=== PATIENT | male | born 1950 | race Caucasian/White ===

== ENCOUNTER → 2017-12-03 21:59 | Outpatient (CLI) | payer MEDICARE, OTHER, SELFPAY ==
--- NOTE | 2017-12-03 22:05 | RAD_ITS ---
STUDY: X-RAY - RIGHT FOOT CLINICAL: Male, 67 years old. Injury to right foot 3 weeks ago. Continued pain. TECHNIQUE: 2 view(s) of the foot. COMPARISON: None. FINDINGS: There are superior and inferior calcaneal spurs. Normal visualized subtalar, talonavicular, calcaneocuboid, tarsal and tarsometatarsal articulations. Normal metatarsi. Normal metatarsophalangeal joint of the great toe. Normal tibial and fibular sesamoid bones. Normal interphalangeal joint of the great toe. Normal phalanges of the great toe. Normal second through fifth metatarsophalangeal joints. Normal interphalangeal joints and phalanges of the lesser toes. The soft tissue structures are unremarkable. RAD/Foot 2 Views IMPRESSION: Calcaneal spurs. No acute pathology. Electronically Signed: Archie Moreno MD at 16:57 EST , Service support ,
== END ==
PROVIDERS: Family Provider Family Medicine; PCP Family Medicine; Visit Provider Nurse Practitioner
DX: M77.31 Calcaneal spur, right foot (principal)
CPT/HCPCS: 73620

== ENCOUNTER → 2018-01-15 07:51 | Outpatient (CLI) | payer MEDICARE, OTHER, SELFPAY ==
[2018-01-15 09:33] LABS: Hemoglobin A1c 8.7 % (4.2-6.3)
[2018-01-15 09:55] LABS: ALB/GLOB Ratio 0.9 RATIO (0.9-2.4); AST(SGOT) 15 U/L (15-37); Alanine Aminotransfer ALT/SGPT 36 U/L (16-61); Albumin, Serum 3.6 g/dL (3.2-5.0); Alkaline Phosphatase 64 U/L (45-117); Anion Gap 10 (5-15); BUN 30 mg/dL (7-18); BUN/Creat Ratio 20.5 RATIO (10-20); Calcium,Total 8.8 mg/dL (8.5-10.1); Chloride 105 mmol/L (98-107); Cholesterol 184 mg/dL (200); Creatinine, Serum 1.46 mg/dL (0.70-1.30); EST Glomerular Filtration Rate 51 mL/min (>60); Est Glom Filt Rate - Afr Amer 62 mL/min (>60); Globulin 4.2 g/dL (2.2-4.2); Glucose 170 mg/dL (74-106); High Density Lipoprotein 35 mg/dL; Potassium 4.6 mmol/L (3.5-5.1); Protein, Total 7.8 g/dL (6.4-8.2); Sodium Level 142 mmol/L (136-145); Triglycerides 129 mg/dL; Very Low Density Lipoprotein 26 mg/dL (5-40)
[2018-01-15 11:04] LABS: Microalbumin,Random Urine 27.8 mg/L (NO RANGE EST.); Microalbumin:Creatinine Ratio 12.2 mg/g CRE (<30 mg/g CRE)
== END ==
PROVIDERS: Family Provider Family Medicine; PCP Family Medicine; Visit Provider Nurse Practitioner
DX: E11.65 Type 2 diabetes mellitus with hyperglycemia (principal)
CPT/HCPCS: 36415; 80053; 80061; 82043; 82570; 83036

== ENCOUNTER → 2018-08-09 10:26 | Outpatient (CLI) | payer MEDICARE, OTHER, SELFPAY ==
[2018-08-09 12:26] LABS: Absolute Lymphocyte Count 1.47 X10^3/ul (0.83-4.51); Absolute Neutrophil Count 3.7 X10^3/uL (2.0-7.7); Basophil# 0.04 X10^3/uL; Basophil% 0.7 % (0-1); Eosinophil# 0.12 X10^3/uL; Eosinophils% 2.1 % (0-5); Hematocrit 44.4 % (40-54); Hemoglobin 14.8 g/dl (13.0-16.5); Lymphocyte # 1.47 X10^3/ul (4.0); Lymphocyte % 25.5 % (19-41); Mean Corp Hgb Conc 33.3 g/gl (32-36); Mean Corpuscular Hgb 28.8 pg (27.0-32.0); Mean Corpuscular Volume 86.5 fL (80-94); Mean Platelet Vol. 9.8 fl (6.2-12.0); Monocyte# 0.47 X10^3/uL; Monocyte% 8.1 % (0-10); Neutrophil # 3.65 X10^3/uL (2.7-7.7); Neutrophil % 63.3 % (47-70); Platelet Count 296 K/mm3 (150-450); RBC Distribution Width CV 13.2 % (11.6-14.6); RBC Distribution Width SD 40.8 fl (35.1-43.9); Red Blood Count 5.13 M/mm3 (4.6-6.2); White Blood Count 5.8 K/mm3 (4.4-11.0)
[2018-08-09 12:32] LABS: POSITIVE COUNT NO; POSITIVE DIFFERENTIAL NO; POSITIVE MORPHOLOGY NO
[2018-08-09 12:44] LABS: Anion Gap 8 (5-15); BUN 27 mg/dL (7-18); BUN/Creat Ratio 16.9 RATIO (10-20); Calcium,Total 9.4 mg/dL (8.5-10.1); Chloride 104 mmol/L (98-107); EST Glomerular Filtration Rate 46 mL/min (>60); Est Glom Filt Rate - Afr Amer 56 mL/min (>60); Glucose 234 mg/dL (74-106); Potassium 4.6 mmol/L (3.5-5.1); Sodium Level 139 mmol/L (136-145)
[2018-08-09 12:47] LABS: Hemoglobin A1c 9.4 % (4.2-6.3)
[2018-08-09 13:01] LABS: Microalbumin,Random Urine 38.6 mg/L (NO RANGE EST.); Microalbumin:Creatinine Ratio 18.4 mg/g CRE (<30 mg/g CRE)
== END ==
PROVIDERS: Family Provider Internal Medicine; PCP Internal Medicine; Referring Provider Internal Medicine; Visit Provider Internal Medicine
DX: E11.9 Type 2 diabetes mellitus without complications (principal); I10 Essential (primary) hypertension
CPT/HCPCS: 36415; 80048; 82043; 82570; 83036; 85025

== ENCOUNTER 2018-12-11 13:03 | Outpatient (RCR) | payer MEDICARE, OTHER, SELFPAY ==
[2018-11-08 10:59] VITALS: BMI 29.6
[2018-11-22 10:20] VITALS: BMI 29.6
== END 2018-12-29 23:59 ==
LOC: DC 13:03
PROVIDERS: Family Provider Internal Medicine; PCP Internal Medicine; Visit Provider Internal Medicine
DX: E11.9 Type 2 diabetes mellitus without complications (principal); Z71.3 Dietary counseling and surveillance
CPT/HCPCS: 97802

== ENCOUNTER 2019-01-02 13:00 | Outpatient (RCR) | payer MEDICARE, OTHER, SELFPAY ==
[2018-12-24 13:39] VITALS: BMI 29.6
== END 2019-01-28 23:59 ==
LOC: DC 13:00
PROVIDERS: Family Provider Internal Medicine; PCP Internal Medicine; Visit Provider Internal Medicine
DX: E11.9 Type 2 diabetes mellitus without complications (principal); Z71.3 Dietary counseling and surveillance
CPT/HCPCS: 97803; G0108

== ENCOUNTER 2019-02-20 11:30 | Outpatient (RCR) | payer MEDICARE, OTHER, SELFPAY ==
[2018-12-24 13:39] VITALS: BMI 29.6
[2019-01-30 15:54] VITALS: BMI 29.6
== END 2019-02-20 23:59 | disposition home or self-care (01) ==
LOC: DC 11:30
PROVIDERS: Family Provider Internal Medicine; PCP Internal Medicine; Visit Provider Internal Medicine
DX: E11.9 Type 2 diabetes mellitus without complications (principal); Z71.3 Dietary counseling and surveillance
CPT/HCPCS: 97803; G0108

== ENCOUNTER → 2019-08-03 08:00 | Outpatient (CLI) | payer MEDICARE, OTHER, SELFPAY ==
[2019-07-31 14:05] VITALS: BMI 29.6
--- NOTE | 2019-08-03 08:04 | EKG12_ITS ---
Test Reason : Blood Pressure : / mmHG Vent. Rate : 067 BPM Atrial Rate : 067 BPM P-R Int : 204 ms QRS Dur : 096 ms QT Int : 408 ms P-R-T Axes : 037 -05 029 degrees QTc Int : 431 ms Normal sinus rhythm Inferior infarct , age undetermined , cannot be excluded Abnormal ECG Confirmed by VIRAL CACERES, ANNI ([id number]), news assignment editor ALVERTO CELESTIN ([id number]) on 08/04/2019 9:46:36 AM Referred By: JANI Confirmed By:ANNI STRATTON MD
[2019-08-03 08:20] LABS: Absolute Lymphocyte Count 2.37 X10^3/uL (0.83-4.51); Absolute Neutrophil Count 7.1 X10^3/uL (2.0-7.7); Basophil# 0.08 X10^3/uL; Basophil% 0.7 % (0-1); Eosinophil# 0.26 X10^3/uL; Eosinophils% 2.4 % (0-5); Hematocrit 45.9 % (40-54); Hemoglobin 14.8 g/dL (13.0-16.5); Lymphocyte # 2.37 X10^3/ul (4.0); Lymphocyte % 22.2 % (19-41); Mean Corp Hgb Conc 32.2 g/dL (32-36); Mean Corpuscular Hgb 28.1 pg (27.0-32.0); Mean Corpuscular Volume 87.1 fL (80-94); Mean Platelet Vol. 8.5 fl (6.2-12.0); Monocyte# 0.85 X10^3/uL; NRBC Flagged by Analyzer 0 % (0-5); Neutrophil # 7.09 X10^3/uL (2.7-7.7); Neutrophil % 66.3 % (47-70); Platelet Count 321 K/mm3 (150-450); RBC Distribution Width CV 13.2 % (11.6-14.6); RBC Distribution Width SD 41.5 fl (35.1-43.9); Red Blood Count 5.27 M/mm3 (4.6-6.2); White Blood Count 10.7 K/mm3 (4.4-11.0)
[2019-08-03 08:51] LABS: ALB/GLOB Ratio 0.8 RATIO (0.9-2.4); AST(SGOT) 17 U/L (15-37); Alanine Aminotransfer ALT/SGPT 32 U/L (16-61); Albumin, Serum 3.8 g/dL (3.2-5.0); Alkaline Phosphatase 63 U/L (45-117); Anion Gap 7 (5-15); BUN 28 mg/dL (7-18); BUN/Creat Ratio 18.7 RATIO (10-20); Calcium,Total 9.9 mg/dL (8.5-10.1); Chloride 104 mmol/L (98-107); Cholesterol 196 mg/dL (200); EST Glomerular Filtration Rate 49 mL/min (>60); Est Glom Filt Rate - Afr Amer 60 mL/min (>60); Globulin 4.5 g/dL (2.2-4.2); Glucose 157 mg/dL (74-106); High Density Lipoprotein 42 mg/dL; PSA,Total - Annual Screen 0.24 ng/mL (0.00-4.00); Potassium 4.4 mmol/L (3.5-5.1); Protein, Total 8.3 g/dL (6.4-8.2); Sodium Level 138 mmol/L (136-145); Triglycerides 100 mg/dL; Very Low Density Lipoprotein 20 mg/dL (5-40)
[2019-08-03 10:56] LABS: Microalbumin,Random Urine 21.4 mg/L (NO RANGE EST.)
== END ==
PROVIDERS: Family Provider Internal Medicine; PCP Internal Medicine; Visit Provider Internal Medicine
DX: E11.9 Type 2 diabetes mellitus without complications (principal); E78.5 Hyperlipidemia, unspecified; I10 Essential (primary) hypertension; K21.9 Gastro-esophageal reflux disease without esophagitis; N40.0 Benign prostatic hyperplasia without lower urinary tract symptoms; Z12.5 Encounter for screening for malignant neoplasm of prostate
CPT/HCPCS: 80053; 80061; 82043; 82570; 84153; 85025; 93005; G0103

== ENCOUNTER → 2019-08-14 06:12 | Outpatient (CLI) | payer MEDICARE, OTHER, SELFPAY ==
[2019-07-31 14:05] VITALS: BMI 29.6
--- NOTE | 2019-08-15 12:53 | STRESSREP ---
Stress Test Report Date: 08/14/2019 Procedure: Pharmacologic stress nuclear imaging study Indications: Abnormal EKG Consent: Per the patient Procedure: The patient underwent pharmacologic (Regadenoson) evaluation with a peak heart rate of 104 beats per minute (68 %predicted maximal heart rate) and a peak blood pressure of 190/110 mmHg. The baseline ECG demonstrated normal sinus rhythm. EKG during lexiscan infusion revealed no significant ischemic changes. EKG post infusion revealed no significant ischemic changes Patient had episodes of type I and type II second-degree AV block with Lexiscan infusion which resolved on its own. [There was no complaint of chest discomfort during pharmacologic infusion or recovery]. The examination was discontinued secondary to completion of protocol. Impression: 1. Lexiscan stress test test is negative for Lexiscan infusion induced EKG changes of ischemia. 2. Lexiscan stress test test is negative for Lexiscan infusion induced chest pain. 3. Results of the nuclear portion of the test is as below Myocardial perfusion imaging study: Technique: The patient was injected with 10 millicuries of technetium 99m Cardiolite and subsequently rest SPECT Cardiolite nuclear imaging was obtained in the horizontal long, vertical long, and short axis views. The patient underwent pharmacologic (Regadenoson) evaluation. Please see above for details. The patient was injected with 30 millicuries of technetium 99m Cardiolite and subsequently stress SPECT Cardiolite nuclear imaging was obtained in the horizontal long, vertical long, and short axis views. A gated Cardiolite study at peak stress was obtained. Interpretation: Rest and stress SPECT Cardiolite nuclear imaging status post realignment, normalization, and attenuation correction demonstrate [overall normal myocardial radioisotope uptake with no evidence of significant ischemia or infarction]. Gated images reveal significant regional wall motion abnormalities. The reported LVEF is 63 %. Impression: 1. There is no evidence of significant ischemia or infarction. 2. Estimated ejection fraction is 63%. This note was generated with [facility] software. It may contain incorrect words, spelling, and punctuation that were not noted in checking the note before signing.
== END ==
PROVIDERS: Family Provider Internal Medicine; PCP Internal Medicine; Referring Provider Internal Medicine; Visit Provider Internal Medicine
DX: E11.9 Type 2 diabetes mellitus without complications (principal); I10 Essential (primary) hypertension; R94.31 Abnormal electrocardiogram [ECG] [EKG]
CPT/HCPCS: 78452; 93017; A9500; A4216; J2785

== ENCOUNTER → 2020-01-21 08:03 | Outpatient (CLI) | payer MEDICARE, OTHER, SELFPAY ==
[2020-01-20 13:49] VITALS: BMI 29.6
[2020-01-21 08:56] LABS: Anion Gap 8 (5-15); BUN 28 mg/dL (7-18); BUN/Creat Ratio 19.9 RATIO (10-20); Calcium,Total 9.3 mg/dL (8.5-10.1); Chloride 110 mmol/L (98-107); Creatinine, Serum 1.41 mg/dL (0.70-1.30); EST Glomerular Filtration Rate 53 mL/min (>60); Est Glom Filt Rate - Afr Amer 64 mL/min (>60); Glucose 140 mg/dL (74-106); Potassium 4.2 mmol/L (3.5-5.1); Sodium Level 142 mmol/L (136-145)
[2020-01-21 08:59] LABS: Hemoglobin A1c 8.5 % (4.2-6.3)
== END ==
PROVIDERS: PCP Internal Medicine; Referring Provider Internal Medicine; Visit Provider Internal Medicine
DX: E11.9 Type 2 diabetes mellitus without complications (principal); I10 Essential (primary) hypertension
CPT/HCPCS: 36415; 80048; 83036

== ENCOUNTER → 2020-04-26 22:47 | Outpatient (CLI) | payer MEDICARE, OTHER, SELFPAY ==
[2020-04-21 10:53] VITALS: BMI 29.6
--- NOTE | 2020-04-27 | RAD_ITS ---
STUDY: X-RAY - PELVIS AND RIGHT HIP REASON FOR EXAM: Male, 69 years old. C/O RT HIP PAIN X 2 MONTHS -- NKI TECHNIQUE: 3 views of the pelvis and hip. COMPARISON: None. FINDINGS: There is a non-specific bowel gas pattern. There is vascular calcification of the left greater than right superficial femoral artery. There is abundant stool in the visualized colon. There is visualized degenerative change in the lumbar spine. Normal bilateral iliac wings, sacroiliac joints and visualized sacrum. Normal bilateral superior and inferior pubic rami. Normal pubic symphysis. Normal bilateral ischial tuberosities. There is mild degenerative change in the hip joints. There is no visualized acute fracture. RAD/HIP, UNI W/ Pelvis 2-3 Views IMPRESSION: Mild Degenerative change. No visualized acute fracture. Electronically Signed: Alfreda Gutierrez MD at 5:20 EDT Tel , Service support ,
== END ==
PROVIDERS: PCP Internal Medicine; Visit Provider Internal Medicine
DX: M16.11 Unilateral primary osteoarthritis, right hip (principal)
CPT/HCPCS: 73502

== ENCOUNTER → 2020-08-14 08:07 | Outpatient (CLI) | payer MEDICARE, OTHER, SELFPAY ==
[2020-07-29 14:05] VITALS: BMI 29.4
[2020-08-14 08:57] LABS: Absolute Lymphocyte Count 2.25 X10^3/uL (0.83-4.51); Absolute Neutrophil Count 4.4 X10^3/uL (2.0-7.7); Basophil# 0.06 X10^3/uL; Basophil% 0.8 % (0-1); Eosinophil# 0.29 X10^3/uL; Eosinophils% 3.8 % (0-5); Hematocrit 45.6 % (40-54); Hemoglobin 14.2 g/dL (13.0-16.5); Lymphocyte # 2.25 X10^3/ul (4.0); Lymphocyte % 29.2 % (19-41); Mean Corp Hgb Conc 31.1 g/dL (32-36); Mean Corpuscular Hgb 27.7 pg (27.0-32.0); Mean Corpuscular Volume 88.9 fL (80-94); Mean Platelet Vol. 8.8 fl (6.2-12.0); Monocyte# 0.69 X10^3/uL; NRBC Flagged by Analyzer 0 % (0-5); Neutrophil # 4.38 X10^3/uL (2.7-7.7); Neutrophil % 56.8 % (47-70); Platelet Count 304 K/mm3 (150-450); RBC Distribution Width CV 13.2 % (11.6-14.6); RBC Distribution Width SD 42.9 fl (35.1-43.9); Red Blood Count 5.13 M/mm3 (4.6-6.2); White Blood Count 7.7 K/mm3 (4.4-11.0)
[2020-08-14 09:25] LABS: ALB/GLOB Ratio 0.9 RATIO (0.9-2.4); AST(SGOT) 8 U/L (15-37); Alanine Aminotransfer ALT/SGPT 26 U/L (16-61); Albumin, Serum 3.6 g/dL (3.2-5.0); Alkaline Phosphatase 59 U/L (45-117); Anion Gap 5 (5-15); BUN 28 mg/dL (7-18); BUN/Creat Ratio 20.3 RATIO (10-20); Calcium,Total 9.3 mg/dL (8.5-10.1); Chloride 109 mmol/L (98-107); Cholesterol 138 mg/dL (200); Creatinine, Serum 1.38 mg/dL (0.70-1.30); EST Glomerular Filtration Rate 54 mL/min (>60); Est Glom Filt Rate - Afr Amer 66 mL/min (>60); Globulin 4.1 g/dL (2.2-4.2); Glucose 82 mg/dL (74-106); High Density Lipoprotein 50 mg/dL; Potassium 3.9 mmol/L (3.5-5.1); Protein, Total 7.7 g/dL (6.4-8.2); Sodium Level 142 mmol/L (136-145); Triglycerides 75 mg/dL; Very Low Density Lipoprotein 15 mg/dL (5-40)
[2020-08-14 09:31] LABS: Microalbumin,Random Urine 12.4 mg/L (NO RANGE EST.); Microalbumin:Creatinine Ratio 9.5 mg/g CRE (<30 mg/g CRE)
== END ==
PROVIDERS: PCP Internal Medicine; Referring Provider Internal Medicine; Visit Provider Internal Medicine
DX: E11.9 Type 2 diabetes mellitus without complications (principal); I10 Essential (primary) hypertension; E78.5 Hyperlipidemia, unspecified
CPT/HCPCS: 36415; 80053; 80061; 82043; 82570; 85025

== ENCOUNTER → 2020-09-30 14:08 | Outpatient (CLI) | payer MEDICARE, OTHER, SELFPAY ==
[2020-09-30 15:17] LABS: Absolute Lymphocyte Count 2.17 X10^3/uL (0.83-4.51); Absolute Neutrophil Count 6.6 X10^3/uL (2.0-7.7); Basophil# 0.06 X10^3/uL; Basophil% 0.6 % (0-1); Eosinophil# 0.21 X10^3/uL; Eosinophils% 2.2 % (0-5); Hematocrit 43.8 % (40-54); Hemoglobin 14.5 g/dL (13.0-16.5); Lymphocyte # 2.17 X10^3/ul (4.0); Lymphocyte % 22.5 % (19-41); Mean Corp Hgb Conc 33.1 g/dL (32-36); Mean Corpuscular Hgb 27.9 pg (27.0-32.0); Mean Corpuscular Volume 84.2 fL (80-94); Monocyte# 0.56 X10^3/uL; Monocyte% 5.8 % (0-10); NRBC Flagged by Analyzer 0 % (0-5); Neutrophil # 6.62 X10^3/uL (2.7-7.7); Neutrophil % 68.6 % (47-70); Platelet Count 302 K/mm3 (150-450); RBC Distribution Width SD 39.8 fl (35.1-43.9); White Blood Count 9.7 K/mm3 (4.4-11.0)
[2020-09-30 15:30] LABS: ALB/GLOB Ratio 0.9 RATIO (0.9-2.4); AST(SGOT) 11 U/L (15-37); Alanine Aminotransfer ALT/SGPT 28 U/L (16-61); Albumin, Serum 3.7 g/dL (3.2-5.0); Alkaline Phosphatase 55 U/L (45-117); Anion Gap 7 (5-15); BUN 32 mg/dL (7-18); BUN/Creat Ratio 24.1 RATIO (10-20); Calcium,Total 9.3 mg/dL (8.5-10.1); Chloride 102 mmol/L (98-107); Creatinine, Serum 1.33 mg/dL (0.70-1.30); EST Glomerular Filtration Rate 57 mL/min (>60); Est Glom Filt Rate - Afr Amer 69 mL/min (>60); Globulin 3.9 g/dL (2.2-4.2); Glucose 243 mg/dL (74-106); Potassium 4.1 mmol/L (3.5-5.1); Protein, Total 7.6 g/dL (6.4-8.2); Sodium Level 133 mmol/L (136-145)
== END ==
PROVIDERS: PCP Internal Medicine; Referring Provider Internal Medicine; Visit Provider Internal Medicine
DX: R42 Dizziness and giddiness (principal)
CPT/HCPCS: 36415; 80053; 85025

== ENCOUNTER → 2020-10-10 11:47 | Outpatient (CLI) | payer MEDICARE, OTHER, SELFPAY ==
--- NOTE | 2020-10-10 11:50 | RAD_ITS ---
STUDY: X-RAY - CERVICAL SPINE REASON FOR EXAM: Male, 70 years old. neck pain, vertigo TECHNIQUE: 3 view(s) of the cervical spine were obtained. COMPARISON: None FINDINGS: Normal anterior atlantoaxial articulation. Normal odontoid process. Normal cervical lordosis. There is mild spondylosis of the mid cervical levels. Normal disc space heights. No subluxation. There are atherosclerotic vascular calcifications of the carotid arteries. RAD/Cerv Spine 2 or 3 Views IMPRESSION: Minor cervical spondylosis. Preservation of disc heights. Atherosclerosis of the carotid arteries. Electronically Signed: Josué Rodriguez MD ([place]oks) at 14:10 EST , Service support ,
== END ==
PROVIDERS: PCP Internal Medicine; Visit Provider Internal Medicine
DX: M45.2 Ankylosing spondylitis of cervical region (principal); R42 Dizziness and giddiness
CPT/HCPCS: 72040

== ENCOUNTER → 2020-10-28 13:53 | Outpatient (CLI) | payer MEDICARE, OTHER, SELFPAY ==
[2020-10-28 13:11] VITALS: BMI 30.4
[2020-10-28 15:10] LABS: Absolute Lymphocyte Count 2.22 X10^3/uL (0.83-4.51); Absolute Neutrophil Count 4.6 X10^3/uL (2.0-7.7); Basophil# 0.07 X10^3/uL; Basophil% 0.9 % (0-1); Eosinophil# 0.23 X10^3/uL; Hematocrit 42.9 % (40-54); Hemoglobin 13.8 g/dL (13.0-16.5); Lymphocyte # 2.22 X10^3/ul (4.0); Lymphocyte % 28.6 % (19-41); Mean Corp Hgb Conc 32.2 g/dL (32-36); Mean Corpuscular Hgb 27.6 pg (27.0-32.0); Mean Corpuscular Volume 85.8 fL (80-94); Mean Platelet Vol. 8.9 fl (6.2-12.0); Monocyte# 0.59 X10^3/uL; Monocyte% 7.6 % (0-10); NRBC Flagged by Analyzer 0 % (0-5); Neutrophil # 4.63 X10^3/uL (2.7-7.7); Neutrophil % 59.5 % (47-70); Platelet Count 294 K/mm3 (150-450); RBC Distribution Width CV 13.2 % (11.6-14.6); RBC Distribution Width SD 40.2 fl (35.1-43.9); White Blood Count 7.8 K/mm3 (4.4-11.0)
[2020-10-28 15:19] LABS: Erythrocyte Sedimentation Rate 11 mm/hr (0-20)
[2020-10-28 15:22] LABS: Bacteria 0 SEEN /hpf (None Seen); Mucous, Urine 0 SEEN /hpf (<or=2+); Red Blood Cells-Urine 0 SEEN /hpf (0-5); Squamous Epithelial Cells - UA 0 SEEN /hpf (0-5)
[2020-10-28 15:28] LABS: AST(SGOT) 11 U/L (15-37); Alanine Aminotransfer ALT/SGPT 28 U/L (16-61); Albumin, Serum 3.7 g/dL (3.2-5.0); Alkaline Phosphatase 53 U/L (45-117); Anion Gap 5 (5-15); BUN 31 mg/dL (7-18); BUN/Creat Ratio 20.3 RATIO (10-20); CRP < 2.90 mg/L (0.0-3.0); Calcium,Total 9.2 mg/dL (8.5-10.1); Chloride 106 mmol/L (98-107); Creatinine, Serum 1.53 mg/dL (0.70-1.30); EST Glomerular Filtration Rate 48 mL/min (>60); Est Glom Filt Rate - Afr Amer 58 mL/min (>60); Globulin 3.8 g/dL (2.2-4.2); Glucose 111 mg/dL (74-106); Hemoglobin A1c 8.7 % (3.8-5.6); Potassium 4.3 mmol/L (3.5-5.1); Protein, Total 7.5 g/dL (6.4-8.2); Sodium Level 139 mmol/L (136-145)
--- NOTE | 2020-10-28 15:45 | RAD_ITS ---
STUDY: X-RAY CHEST REASON FOR EXAM: Male, 70 years old. MALAISE, FATIGUE, NO CHEST COMPLAINTS, NECK PAIN AND STIFFNESS TECHNIQUE: PA and lateral views of the chest. COMPARISON: None. FINDINGS: The lungs are clear and expanded. There is no demonstrated pleural abnormality. Normal size heart. Normal mediastinum and thierno. Normal visualized pulmonary arteries. Normal visualized aortic arch and descending thoracic aorta. There are diffuse degenerative changes of the visualized thoracic spine. Normal visualized ribs, clavicles, and shoulders. There is no demonstrated abnormality of the visualized soft tissue structures of the upper abdomen. RAD/Chest PA and Lateral IMPRESSION: No acute abnormality is seen. Electronically Signed: Jude Aguayo MD at 9:42 EST , Service support ,
[2020-10-28 17:44] LABS: Color, Urine Yellow (Yellow); Glucose, Dipstick 100 mg/dl (Normal); Ketone-Dipstick 5 mg/dl (Negative); Leukocyte Esterase-Dipstick 25 /ul (Negative); Nitrite-Dipstick Negative (Negative); Occult Blood-Urine Negative /ul (Negative); Protein-Dipstick 30 mg/dl (Negative); Specific Gravity, Urine 1.015 (1.002-1.030); Urine Clarity Clear (Clear); Urine Urobilinogen Normal (Normal)
[2020-10-28 17:57] LABS: Microalbumin:Creatinine Ratio 59.9 mg/g CRE (<30 mg/g CRE); Urine Bilirubin Dipstick 1 mg/dL (Negative)
[2020-10-28 18:32] LABS: Hyaline Cast 5-10 SEEN /lpf (0-5); White Blood Cells 0-5 SEEN /hpf (0-5)
== END ==
PROVIDERS: PCP Internal Medicine; Referring Provider Internal Medicine; Visit Provider Internal Medicine
DX: R53.81 Other malaise (principal); R53.83 Other fatigue; E11.9 Type 2 diabetes mellitus without complications
CPT/HCPCS: 36415; 71046; 80053; 81001; 82043; 82570; 83036; 85025; 85652; 86140

== ENCOUNTER 2020-11-05 13:32 | Outpatient (RCR) | payer MEDICARE, OTHER, SELFPAY ==
[2020-10-28 13:11] VITALS: BMI 30.4
== END 2020-11-05 23:59 ==
LOC: IMMUN 13:32
PROVIDERS: PCP Internal Medicine; Visit Provider Family Medicine
DX: Z23 Encounter for immunization (principal)
CPT/HCPCS: 0011A; 0012A

== ENCOUNTER → 2020-11-09 10:37 | Outpatient (CLI) | payer MEDICARE, OTHER, SELFPAY ==
[2020-10-28 13:11] VITALS: BMI 30.4
--- NOTE | 2020-11-09 10:41 | CDU_ITS ---
Reason For Study: carotid stenosis, dizziness Rt. Velocities/BP Lt. Velocities/BP Prox CCA 51.3/13.4 cm/sec. Prox CCA 86.3/22.5 cm/sec. Mid CCA 48.6/13.4 cm/sec. Mid CCA 92.5/23.7 cm/sec. Dist CCA 49.9/12.1 cm/sec. Dist CCA 87.6/22.5 cm/sec. Prox ICA 266.0/78.5 cm/sec. Prox ICA 144.8/37.1 cm/sec. Mid ICA 153.6/44.8 cm/sec. Mid ICA 113.8/35.3 cm/sec. Dist ICA 275.5/79.6 cm/sec. Dist ICA 68.3/19.3 cm/sec. Rt. ICA/CCA = 5.6. Lt. ICA/CCA = 1.6. Prox ECA 141.2/17.0 cm/sec. Prox ECA 171.8/22.6 cm/sec. Rt. Vert. 40.9/12.6 cm/sec. Lt. Vert. 26.4/6.4 cm/sec. Right Extracranial There is homogeneous, smooth atherosclerotic plaque noted in the right common carotid artery. There is heterogeneous, irregular atherosclerotic plaque noted in the right internal carotid artery. There is heterogeneous, irregular atherosclerotic plaque noted in the right external carotid artery. Antegrade flow is noted in the right vertebral artery. Left Extracranial There is homogeneous, smooth atherosclerotic plaque noted in the left common carotid artery. There is heterogeneous, irregular atherosclerotic plaque noted in the left internal carotid artery. There is heterogeneous, irregular atherosclerotic plaque noted in the left external carotid artery. Antegrade flow is noted in the left vertebral artery. Procedure Carotid Duplex [id number]. This is a Carotid Duplex examination using B-mode, color flow and specral Doppler. The exam was diagnostic. Exam performed in department. Interpretation Summary Irregular calcific plaque with shadowing at the proximal right internal carotid artery with greater than 70% stenosis. <50% stenosis right external carotid Irregular calcific plaque with shadowing at the proximal left internal carotid artery with 50 to 69% stenosis. <50% stenosis left external carotid Patent and antegrade vertebrals bilaterally Ordering Physician: Severino Hylton Performed By: Monico Marroquin RVT
== END ==
PROVIDERS: PCP Internal Medicine; Referring Provider Internal Medicine; Visit Provider Internal Medicine
DX: I65.23 Occlusion and stenosis of bilateral carotid arteries (principal); R42 Dizziness and giddiness
CPT/HCPCS: 93880

== ENCOUNTER → 2020-11-19 12:55 | Outpatient (CLI) | payer MEDICARE, OTHER, SELFPAY ==
[2020-11-12 13:07] VITALS: BMI 29.4
--- NOTE | 2020-11-19 12:57 | CT_ITS ---
EXAM: CT ANGIOGRAPHY NECK WITHOUT AND WITH INTRAVENOUS CONTRAST CLINICAL INDICATION: BILATERAL CAROTID STENOSIS TECHNIQUE: Routine carotid CT angiography protocol was performed without and with intravenous contrast. Nascet criteria using the distal ICAs for comparison were used for evaluation of stenoses. This CT exam was performed using one or more of the following dose reduction techniques: automated exposure control, adjustment of the mA and/or kV according to patient size, and/or use of iterative reconstruction technique. This report was created using [employer] report generation technology. 3D and MIP reconstructed images were created and reviewed. CONTRAST: IV 100ML ISOVUE 370 COMPARISON: None. FINDINGS: VASCULATURE: RIGHT COMMON CAROTID ARTERY: Unremarkable. No occlusion or significant stenosis. No dissection. RIGHT INTERNAL CAROTID ARTERY: Calcified and noncalcified plaque of the proximal right ICA. 2 cm long luminal narrowing with short segment (6 mm) long severe (78%) stenosis, 1.5 cm distal to the carotid bifurcation. RIGHT EXTERNAL CAROTID ARTERY: Atherosclerosis with mild stenosis of the right external carotid artery. No occlusion. RIGHT VERTEBRAL ARTERY: The right vertebral artery is dominant. No occlusion or significant stenosis. No dissection. LEFT COMMON CAROTID ARTERY: Unremarkable. No occlusion or significant stenosis. No dissection. LEFT INTERNAL CAROTID ARTERY: Calcified and noncalcified plaque in the proximal left ICA. 1.9 cm long luminal narrowing with stenosis measuring up to 60%, 9 mm beyond the carotid bifurcation. LEFT EXTERNAL CAROTID ARTERY: Atherosclerosis with mild stenosis of the left external carotid artery. No occlusion. LEFT VERTEBRAL ARTERY: Unremarkable. No occlusion or significant stenosis. No dissection. GREAT VESSELS OF AORTIC ARCH: Unremarkable. Normal anatomy, patent. NECK: BONES/JOINTS: Unremarkable. SOFT TISSUES: Unremarkable. LUNG APICES: Clear. CAROTID STENOSIS REFERENCE USING NASCET CRITERIA: % ICA stenosis = (1 - narrowest ICA diameter/diameter of distal cervical ICA) x 100. Mild - <50% stenosis. Moderate - 50-69% stenosis. Severe - 70-94% stenosis. Near occlusion - 95-99% stenosis. Occluded - 100% stenosis. CT/CTA Neck W/WO Contrast IMPRESSION: 1. Severe right ICA stenosis, 78%. 2. Moderate left ICA stenosis, 60%. Electronically Signed: Josué Rodriguez MD ([place]) at 16:58 EST , Service support ,
[2020-11-19 13:11] VITALS: BP 186/95; PULSE 62; RESP 16; TEMP 36.6; O2SAT 99; BMI 28.1
[2020-11-19] MEDS: 0.9% Normal Saline 1,000 ML 500 ML IV (13:14)
== END ==
PROVIDERS: PCP Internal Medicine; Referring Provider Surgery; Visit Provider Surgery
DX: I65.23 Occlusion and stenosis of bilateral carotid arteries (principal)
CPT/HCPCS: 70498; J7030; Q9967; A4216

== ENCOUNTER 2020-12-01 05:25 | Inpatient (IN) | payer MEDICARE, OTHER, SELFPAY ==
[2020-11-23 14:40] VITALS: BMI 29.4
[2020-11-27 09:58] LABS: Absolute Lymphocyte Count 2.33 X10^3/uL (0.83-4.51); Absolute Neutrophil Count 4.7 X10^3/uL (2.0-7.7); Basophil# 0.06 X10^3/uL; Basophil% 0.7 % (0-1); Eosinophil# 0.23 X10^3/uL; Eosinophils% 2.8 % (0-5); Hematocrit 47.8 % (40-54); Hemoglobin 15.3 g/dL (13.0-16.5); Lymphocyte # 2.33 X10^3/ul (4.0); Lymphocyte % 28.3 % (19-41); Mean Corpuscular Volume 87.4 fL (80-94); Monocyte% 10.9 % (0-10); NRBC Flagged by Analyzer 0 % (0-5); Neutrophil # 4.69 X10^3/uL (2.7-7.7); Neutrophil % 56.9 % (47-70); Platelet Count 344 K/mm3 (150-450); RBC Distribution Width CV 13.2 % (11.6-14.6); RBC Distribution Width SD 42.5 fl (35.1-43.9); Red Blood Count 5.47 M/mm3 (4.6-6.2); White Blood Count 8.2 K/mm3 (4.4-11.0)
[2020-11-27 10:16] LABS: Anion Gap 7 (5-15); BUN 31 mg/dL (7-18); Calcium,Total 9.2 mg/dL (8.5-10.1); Chloride 104 mmol/L (98-107); Creatinine, Serum 1.72 mg/dL (0.70-1.30); EST Glomerular Filtration Rate 42 mL/min (>60); Est Glom Filt Rate - Afr Amer 51 mL/min (>60); Glucose 186 mg/dL (74-106); Potassium 4.5 mmol/L (3.5-5.1); Sodium Level 139 mmol/L (136-145)
[2020-11-27 10:20] LABS: Hemoglobin A1c 8.4 % (3.8-5.6)
--- NOTE | 2020-11-29 09:15 | EKG12_ITS ---
Test Reason : PRE SURGEY Blood Pressure : / mmHG Vent. Rate : 067 BPM Atrial Rate : 067 BPM P-R Int : 192 ms QRS Dur : 092 ms QT Int : 402 ms P-R-T Axes : 044 027 044 degrees QTc Int : 424 ms Normal sinus rhythm Normal ECG Confirmed by EDWIN CACERES, GRISELDA ([id number]), medical editor ALVERTO CELESTIN ([id number]) on 11/30/2020 10:30:03 AM Referred By: Hai Schmid Confirmed By:GRISELDA PINEDA MD
--- NOTE | 2020-11-29 10:25 | EKG12_ITS ---
Test Reason : PRE SURGEY Blood Pressure : / mmHG Vent. Rate : 069 BPM Atrial Rate : 069 BPM P-R Int : 200 ms QRS Dur : 090 ms QT Int : 400 ms P-R-T Axes : 043 037 051 degrees QTc Int : 428 ms Normal sinus rhythm Normal ECG When compared with ECG of 03-AUG-2019 09:06, Criteria for Inferior infarct are no longer Present Confirmed by EDWIN CACERES, GRISELDA ([id number]), editor continuity and script ALVERTO CELESTIN ([id number]) on 11/30/2020 1:14:42 PM Referred By: Hai Schmid Confirmed By:GRISELDA PINEDA MD
[2020-12-01] VITALS (29 sets, daily range): BP systolic 114–188; BP diastolic 64–99; PULSE 62–97; RESP 16–18; TEMP 35.9–36.9; O2SAT 92–100; BMI 30.9
--- NOTE | 2020-12-01 05:49 | HP.PCM_ITS ---
Problem List (1) Carotid stenosis, bilateral Status: Acute (2) Dizziness, nonspecific Status: Acute History and Physical Date of Admission: 12/01/20 Intake Visit Reasons: F/U Neck CTA 11/19 Chief Complaint: discuss carotid US and CTA Customer Operations Representative Required: No Is patient in pain?: No Allergies Penicillins Allergy (Severe, Verified 11/23/20 14:40) Unknown Medications Pen needles #100 ea 11/08/18 [Rx Confirmed 11/23/20] flash glucose scanning reader See Rx Instructions .ROUTE .MEDSUPPLY #1 ea 02/10/20 [Rx Confirmed 11/23/20] flash glucose sensor See Rx Instructions .ROUTE .MEDSUPPLY #1 ea 02/10/20 [Rx Confirmed 11/23/20] blood-glucose meter See Rx Instructions .ROUTE .MEDSUPPLY #1 ea 02/21/20 [Rx Confirmed 11/23/20] rosuvastatin 20 mg tablet 20 mg PO DAILY #90 tab 05/25/20 [Rx Confirmed 11/23/20] FreeStyle Lite Strips See Dose Instructions .ROUTE .MEDSUPPLY #100 ea NS 06/17/20 [Rx Confirmed 11/23/20] lisinopril 10 mg-hydrochlorothiazide 12.5 mg tablet 1 tab PO BID #180 tab 07/15/20 [Rx Confirmed 11/23/20] pantoprazole 40 mg tablet,delayed release 40 mg PO QDAY #90 tab 09/27/20 [Rx Confirmed 11/23/20] meclizine 25 mg tablet 25 mg PO BID PRN #60 tab 09/30/20 [Rx Confirmed 11/23/20] metformin 850 mg tablet See Rx Instructions .ROUTE .COMPLEX #180 tab 10/22/20 [Rx Confirmed 11/23/20] insulin human U-100 NPH-regulr 70-30 mix 100 unit/mL subcutaneous susp See Rx Instructions SC QAM ml 10/28/20 [History Confirmed 11/23/20] aspirin 81 mg tablet,delayed release 81 mg PO DAILY #90 tab 11/09/20 [Rx Confirmed 11/23/20] [facility] Medical History Carotid stenosis, bilateral (Acute) Right hip pain (Chronic) Chronic kidney disease, stage III (moderate) (Chronic) Hyperlipidemia (Chronic) Type 2 diabetes mellitus (Chronic) Vision problems (Chronic) Skin cancer (Chronic) GERD (gastroesophageal reflux disease) (Chronic) High cholesterol (Chronic) Diabetes type 2, controlled (Chronic) Arthritis (Chronic) Seasonal allergies (Chronic) HTN (hypertension) (Chronic) Hypertension, essential (Acute) Diabetes mellitus type 1, controlled, without complications (Acute) Surgical History History of esophageal dilatation (Acute) History of esophagogastroduodenoscopy (EGD) (Acute) Family History Mother Breast cancer Myocardial infarction Hypertension Diabetes Heart disease CAD (coronary artery disease) Father Myocardial infarction Social History (Updated 11/23/20 @ 15:[address] Hai Schmid MD) Smoking Status: Never smoker second hand exposure: No alcohol intake: current alcohol intake frequency: a few times a month Alcohol type: beer substance use type: does not use caffeine: Yes what type of physical activity do you participate in: aerobics, weight training frequency: 3-4 times per week HPI HPI HPI: REJI JUSTICE, is a 70 M who presents to the office today for Surgical follow-up of his CTA of the carotid.The CT demonstrates a high-grade stenosis of the right internal carotid as noted below. My previous office notes are reflected below as well.The patient still has nonspecific dizziness issues. If he turns over in bed he will feel like the room is spinning. Sometimes in the car he will feel a motion type of affect. He denies any focal motor or sensory loss. No speech deficit. [facility] Imaging Services [address] [place] [id number] CTA Neck W/WO Contrast MR#: [id number] Name: REJI JUSTICE LEERep #:[id number] : 1950M 70 From: Josué Rodriguez MD PCP:Dr. Severino Hylton MD Status:REG CLI Study:CTA Neck W/WO Contrast Date of Exam:11/19/20 Exam#[id number] Ordering Dr: Hai Schmid MD EXAM: CT ANGIOGRAPHY NECK WITHOUT AND WITH INTRAVENOUS CONTRAST CLINICAL INDICATION: BILATERAL CAROTID STENOSIS TECHNIQUE: Routine carotid CT angiography protocol was performed without and with intravenous contrast. Nascet criteria using the distal ICAs for comparison were used for evaluation of stenoses. This CT exam was performed using one or more of the following dose reduction techniques: automated exposure control, adjustment of the mA and/or kV according to patient size, and/or use of iterative reconstruction technique. This report was created using [employer] report Snapette technology. 3D and MIP reconstructed images were created and reviewed. CONTRAST: IV 100ML ISOVUE 370 COMPARISON: None. FINDINGS: VASCULATURE: RIGHT COMMON CAROTID ARTERY: Unremarkable. No occlusion or significant stenosis. No dissection. RIGHT INTERNAL CAROTID ARTERY: Calcified and noncalcified plaque of the proximal right ICA. 2 cm long luminal narrowing with short segment (6 mm) long severe (78%) stenosis, 1.5 cm distal to the carotid bifurcation. RIGHT EXTERNAL CAROTID ARTERY: Atherosclerosis with mild stenosis of the right external carotid artery. No occlusion. RIGHT VERTEBRAL ARTERY: The right vertebral artery is dominant. No occlusion or significant stenosis. No dissection. LEFT COMMON CAROTID ARTERY: Unremarkable. No occlusion or significant stenosis. No dissection. LEFT INTERNAL CAROTID ARTERY: Calcified and noncalcified plaque in the proximal left ICA. 1.9 cm long luminal narrowing with stenosis measuring up to 60%, 9 mm beyond the carotid bifurcation. LEFT EXTERNAL CAROTID ARTERY: Atherosclerosis with mild stenosis of the left external carotid artery. No occlusion. LEFT VERTEBRAL ARTERY: Unremarkable. No occlusion or significant stenosis. No dissection. GREAT VESSELS OF AORTIC ARCH: Unremarkable. Normal anatomy, patent. NECK: BONES/JOINTS: Unremarkable. SOFT TISSUES: Unremarkable. LUNG APICES: Clear. CAROTID STENOSIS REFERENCE USING NASCET CRITERIA: % ICA stenosis = (1 - narrowest ICA diameter/diameter of distal cervical ICA) x 100. Mild - <50% stenosis. Moderate - 50-69% stenosis. Severe - 70-94% stenosis. Near occlusion - 95-99% stenosis. Occluded - 100% stenosis. CT/CTA Neck W/WO Contrast IMPRESSION: 1. Severe right ICA stenosis, 78%. 2. Moderate left ICA stenosis, 60%. Electronically Signed: Josué Rodriguez MD (Brooks) at 16:58 EST , Service support , Intake Visit Reasons: CAROTID STENOSIS Chief Complaint: Carotid Stenosis Customer Operations Representative Required: No Is patient in pain?: No Allergies Penicillins Allergy (Severe, Verified 11/12/20 12:40) Unknown Medications Pen needles #100 ea 11/08/18 [Rx Confirmed 11/12/20] flash glucose scanning reader See Rx Instructions .ROUTE .MEDSUPPLY #1 ea 02/10/20 [Rx Confirmed 11/12/20] flash glucose sensor See Rx Instructions .ROUTE .MEDSUPPLY #1 ea 02/10/20 [Rx Confirmed 11/12/20] blood-glucose meter See Rx Instructions .ROUTE .MEDSUPPLY #1 ea 02/21/20 [Rx Confirmed 11/12/20] rosuvastatin 20 mg tablet 20 mg PO DAILY #90 tab 05/25/20 [Rx Confirmed 11/12/20] FreeStyle Lite Strips See Dose Instructions .ROUTE .MEDSUPPLY #100 ea NS 06/17/20 [Rx Confirmed 11/12/20] lisinopril 10 mg-hydrochlorothiazide 12.5 mg tablet 1 tab PO BID #180 tab 07/15/20 [Rx Confirmed 11/12/20] pantoprazole 40 mg tablet,delayed release 40 mg PO QDAY #90 tab 09/27/20 [Rx Confirmed 11/12/20] meclizine 25 mg tablet 25 mg PO BID PRN #60 tab 09/30/20 [Rx Confirmed 11/12/20] metformin 850 mg tablet See Rx Instructions .ROUTE .COMPLEX #180 tab 10/22/20 [Rx Confirmed 11/12/20] insulin human U-100 NPH-regulr 70-30 mix 100 unit/mL subcutaneous susp See Rx Instructions SC QAM ml 10/28/20 [History Confirmed 11/12/20] aspirin 81 mg tablet,delayed release 81 mg PO DAILY #90 tab 11/09/20 [Rx Confirmed 11/12/20] [facility] Medical History Right hip pain (Chronic) Chronic kidney disease, stage III (moderate) (Chronic) Hyperlipidemia (Chronic) Type 2 diabetes mellitus (Chronic) Vision problems (Chronic) Skin cancer (Chronic) GERD (gastroesophageal reflux disease) (Chronic) High cholesterol (Chronic) Diabetes type 2, controlled (Chronic) Arthritis (Chronic) Seasonal allergies (Chronic) HTN (hypertension) (Chronic) Hypertension, essential (Acute) Diabetes mellitus type 1, controlled, without complications (Acute) Surgical History History of esophageal dilatation (Acute) History of esophagogastroduodenoscopy (EGD) (Acute) Family History (Updated 11/12/20 @ 13:12 by Kelsy Melendez) Mother Breast cancer Myocardial infarction Hypertension Diabetes Heart disease CAD (coronary artery disease) Father Myocardial infarction Social History (Updated 11/12/20 @ 14:[address] Hai Schmid MD) Smoking Status: Never smoker second hand exposure: No alcohol intake: current alcohol intake frequency: a few times a month Alcohol type: beer substance use type: does not use caffeine: Yes what type of physical activity do you participate in: aerobics, weight training frequency: 3-4 times per week HPI HPI HPI: REJI JUSTICE, is a 70 M who presents to the office today for surgical consultation regarding asymptomatic right extracranial carotid artery occlusive disease. The patient is referred by Dr. Severino Hylton and a written copy of my surgical consult and recommendations will be returned to her. The patient states that he was having problems with dizziness. He states that this led to some investigations which might of suggested some calcification in his neck. He was then was identified as having a carotid bruit. This then led to the carotid duplex imaging of November 09, 2020 as noted below. He is felt to have greater than 70% stenosis of the right internal carotid and 50 to 69% stenosis of the left internal carotid. He denies previous history of TIA or stroke. As is October 28, 2020 his BUN was 31 and creatinine 1.53 consistent with stage III chronic renal insufficiency. The patient's had some nonspecific lightheadedness 2 weeks or so ago. No vision loss. No focal motor or sensory loss. He was placed on meclizine with significant improvement. He is employed at the [employer] [address] [place] [address] Carotid Duplex Ultrasound 11/09/20 1048 MR#: [id number] Name: REJI JUSTICERep #:[id number] : 1950 70From: Hai Schmid MD Attending Dr: Dr. Severino Hylton, MDStatus: REG CLI Ordering Dr: Severino Hylton MDDate: 11/09/20 Location:CVSSex: Admitted: Reason For Study: carotid stenosis, dizziness Rt. Velocities/BP Lt. Velocities/BP Prox CCA 51.3/13.4 cm/sec. Prox CCA 86.3/22.5 cm/sec. Mid CCA 48.6/13.4 cm/sec. Mid CCA 92.5/23.7 cm/sec. Dist CCA 49.9/12.1 cm/sec. Dist CCA 87.6/22.5 cm/sec. Prox ICA 266.0/78.5 cm/sec. Prox ICA 144.8/37.1 cm/sec. Mid ICA 153.6/44.8 cm/sec. Mid ICA 113.8/35.3 cm/sec. Dist ICA 275.5/79.6 cm/sec. Dist ICA 68.3/19.3 cm/sec. Rt. ICA/CCA = 5.6. Lt. ICA/CCA = 1.6. Prox ECA 141.2/17.0 cm/sec. Prox ECA 171.8/22.6 cm/sec. Rt. Vert. 40.9/12.6 cm/sec. Lt. Vert. 26.4/6.4 cm/sec. Right Extracranial There is homogeneous, smooth atherosclerotic plaque noted in the right common carotid artery. There is heterogeneous, irregular atherosclerotic plaque noted in the right internal carotid artery. There is heterogeneous, irregular atherosclerotic plaque noted in the right external carotid artery. Antegrade flow is noted in the right vertebral artery. Left Extracranial There is homogeneous, smooth atherosclerotic plaque noted in the left common carotid artery. There is heterogeneous, irregular atherosclerotic plaque noted in the left internal carotid artery. There is heterogeneous, irregular atherosclerotic plaque noted in the left external carotid artery. Antegrade flow is noted in the left vertebral artery. Procedure Carotid Duplex [address]. This is a Carotid Duplex examination using B-mode, color flow and specral Doppler. The exam was diagnostic. Exam performed in department. Interpretation Summary Irregular calcific plaque with shadowing at the proximal right internal carotid artery with greater than 70% stenosis. <50% stenosis right external carotid Irregular calcific plaque with shadowing at the proximal left internal carotid artery with 50 to 69% stenosis. <50% stenosis left external carotid Patent and antegrade vertebrals bilaterally Ordering Physician: Severino Hylton Performed By: Monico Marroquin RVT 11/09/20 1209 Date Hai Schmid MD HPI HPI HPI: REJI JUSTICE, is a 70 M who presents to the office today for ROS General General: Yes fatigue; no weight change, appetite, colon cancer, breast cancer or weakness HEENT HEENT: No difficulty swallowing, eye injury, eye surgery, swollen glands or hoarseness Endo Endocrine: Yes diabetes mellitus; no thyroid disease, thyroid cancer, Hair loss, heat intolerance or cold intolerance Skin Skin: No rash or changing moles Musc Musculoskeletal: Yes arthritis; no back problems, rheumatoid arthritis, gout or joint pain Cardio Cardiovascular: Yes high blood pressure; no murmur, pacemaker, heart disease, atrial fibrillation, heart attack, heart stent, palpitations, shortness of breat with exertion or chest pain Psych Psychiatric: No depression, anxiety or hearing voices Resp Respiratory: No shortness of breath, No sleep apnea, No cough, No COPD, No asthma, No emphysema, No wheezing Gastro Gastrointestinal: No abdominal pain, No nausea or vomiting, No diarrhea, No constipation, No blood in stool, Yes acid reflux, No hemorrhoids, No ulcers, No gallbladder problem, No black,tarry stools Thai Hematologic: No blood thinners, No blood disorders, No bleeding, No anemia, No blood clots Neuro Neurologic: No system reviewed and no additional complaints, except as docu, No as per HPI, No abnormal walking, No abnormal hearing, No abnormal movements, No abnormal speech, No behavioral changes, No burning sensations, No confusion, No seizure-like activity, No unsteadiness, No dizziness, No localized weakness, No frequent falls, No headache(s), No lack of coordination, No loss of vision, No memory loss, No numbness, No other visual disturbances, No radiating pain, No restless legs, No sensory deficit, No fainting, No tingling, No tremor(s), No weakness, No other Exam Const General: cooperative, healthy appearing, comfortable, no acute distress Nutritional Appearance: overweight Orientation: alert, awake [facility] Head: normal to inspection Eyes General: appearance normal, both eyes and all related structures Chest Chest palpation & inspection: normal inspection of the chest Resp Effort & Inspection: normal respiratory effort Auscultation: clear to auscultation bilaterally Cardio Rate: regular rate Rhythm: regular rhythm Heart Sounds: no murmurs Other: Bilateral radials are 3+. Bilateral brachials 3+. Bilateral carotids 3+ with a 2/6 bruit on the right Bilateral femorals 2+. Bilateral popliteals 2+. Bilateral DP and PT 2+ GI Palpation: soft, no hepatosplenomegaly Auscultation: normal bowel sounds Other: Not pulsatile or expansile Musc Cervical Spine: normal cervical lordosis Skin General: no rashes or lesions noted Neuro Cognition: normal cognition Extrem General: no calf tenderness Psych Affect: normal affect Assessment & Plan Problems 1. Carotid stenosis, bilateral I65.23 Plan Bilateral carotid stenosis greater than 70% on the right and 50 to 69% on the left based upon carotid duplex imaging. The patient appears to be asymptomatic. He does have stage III chronic renal insufficiency. He has hypertension and hyperlipidemia and type 2 diabetes. He otherwise appears to be effectively managing his chronic comorbidities. His end diastolic velocity involving the right internal carotid artery is slightly elevated at 78 cm second peak systolic flow. The distal right internal carotid also was elevated at 275 cm second with end-diastolic velocity of 79. This represents both proximal and distal areas that seem to have increased velocity. With that in mind I recommend to the patient that we obtain a CTA of the carotids and then have him return to the office. He is aware that there are no guarantees of eliminating stroke risk. He is aware that we will try to navigate the least risky pathway. He is on statin medication rosuvastatin and 81 mg aspirin. We will hydrate him prior to his CTA carotids. I will then have him return to the office to discuss treatment options. I appreciate the opportunity of assisting with surgical care Copy: Dr.Efewongbe Warner Schmid M.D., F.A.C.S. HPI HPI HPI: REJI JUSTICE, is a 70 M who presents to the office today for ROS General General: Yes fatigue; no weight change, appetite, colon cancer, breast cancer or weakness HEENT HEENT: No difficulty swallowing, eye injury, eye surgery, swollen glands or hoarseness Endo Endocrine: Yes diabetes mellitus; no thyroid disease, thyroid cancer, Hair loss, heat intolerance or cold intolerance Skin Skin: No rash or changing moles Musc Musculoskeletal: Yes arthritis; no back problems, rheumatoid arthritis, gout or joint pain Cardio Cardiovascular: Yes high blood pressure; no murmur, pacemaker, heart disease, atrial fibrillation, heart attack, heart stent, palpitations, shortness of breat with exertion or chest pain Psych Psychiatric: No depression, anxiety or hearing voices Resp Respiratory: No shortness of breath, No sleep apnea, No cough, No COPD, No asthma, No emphysema, No wheezing Gastro Gastrointestinal: No abdominal pain, No nausea or vomiting, No diarrhea, No constipation, No blood in stool, Yes acid reflux, No hemorrhoids, No ulcers, No gallbladder problem, No black,tarry stools Thai Hematologic: No blood thinners, No blood disorders, No bleeding, No anemia, No b lood clots Neuro Neurologic: No system reviewed and no additional complaints, except as docu, No as per HPI, No abnormal walking, No abnormal hearing, No abnormal movements, No abnormal speech, No behavioral changes, No burning sensations, No confusion, No seizure-like activity, No unsteadiness, No dizziness, No localized weakness, No frequent falls, No headache(s), No lack of coordination, No loss of vision, No memory loss, No numbness, No other visual disturbances, No radiating pain, No restless legs, No sensory deficit, No fainting, No tingling, No tremor(s), No weakness, No other Exam Cardio Heart Sounds: no murmurs Assessment & Plan Problems 1. Bilateral carotid artery stenosis I65.23 Plan Today was a 30-minute [id number] consultative appointment. I described to the patient and his the results of the CTA of the carotid. There is a stenosis at the very origin of the right internal carotid then an area of stenosis approximately 2 cm with in a tighter area stenosis in the mid internal carotid. That area of stenosis is likely at least 80%. That would correlate well with the carotid duplex findings. I offered him consideration for surgical intervention. We discussed carotid endarterectomy and we again did comment upon carotid artery stenting. The patient states that he would prefer the surgery at Over a stenting procedure. In detail I discussed to him about placing an arterial line then general anesthesia than the right neck incision with carotid enterectomy and bovine patch angioplasty. He is aware that I will attempt carotid shunting. No guarantees of success have been offered. He is aware of multiple risks including stroke. He is aware that I consider based upon the duplex imaging and CTA imaging and symptom complex of lightheadedness that this is a symptomatic lesion. I believe that his risk to benefit ratio is better with intervention then ongoing medical treatment alone. He will be maintained on his routine medications including his statin medication and his aspirin therapy. The patient and his have had an opportunity to ask and have questions answered. We will schedule and expedite his care. Copy: Dr. Severino Schmid M.D., F.A.C.S. Coding Level of Care Code Off vis,est,level 3 Diagnoses Bilateral carotid artery stenosis I65.23 I have re-examined the patient. There are no clinical changes since date of lynn jose.
--- NOTE | 2020-12-01 05:51 | PCM.DC.GS ---
Discharge Diet: Light diet - advance as tolerated - if you have questions about your diet instructions, please talk to you doctor. Additional Instructions: Please refer to preprinted discharge instructions per [facility] Allergies/Adverse Reactions: Allergies Penicillins Allergy (Severe, Verified 11/24/20 08:49) Unknown Medications to take at Discharge Pen needles #100 ea 11/08/18 flash glucose scanning reader See Rx Instructions .ROUTE .MEDSUPPLY #1 ea 02/10/20 flash glucose sensor See Rx Instructions .ROUTE .MEDSUPPLY #1 ea 02/10/20 blood-glucose meter See Rx Instructions .ROUTE .MEDSUPPLY #1 ea 02/21/20 FreeStyle Lite Strips See Dose Instructions .ROUTE .MEDSUPPLY #100 ea NS 06/17/20 pantoprazole 40 mg tablet,delayed release 40 mg PO QDAY #90 tab 09/27/20 metformin 850 mg tablet See Rx Instructions .ROUTE .COMPLEX #180 tab 10/22/20 insulin human U-100 NPH-regulr 70-30 mix 100 unit/mL subcutaneous susp See Rx Instructions SC QAM ml 10/28/20 Aspirin [Low Dose Aspirin EC] 81 mg PO DAILY 11/24/20 Lisinopril/Hydrochlorothiazide [Lisinopril-Hctz 10-12.5 mg Tab] 1 tab PO BID 11/24/20 Rosuvastatin Calcium 20 mg PO DAILY 11/24/20 Orders to be completed after discharge: 12 Lead EKG [[facility]] Location: None Selected Primary Care Physician: Severino Hylton MD [Primary Care Provider] - Test Results: Test results from this visit will be discussed in further detail at your follow-up appointment, if applicable. Please Follow Up With: Hai Schmid MD - [phone] When: Call to make an appointment to be seen in about 10 days.
--- NOTE | 2020-12-01 06:20 | OP.PCM_ITS ---
Problem List (1) Carotid stenosis, bilateral Status: Acute (2) Dizziness, nonspecific Status: Acute Report of Operation Date of Procedure: 12/01/20 Pre-Operative Diagnosis: Symptomatic critical stenosis right extracranial in ternal carotid artery Post-Operative Diagnosis: Same Surgery/Procedure Performed:: Right radial arterial line placement. Right carotid endarterectomy with bovine patch angioplasty Description of Surgical Findings:: Timeout and informed consent was obtained. 70-year-old gentleman at the bedside had William test performed demonstrating adequate ulnar flow. The right wrist was gently extended prepped with Betadine. Under ultrasound guidance 1% lidocaine was instilled as a local anesthetic. A total of 2 cc was used. Ultrasound was used to identify the right radial artery. Actually 3 different access attempts were required until I could get Seldinger wire to advance a 20-gauge Angiocath. It was secured to skin with 3-0 silk. OpSite dressing followed by Anna wrap applied. Hand was viable no apparent complications she tolerated the procedure well good waveform was obtained. He subsequently was taken the operating for definitive right carotid endarterectomy. Timeout informed consent was obtained. Patient underwent general endotracheal intubation esthesia. Clindamycin 900 mg were given intravenously pre operatively. The right neck was sterilely prepped and draped. An oblique incision was made along the anterior border of the sternocleidomastoid. Sharp dissection carried down through the subcutaneous tissue. The sternocleidomastoid was reflected laterally. Dissection was formed directly down upon the common carotid carotid bulb and the dissection was performed cephalad. The internal and external carotids nicely identified.. A Loya tie of Dacron tape was placed around the common carotid proximal to the bulb. Vessel loop was placed around the external carotid a Loya tie of 3-0 Vicryl a round the superior thyroid artery. A Leslie tourniquet and Dacron tape around the internal carotid. It is of note that the hypoglossal nerve was low-lying crossing the internal carotid still at the site of disease. The patient received 10,000 units of heparin. Based upon ACT measurements she received another 1000 units of heparin during the case. A Herron clamp was placed on the internal carotid peripheral vessel clamp on the common carotid and external carotid. An 11 blade was used to make an arteriotomy extended with Loya scissors. It is of note there is highly extensive plaque involving the proximal internal carotid and extended over a distance of at least 3 to 3-1/2 cm. Very long area of stenosis. There was excellent backflow from the internal carotid. Because of the very high position that the endarterectomy had to be performed I elected not to place the shunt. The plaque was then removed carefully at the layer the external elastic lamina using a Drift. The plaque was sharply transected proximally then feathered at the internal carotid and an inversion enterectomy was formed of the external carotid. Further debris was carefully removed. 2 tacking sutures of 7-0 Prolene was placed at the internal carotid to securely fix the intima. A 0.8 x 8 cm bovine pericardium patch was shaped to form and then a patch angioplasty performed with a running 6-0 Prolene. A nerve hook had to be used to elevate the hypoglossal nerve to allow for the cephalad suturing. Completion the vessel was copiously irrigated. There was good retrograde flow from the internal carotid external carotid good antegrade flow from the common carotid. A patch angioplasty was completed. Initial flow was instituted from the external carotid common carotid from the internal carotid. Clamp time was 49 minutes. The patient was kept relatively hypertensive throughout that time. At the completion I briefly placed some snow to assist with hemostasis. That was then removed. The patient received 20 mg of protamine as reversal agent. The vessel appeared to have a good positional lie. Hemostasis was intact. The wound was closed in layers with a subcutaneous fascial layer with a running 3-0 Vicryl. The skin edges proximal antiseptic or 5-0 Vicryl. Steri-Strips applied and skin prep. The periincisional areas anesthetized with 20 cc of 0.5% Marcaine. Telfa and tape dressings applied. Sponge and instrument and needle counts were reported the surgeon be correct. Blood loss was 100 cc. He tolerated procedure well was taken to the recovery room in satisfactory vision without apparent complication. Specimen plaque. Drains none. Blood loss 100 cc. Hai Schmid M.D., F.A.C.S. Type of Anesthesia:: General Anesthesiologist: Jonathan Nam
[2020-12-01] MEDS: hydrALAZINE 20 MG/ML Vial 5 MG IV (06:36)
[2020-12-01] MEDS: Lactated Ringers 1,000 ML 100 ML IV (06:41)
[2020-12-01 06:55] LABS: Bedside Glucose 191 mg/dL (70-110)
--- NOTE | 2020-12-01 07:30 | CART_PTH ---
PATIENT: REJI JUSTICE LOC: MS3 U#:[id number] AGE/SX: 70/M [place] [facility] [place]01[place]: Dr. Hai Schmid MD : 1950 BED: 1 DIS: 12/02/2020 SPEC #: [id number] RECD: 12/01/20 11:33 STATUS: CODY REQ #: [id number] JITENDRA: 12/01/20 07:[address]: Hai Schmid DEPT: SURGICAL PATHOLOGY RECD BY: Shanell Kuhn ENTERED: 12/01/20 13:23 SP TYPE: CAROLA MANSFIELD DR: Dr. Severino Hylton MD Tissues: Fibrous tissue Procedures: Decalcification bone/plaque Surgery Specimen Level III HEADER OPERATION: Carotid endarterectomy with patch angioplasty PRE-OP DIAGNOSIS: Carotid stenosis, bilateral TISSUE SUBMITTED: Right carotid plaque MICROSCOPIC DIAGNOSIS Right carotid plaque, endarterectomy: Calcified atheromatous plaque consistent with severe stenosis. AM:monica 12/06/2020 MICROSCOPIC DESCRIPTION Slides are reviewed. GROSS DESCRIPTION Received in fixative is one container labeled with the patient's name and designated right carotid plaque. The specimen consists of a previously opened tubular piece of martinez-yellow, indurated tissue measuring 3.5 cm in length and 0.7 cm in diameter. The specimen cuts with gritty sensation. The entire specimen is submitted in one cassette after decalcification. / SJ:monica 12/01/20 TC:5 CPT: 73851, 60854
[2020-12-01] MEDS: Bupivacaine Mpf 0.5% 30 ML VIAL (07:47)
[2020-12-01] MEDS: Heparin Injection (Vial) 5,000 UNIT/ML VIAL 5000 UNIT (08:03)
[2020-12-01] MEDS: Lactated Ringers 1,000 ML 30 ML IV (08:46)
[2020-12-01] MEDS: Nitro/D5w 25MG/250ML Bottle 25 MG (09:20)
[2020-12-01] MEDS: Sugammadex Sodium 200 MG/2 ML VIAL IV (09:24)
[2020-12-01 10:35] LABS: Bedside Glucose 223 mg/dL (70-110)
[2020-12-01 10:49] LABS: ACT Activated Clotting Time 114 sec (74-137)
[2020-12-01 10:50] LABS: ACT Activated Clotting Time 252 sec (74-137)
[2020-12-01 10:51] LABS: ACT Activated Clotting Time 136 sec (74-137)
[2020-12-01] MEDS: HYDROcodone Bitartrate/Apap 5/325 Tablet PO ×2 (15:18→21:29)
[2020-12-01] MEDS: metFORMIN HCl 850 MG Tablet PO (15:22)
[2020-12-01] MEDS: Aspirin E.C. 81 MG Tablet PO (15:22)
[2020-12-01] MEDS: Insulin Human 75/25 Kwickpen 30 UNIT SC (15:25)
--- NOTE | 2020-12-01 15:57 | NURSING ---
RN CM Assessment Introduced role of RN CM to patient tata Zapata at bedside as patient is currently resting d/t a headache.? Patient is alert, oriented and able?to participate in RN CM Assessment. ?Care providers, pharmacy, and demographics verified. Admit Dx: Carotid Endarterectomy Re-Admit: No Barriers/Issues: None. 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 PCP: Severino Hylton Specialists: None Preferred Pharmacy: [facility] Insurance: [facility] A/B, AARP Rx Benefit:?Yes, Mcr part D LNOK: Jodi Ryan LW/HPOA: None, provided advanced directive paperwork with psychiatric social worker rack card, aware can return as an outpatient to complete at a later time. Living Arrangements:?Lives with in a H, 2 steps to enter through the garage. ADL?s: independent with ambulation and ADLs Transportation: Both patient and drive. will transport upon hospital DC. DME: [employer] HHC: None SNF: None Goal: Home and does not think will have any needs. Denies any issues, questions, or concerns with DC planning at this time. Aware RNCM will remain available for any emerging needs. DC PLAN: Home with no anticipated needs identified at this time. SOPHY Rowan
[2020-12-01] MEDS: Lisinopril 10 MG Tablet PO ×2 (16:13→21:29)
[2020-12-01] MEDS: hydroCHLOROthiazide 12.5mg 12.5 MG PO ×2 (16:13→21:29)
[2020-12-01] MEDS: Atorvastatin Calcium 40 MG Tablet PO (21:29)
[2020-12-02 00:38] VITALS: BP 121/76; PULSE 78; RESP 16; TEMP 36.8; O2SAT 97
--- NOTE | 2020-12-02 06:01 | PCM.CAROT ---
General Carotid Note - Subjective Post-Op Day #: 1 Subjective: Patient had a significant headache yesterday afternoon. Not clear if it was from not eating. He has no focal motor or sensory loss. Fortunately the headache is cleared. He states that he slept well last night. He has no specific concerns or complaints currently. He is feeling well - Objective Vital Signs Temp Pulse Resp BP Pulse Ox 98.3 F 78 16 121/76 H 97 12/02/20 00:38 12/02/20 00:38 12/02/20 00:38 12/02/20 00:38 12/02/20 00:38 Microbiology Past 72 Hours 11/29/20 10:20 SARS-CoV-2 Antigen (Rapid) - Final Interface Orders Laboratory Tests Past 24 Hrs 12/01/20 12/01/20 12/01/20 06:30 08:33 09:20 Activated Clotting Time 114 252 H 136 Neck: Supple, - - Neck incision is very clean soft and supple. Neurological: - - Patient is grossly intact. - Assessment/Plan Very pleased with the patient progress. Vital signs are currently very stable. Plan discharge today. Hai Schmid M.D., F.A.C.S.
[2020-12-02] MEDS: Acetaminophen 325 MG Tablet PO (06:35)
[2020-12-02 06:39] VITALS: BP 153/88; PULSE 68; RESP 16; TEMP 36.6; O2SAT 99
== END 2020-12-02 09:31 | disposition home or self-care (01) | DRG 39 ==
LOC: ACINP 05:27 → MS3 10:13
PROVIDERS: Anesthesiology; Admitting Provider Surgery; PCP Internal Medicine; Referring Provider Surgery; Visit Provider Surgery
PROC: 03HY32Z Insertion of Monitoring Device into Upper Artery, Percutaneous Approach (ICD-10-PCS; CPT 35301; principal; 2020-12-01 07:10)
DX: I65.23 Occlusion and stenosis of bilateral carotid arteries (principal); R42 Dizziness and giddiness; I12.9 Hypertensive chronic kidney disease with stage 1 through stage 4 chronic kidney disease, or unspecified chronic kidney disease; E11.22 Type 2 diabetes mellitus with diabetic chronic kidney disease; N18.32 Chronic kidney disease, stage 3b; E78.5 Hyperlipidemia, unspecified; K21.9 Gastro-esophageal reflux disease without esophagitis; M19.90 Unspecified osteoarthritis, unspecified site; R51.9 Headache, unspecified; Z20.822 Contact with and (suspected) exposure to COVID-19; Z79.82 Long term (current) use of aspirin; Z79.4 Long term (current) use of insulin; Z79.899 Other long term (current) drug therapy
CPT/HCPCS: 36415; 80048; 82962; 83036; 85025; 85347; 87426; 88304; 88311; 93005; 99251; C9803; J7040; J7120; A4216; G0463; J2405

== ENCOUNTER → 2021-01-03 11:03 | Outpatient (CLI) | payer MEDICARE, OTHER, SELFPAY ==
[2021-01-03 12:38] LABS: Anion Gap 4 (5-15); BUN 30 mg/dL (7-18); BUN/Creat Ratio 18.5 RATIO (10-20); Calcium,Total 9.1 mg/dL (8.5-10.1); Chloride 108 mmol/L (98-107); Creatinine, Serum 1.62 mg/dL (0.70-1.30); EST Glomerular Filtration Rate 45 mL/min (>60); Est Glom Filt Rate - Afr Amer 55 mL/min (>60); Glucose 84 mg/dL (74-106); Potassium 4.5 mmol/L (3.5-5.1); Sodium Level 140 mmol/L (136-145)
== END ==
PROVIDERS: PCP Internal Medicine; Referring Provider Internal Medicine; Visit Provider Internal Medicine
DX: E11.9 Type 2 diabetes mellitus without complications (principal); I10 Essential (primary) hypertension
CPT/HCPCS: 36415; 80048

== ENCOUNTER → 2021-01-04 10:18 | Outpatient (CLI) | payer MEDICARE, OTHER, SELFPAY ==
[2020-12-01 06:28] VITALS: BMI 30.9
--- NOTE | 2021-01-04 10:21 | CDUL_ITS ---
Reason For Study: carotid stenosis Rt. Velocities/BP Prox CCA 40.8/16.0 cm/sec. Mid CCA 42.1/17.3 cm/sec. Dist CCA 61.7/17.3 cm/sec. Prox ICA 46.0/12.1 cm/sec. Mid ICA 39.5/9.5 cm/sec. Dist ICA 79.9/25.2 cm/sec. Rt. ICA/CCA = 1.9. Prox ECA 77.3/21.2 cm/sec. Rt. Vert. 55.2/20.0 cm/sec. Right Extracranial There is homogeneous, smooth atherosclerotic plaque noted in the right common carotid artery. There is intimal thickening but no significant atherosclerotic plaque noted in the right internal carotid artery. There is heterogeneous, irregular atherosclerotic plaque noted in the right external carotid artery. Unable to obtain flow in the proximal ECA. Flow is noted in the distal ECA. Antegrade flow is noted in the right vertebral artery. Procedure Carotid Duplex 40187. This is a Carotid Duplex examination using B-mode, color flow and specral Doppler. The exam was diagnostic. Exam performed in department. VL/Carotid Unilateral Interpretation Summary Post-operative changes right carotid bulb and proximal internal carotid with <5 0% stenosis No flow proximal right external carotid Patent antegrade right vertebral Left carotid not examined Improved flow right internal carotid and new no flow right external carotid fro m the previous examination of 11/09/20 Ordering Physician: Atiya Terrazas Referring Physician: Hai Schmid Performed By: Monico Marroquin RVT
== END ==
PROVIDERS: PCP Internal Medicine; Referring Provider Surgery; Visit Provider Surgery
DX: I65.21 Occlusion and stenosis of right carotid artery (principal); R42 Dizziness and giddiness
CPT/HCPCS: 93882

== ENCOUNTER 2021-01-21 21:12 | Inpatient (IN) | payer MEDICARE, OTHER, SELFPAY ==
[2021-01-21 21:13] VITALS: BP 94/53; PULSE 103; RESP 16; TEMP 36.2; O2SAT 98; BMI 29.7
--- NOTE | 2021-01-21 21:28 | ED.VIS.GEN ---
History of Present Illness Chief Complaint: Nausea/Vomiting/Diarrhea Informant: Patient, Family Narrative: 70-year-old male presents with vomiting and diarrhea. He reports that about 3 weeks ago he started Trulicity. He states that last week he took it on and again had vomiting and diarrhea a days later. He took his injection yesterday and woke today with vomiting diarrhea. He states he feels very dehydrated and notes he has not been able to keep anything down. He called his doctor who called him in [facility] at 7:00 but it was not effective for him. He describes the stool is brown and runny. No blood in the vomit. No syncope. He denies any bad food exposures fevers. - Past Medical History (1) Carotid stenosis, bilateral Status: Chronic (2) Diabetes mellitus type 1, controlled, without complications Status: Chronic Comment: Reports he may be eating out too much and not watching his portion control. He continues to make adjustments in his lantus. (3) History of right-sided carotid endarterectomy Status: Chronic Comment: 12/01/20 (4) Hypertension, essential Status: Chronic Comment: Reports taking medication as directed. His BP wassl elevated but reports busy day. Will have patient recheck at home as well as in this office (5) Arthritis Status: Chronic (6) Chronic kidney disease, stage III (moderate) Status: Chronic (7) Diabetes type 2, controlled Status: Chronic Comment: Dx : 2007 Last exacerbation : dka : never hypoglycemic episode : never er visit : never (8) GERD (gastroesophageal reflux disease) Status: Chronic (9) HTN (hypertension) Status: Chronic (10) High cholesterol Status: Chronic (11) Seasonal allergies Status: Chronic (12) Type 2 diabetes mellitus Status: Chronic Past Medical History - Allergies and Home Meds Allergies/Adverse Reactions: Allergies Penicillins Allergy (Severe, Verified 12/09/20 09:53) Rash Primary Care Physician: Severino Hylton MD [Primary Care Provider] - Surgical History: noncontributory Lives: Spouse/ Significant Other Smoking Status: Never smoker Drugs: None Review of Systems General: Denies: Chills, Fever, Sweats Eyes: Denies: Visual changes - bilaterally, Diplopia ENT: Denies: Rhinorrhea, Sore throat Cardiovascular: Denies: Chest pain, Palpitations Respiratory: Denies: Dyspnea, Cough, Dyspnea on exertion Gastrointestinal: Reports: Nausea, Vomiting, Diarrhea. Denies: Abdominal pain, Melena, Hematochezia Genitourinary: Denies: Dysuria, Hematuria, Frequency Musculoskeletal: Denies: Back pain, Extremity Pain Skin: Denies: Rash, Wounds Neurological: Denies: Headache, Weakness, Numbness Physical Exam Vital Signs/Narrative: Vital Signs Temp Pulse Resp BP Pulse Ox 01/21/21 21:13 97.1 F L 103 H 16 94/53 L 98 Inital Vital Signs reviewed: Yes General: Well nourished, Well developed, No Acute Distress Head: Normocephalic, Atraumatic Eyes: Perrl, EOMI ENT: No rhinorrhea, Dry mucous membranes Neck: Supple, Nontender Cardiovascular: Regular rate, No murmurs, Tachycardia Respiratory: No distress, CTA bilaterally, Chest nontender Abdomen: Soft, Nontender, Nondistended, Normal bowel sounds Back: Nontender, Normal Inspection Extremities: Nontender, No edema Skin: Normal color, No rash Neurological: Alert, Oriented x3, Cranial nerves II-XII grossly intact, Normal Strength, Normal Sensation Psychological: Normal affect, Normal Mood Diagnostic/Tx/Re-eval Laboratory Last Values WBC 11.0 K/mm3 (4.4-11.0) 01/21/21 21:42 RBC 5.70 M/mm3 (4.6-6.2) 01/21/21 21:42 Hgb 15.7 g/dL (13.0-16.5) 01/21/21 21:42 Hct 47.8 % (40-54) 01/21/21 21:42 MCV 83.9 fL (80-94) 01/21/21 21:42 MCH 27.5 pg (27.0-32.0) 01/21/21 21:42 MCHC 32.8 g/dL (32-36) 01/21/21 21:42 RDW Std Deviation 39.6 fl (35.1-43.9) 01/21/21 21:42 RDW Coeff of Alyssia 12.9 % (11.6-14.6) 01/21/21 21:42 Plt Count 419 K/mm3 (150-450) 01/21/21 21:42 MPV 8.6 fl (6.2-12.0) 01/21/21 21:42 Immature Gran % (Auto) 0.200 % (0.0-0.9) 01/21/21 21:42 Neut % (Auto) 78.4 % (47-70) H 01/21/21 21:42 Lymph % (Auto) 12.1 % (19-41) L 01/21/21 21:42 [place] % (Auto) 7.4 % (0-10) 01/21/21 21:42 Eos % (Auto) 1.5 % (0-5) 01/21/21 21:42 Baso % (Auto) 0.4 % (0-1) 01/21/21 21:42 Absolute Neuts (auto) 8.6 X10^3/uL (2.0-7.7) H 01/21/21 21:42 Absolute Lymphs (auto) 1.33 X10^3/uL (0.83-4.51) 01/21/21 21:42 Nucleated RBC % 0 % (0-5) 01/21/21 21:42 Sodium 136 mmol/L (136-145) 01/21/21 21:42 Potassium 3.8 mmol/L (3.5-5.1) 01/21/21 21:42 Chloride 103 mmol/L (98-107) 01/21/21 21:42 Carbon Dioxide 19.0 mmol/L (21.0-32.0) L 01/21/21 21:42 Anion Gap 14 (5-15) 01/21/21 21:42 BUN 33 mg/dL (7-18) H 01/21/21 21:42 Creatinine 2.25 mg/dL (0.70-1.30) H 01/21/21 21:42 Estim Creat Clear Calc 28.97 ml/min 01/21/21 21:42 Est GFR (MDRD) Af Amer 37 mL/min (>60) L 01/21/21 21:42 Est GFR (MDRD) Non-Af 31 mL/min (>60) L 01/21/21 21:42 BUN/Creatinine Ratio 14.7 RATIO (10-20) 01/21/21 21:42 Glucose 291 mg/dL (74-106) H 01/21/21 21:42 Calcium 9.8 mg/dL (8.5-10.1) 01/21/21 21:42 Total Bilirubin 0.70 mg/dL (0.20-1.00) 01/21/21 21:42 AST 11 U/L (15-37) L 01/21/21 21:42 ALT 28 U/L (16-61) 01/21/21 21:42 Alkaline Phosphatase 76 U/L (45-117) 01/21/21 21:42 Total Protein 8.5 g/dL (6.4-8.2) H 01/21/21 21:42 Albumin 3.7 g/dL (3.2-5.0) 01/21/21 21:42 Globulin 4.8 g/dL (2.2-4.2) H 01/21/21 21:42 Albumin/Globulin Ratio 0.8 RATIO (0.9-2.4) L 01/21/21 21:42 Lipase 134 U/L (73-393) 01/21/21 21:42 - Medical Decision Making The patient received 2 L of IV fluids and Zofran. He has been able to tolerate some sips of fluids. He does have evidence of worsening creatinine tonight. His blood pressure and his heart rate are better. Initially had systolic readings of 94 now up to 117. Patient states he would feel better with continued IV fluids tonight and recheck of his creatinine. His seconds this. I will speak with our hospitalist ED Disposition - Plan for ED Patient: Disposition: Acute Care Hospital [facility] Diagnosis: Vomiting and diarrhea, Dehydration, Medication side effect, Acute renal insufficiency Referrals: Severino Hylton MD [Primary Care Provider] -
[2021-01-21] MEDS: 0.9% Normal Saline 1,000 ML 1000 ML IV ×2 (21:40→22:48)
[2021-01-21] MEDS: Ondansetron 4 MG/2 ML Vial IV (21:40)
[2021-01-21 21:47] LABS: Absolute Lymphocyte Count 1.33 X10^3/uL (0.83-4.51); Absolute Neutrophil Count 8.6 X10^3/uL (2.0-7.7); Basophil# 0.04 X10^3/uL; Basophil% 0.4 % (0-1); Eosinophil# 0.17 X10^3/uL; Eosinophils% 1.5 % (0-5); Hematocrit 47.8 % (40-54); Hemoglobin 15.7 g/dL (13.0-16.5); Lymphocyte # 1.33 X10^3/ul (0.83-4.51); Lymphocyte % 12.1 % (19-41); Mean Corp Hgb Conc 32.8 g/dL (32-36); Mean Corpuscular Hgb 27.5 pg (27.0-32.0); Mean Corpuscular Volume 83.9 fL (80-94); Mean Platelet Vol. 8.6 fl (6.2-12.0); Monocyte# 0.81 X10^3/uL; Monocyte% 7.4 % (0-10); NRBC Flagged by Analyzer 0 % (0-5); Neutrophil # 8.64 X10^3/uL (2.7-7.7); Neutrophil % 78.4 % (47-70); Platelet Count 419 K/mm3 (150-450); RBC Distribution Width CV 12.9 % (11.6-14.6); RBC Distribution Width SD 39.6 fl (35.1-43.9)
[2021-01-21 22:04] LABS: ALB/GLOB Ratio 0.8 RATIO (0.9-2.4); AST(SGOT) 11 U/L (15-37); Alanine Aminotransfer ALT/SGPT 28 U/L (16-61); Albumin, Serum 3.7 g/dL (3.2-5.0); Alkaline Phosphatase 76 U/L (45-117); Anion Gap 14 (5-15); BUN 33 mg/dL (7-18); BUN/Creat Ratio 14.7 RATIO (10-20); Calcium,Total 9.8 mg/dL (8.5-10.1); Chloride 103 mmol/L (98-107); Creatinine, Serum 2.25 mg/dL (0.70-1.30); EST Glomerular Filtration Rate 31 mL/min (>60); Est Glom Filt Rate - Afr Amer 37 mL/min (>60); Estimated Creatinine Clearance 28.97 ml/min; Globulin 4.8 g/dL (2.2-4.2); Glucose 291 mg/dL (74-106); Lipase 134 U/L (73-393); Potassium 3.8 mmol/L (3.5-5.1); Protein, Total 8.5 g/dL (6.4-8.2); Sodium Level 136 mmol/L (136-145)
[2021-01-21 22:47] VITALS: BP 117/77; PULSE 90; RESP 16; O2SAT 98
[2021-01-21 23:10] VITALS: BP 117/71; PULSE 88
--- NOTE | 2021-01-21 23:46 | HP.PCM_ITS ---
Problem List (1) Vomiting and diarrhea Status: Acute (2) Acute kidney injury superimposed on CKD Status: Acute (3) History of right-sided carotid endarterectomy Status: Chronic Comment: 12/01/20 (4) Carotid stenosis, bilateral Status: Chronic (5) GERD (gastroesophageal reflux disease) Status: Chronic Qualifiers: Esophagitis presence: esophagitis presence not specified Qualified Code(s): K21.9 - Gastro-esophageal reflux disease without esophagitis (6) High cholesterol Status: Chronic (7) Diabetes type 2, controlled Status: Chronic Qualifiers: Diabetes mellitus assisted insulin use: with assisted use Diabetes mellitus complication status: with unspecified complications Qualified Code(s): E11.8 - Type 2 diabetes mellitus with unspecified complications; Z79.4 - 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 Comment: Dx : 2007 Last exacerbation : dka : never hypoglycemic episode : never er visit : never (8) Arthritis Status: Chronic (9) Seasonal allergies Status: Chronic Qualifiers: Allergic rhinitis trigger: unspecified Qualified Code(s): J30.2 - Other seasonal allergic rhinitis (10) HTN (hypertension) Status: Chronic Qualifiers: Hypertension type: essential hypertension Qualified Code(s): I10 - Essential (primary) hypertension History of Present Illness Date of Admission: 01/21/21 Chief Complaint: N/V/D after starting Trulicity The patient is a 70 y/o M w/ PMHx: HTN, HLD, GERD, CKD stage III, Carotid disease s/p R CEA, Allergic rhinitis, Diabetes mellitus type II who presents to the [facility] ED on 01/21/21 with recent initiation Trulicity ~ 2 weeks prior and within 24 hours of usage of the medication he has onset 24-38 hours of episodes of nausea, emesis and diarrhea which again recurred this week prompting evaluation given fatigue, malaise, inability to appropriately maintain hydration. He notes >5 episodes of emesis and > 10 bouts of diarrhea through the day with mild abdominal cramping prior to each diarrheal episode. He denies any recent fever or chills or any recent abx therapy. Work-up in the ED included T 97.1, heart rate initially 103 with improvement 88, BP initially 94/53 with improvement to 117/71, respiratory rate 16, 98% on room air, CBC with WBC 11, hemoglobin 15.7, platelet 419 with left shift, CMP with carbon dioxide 19, BUN/creatinine 33/2.25, glucose 291, not marked appearing hepatic profile, lipase 134. In the ED patient ministered IV fluid normal saline. Past Medical History Past Medical History (Chronic Problems): Chronic Problems (Last Reviewed 12/09/20 @ 09:53 by Kelsy Melendez) History of right-sided carotid endarterectomy (Chronic) 12/01/20 Carotid stenosis, bilateral (Chronic) Right hip pain (Chronic) Chronic kidney disease, stage III (moderate) (Chronic) Hyperlipidemia (Chronic) Type 2 diabetes mellitus (Chronic) Vision problems (Chronic) Skin cancer (Chronic) GERD (gastroesophageal reflux disease) (Chronic) High cholesterol (Chronic) Diabetes type 2, controlled (Chronic) Dx : 2007 Last exacerbation : dka : never hypoglycemic episode : never er visit : never Arthritis (Chronic) Seasonal allergies (Chronic) HTN (hypertension) (Chronic) Hypertension, essential (Chronic) Reports taking medication as directed. His BP wassl elevated but reports busy day. Will have patient recheck at home as well as in this office Diabetes mellitus type 1, controlled, without complications (Chronic) Reports he may be eating out too much and not watching his portion control. He continues to make adjustments in his lantus. Medical History: Medical History (Last Reviewed 12/09/20 @ 09:53 by Kelsy Melendez) Carotid stenosis, bilateral (Chronic) I65.23 Right hip pain (Chronic) M25.551 Chronic kidney disease, stage III (moderate) (Chronic) N18.3 Hyperlipidemia (Chronic) E78.5 Type 2 diabetes mellitus (Chronic) E11.9 Vision problems (Chronic) H54.7 Skin cancer (Chronic) C44.90 GERD (gastroesophageal reflux disease) (Chronic) K21.9 High cholesterol (Chronic) E78.00 Diabetes type 2, controlled (Chronic) E11.9 Dx : 2007 Last exacerbation : dka : never hypoglycemic episode : never er visit : never Arthritis (Chronic) M19.90 Seasonal allergies (Chronic) J30.2 HTN (hypertension) (Chronic) I10 Hypertension, essential (Chronic) I10 Reports taking medication as directed. His BP wassl elevated but reports busy day. Will have patient recheck at home as well as in this office Diabetes mellitus type 1, controlled, without complications (Chronic) E10.9 Reports he may be eating out too much and not watching his portion control. He continues to make adjustments in his lantus. Allergies Penicillins Allergy (Severe, Verified 12/09/20 09:53) Rash Home Medications: Ambulatory Orders Medication Instructions Recorded Aspirin [Low Dose Aspirin EC] 81 mg PO DAILY 11/24/20 Lisinopril/Hydrochlorothiazide 1 tab PO BID 11/24/20 [Lisinopril-Hctz 10-12.5 mg Tab] Rosuvastatin Calcium 20 mg PO DAILY 11/24/20 Blood Sugar Diagnostic [FreeStyle 1 % .ROUTE .MEDSUPPLY 12/01/20 Lite Strips] Blood-Glucose Meter [Freestyle See Rx Instructions .ROUTE 12/01/20 System] .[employer]SU[employer]LY Flash Glucose Scanning [place] See Rx Instructions .ROUTE 12/01/20 [FreeStyle Tana 14 Day [place]] .MEDSUPPLY Flash Glucose Sensor [FreeStyle See Rx Instructions .ROUTE 12/01/20 Tana 14 Day Sensor] .MEDSUPPLY Pantoprazole Sodium 40 mg PO QDAY 12/01/20 Pen needles 0 % .ROUTE .MEDSUPPLY 12/01/20 dulaglutide 1.5 mg/0.5 mL 1.5 mg SC QWEEK 90 Days #6.5 ml 01/03/21 subcutaneous pen injector insulin human U-100 NPH-regulr See Rx Instructions SC QAM 90 Days 01/04/21 70-30 mix 100 unit/mL subcutaneous #10 ml susp amlodipine 5 mg tablet 5 mg PO DAILY #30 tablet 01/10/21 ondansetron HCl 4 mg tablet 4 mg PO Q8H PRN #60 tablet 01/21/21 Surgical History: Surgical History (Last Reviewed 12/09/20 @ 09:53 by Kelsy Melendez) History of right-sided carotid endarterectomy (Chronic) Z98.890 12/01/20 History of esophageal dilatation (Acute) Z98.890 History of esophagogastroduodenoscopy (EGD) (Acute) Z98.890 Surgical History: - - History of esophageal dilation, right carotid endarterectomy. Psychiatric History: No pertinent psych hx Lives: Spouse/ Significant Other Smoking Status: Never smoker Tobacco Use: Non-smoker Alcohol: Rare Drugs: None - *Family History Maternal Family History: Family History (Last Reviewed 12/09/20 @ 09:53 by Kelsy Melendez) Mother Breast cancer Myocardial infarction Hypertension Diabetes Heart disease CAD (coronary artery disease) Father Myocardial infarction History Items: Cancer - Mother with a history of breast cancer., Diabetes, High Cholesterol, Heart Disease, Hypertension Paternal Family History: Family History (Last Reviewed 12/09/20 @ 09:53 by Kelsy Melendez) Mother Breast cancer Myocardial infarction Hypertension Diabetes Heart disease CAD (coronary artery disease) Father Myocardial infarction History Items: High Cholesterol, Heart Disease, Hypertension Review of Systems Constitutional: Reports: Anorexia, Malaise, Weakness, Fatigue. Denies: Chills, Fever, Weight Change HEENT: Denies: Head Aches, Sinus Congestion, Sinus Drainage Cardiovascular: Denies: Chest Pain, Palpitations Respiratory: Denies: Cough, Shortness of Breath, Shortness of breath at rest, Shortness of breath upon exertion, Sputum production Gastrointestinal: Reports: Abdominal Pain, Diarrhea, Nausea, Vomiting Genitourinary: Denies: Dysuria Musculoskeletal: Denies: Joint Pain, Joint Tenderness Skin: Denies: Rash, Wounds Neurological: Denies: Numbness, Tingling, Focal weakness Psychiatric: Denies: Anxiety, Depression, Homicidal Ideations, Suicidal Ideations Hematologic/ Lymphatic: Denies: Easy Bruising, Easy Bleeding VTE Information - Inpt Only VTE Present on Admission: No VTE Mechan Device Prophylaxis: SCD's VTE Pharm Prophylaxis ordered?: Yes Patient Problems: Active and Suspected Problems (Last Reviewed 12/09/20 @ 09:53 by Kelsy Melendez) Vomiting and diarrhea (Acute) Dehydration (Acute) Medication side effect (Acute) Acute renal insufficiency (Acute) Subjective: Patient seated upright in the ED bed, fatigued, ill-appearing. Objective: Physical Examination: General: awake, alert, oriented x 3 and cooperative, patient seated upright in the ED bed, fatigued and ill-appearing especially compared to his normal status. Skin: normal color, turgor, no icterus, cyanosis. HEENT: AT/NC, EOMI, PERRLA, dry MM, no carotid bruits or JVD noted. Lungs: Clear to auscultation bilaterally, appropriate effort, no rales, ronchi or wheezing. Heart: Mildly tachycardic with regular rhythm; no gallop, rub audible. Abdomen: soft, NTTP, mildly distended, mildly hyperactive BS, no HSM. Extremities: no cyanosis, clubbing, or edema. Neurological: patient awake, alert, oriented as noted; cognitive function intact but notably fatigued; pupils equally reactive to light and accomodation; cranial nerves II-XII grossly normal, moving all 4 extremities, no focal deficits, strength mildly to moderately global decrease given acute presentation. Psychiatric: affect appears fatigued, no acute evidence of depressive or anxiety feelings. - Physical Exam Vitals/I&O's: Vital Signs Temp Pulse Resp BP Pulse Ox 97.1 F L 88 16 117/71 98 01/21/21 21:13 01/21/21 23:10 01/21/21 22:47 01/21/21 23:10 01/21/21 22:47 Oxygen Delivery Method Room Air Weight: 190 lb Body Mass Index (BMI) 29.7 Finger Stick Blood Glucose 223 Intake and Output for Last 24 Hours 01/19/21 01/20/21 01/21/21 23:59 23:59 23:59 Intake Total 1000 / 1000 Balance 1000 / 1000 Laboratory Results 01/21/21 21:42: WBC 11.0, RBC 5.70, Hgb 15.7, Hct 47.8, MCV 83.9, MCH 27.5, MCHC 32.8, RDW Std Deviation 39.6, RDW Coeff of Alyssia 12.9, Plt Count 419, MPV 8.6, Immature Gran % (Auto) 0.200, Neut % (Auto) 78.4 H, Lymph % (Auto) 12.1 L, [place] % (Auto) 7.4, Eos % (Auto) 1.5, Baso % (Auto) 0.4, Absolute Neuts (auto) 8.6 H, Absolute Lymphs (auto) 1.33, Nucleated RBC % 0 01/21/21 21:42: Sodium 136, Potassium 3.8, Chloride 103, Carbon Dioxide 19.0 L, Anion Gap 14, BUN 33 H, Creatinine 2.25 H, Estim Creat Clear Calc 28.97, Est GFR (MDRD) Af Amer 37 L, Est GFR (MDRD) Non-Af 31 L, BUN/Creatinine Ratio 14.7, Glucose 291 H, Calcium 9.8, Total Bilirubin 0.70, AST 11 L, ALT 28, Alkaline Phosphatase 76, Total Protein 8.5 H, Albumin 3.7, Globulin 4.8 H, Albumin/Globulin Ratio 0.8 L, Lipase 134 Assessment/Plan All Active Problems (Last Reviewed 12/09/20 @ 09:53 by Kelsy Melendez) Vomiting and diarrhea (Acute) Dehydration (Acute) Medication side effect (Acute) Acute renal insufficiency (Acute) Acute kidney injury superimposed on CKD (Acute) Dizziness (Acute) Dizziness, nonspecific (Acute) History of esophageal dilatation (Acute) History of esophagogastroduodenoscopy (EGD) (Acute) The patient is a 70 y/o M w/ PMHx: HTN, HLD, GERD, CKD stage III, Carotid disease s/p R CEA, Allergic rhinitis, Diabetes mellitus type II who presents to the [facility] ED on 01/21/21 with recent initiation Trulicity ~ 2 weeks prior and within 24 hours of usage of the medication he has onset 24-38 hours of episodes of nausea, emesis and diarrhea which again recurred this week prompting evaluation given fatigue, malaise, inability to appropriately maintain hydration. 1. Intractable nausea, emesis, diarrhea suspected secondary side effect of recent initiation Trulicity: We will admit to medical surgical floor, continue aggressive hydration, will initially placed on clear liquids with advancement of diet once clinically improved, will obtain c diff, stool cx to be cautious given exposure potential, although more suspicious for medication side effect, will not start antibiotics at this time given unclear source pending stool studies as may be viral gastroenteritis. Anti-emetics, pain regimen PRN. If renal function improved and tolerating oral intake with less than diarrhea, even potentially adding antidiarrheal medication if negative stool studies would plan discharge to home tomorrow. 2. Acute kidney injury on CKD stage III: Secondary to GI losses with N/V/D. Admission BUN/Cr 33/2.25, prior baseline creatinine noted to be 1.4-1.6. Will hydrate, hold nephrotoxic medications and repeat chemistry in AM. If no improvement would plan FeNa assessment. 3. Diabetes mellitus type II: Hold oral home regimen, hold recently initiated Trulicity especially given GI side effects #1, ADA diet, accu checks w/ ISS. His primary care physician has already contacted him and instructed him to discontinue Trulicity. 4. Hypertension: Continue home regimen including amlodipine, hold lisinopril and hydrochlorothiazide component given GI losses with dehydration and acute kidney injury as noted upon presentation, add back once appropriate, PRN hydralazine. 5. Hyperlipidemia: Continue home statin regimen. 6. GERD: We will continue patient home PPI. 7. Carotid disease: Patient status post right CEA: We will continue patient home aspirin, statin, altered hypertensive regimen given presentation as noted with resumption once appropriate. 8. DVT prophylaxis: SCDs, heparin. OBSV E&M: [id number] Initial observation care L3
[2021-01-22] VITALS (8 sets, daily range): BP systolic 108–150; BP diastolic 69–89; PULSE 72–89; RESP 16–18; TEMP 36.2–37.2; O2SAT 96–100; BMI 30.6
[2021-01-22] MEDS: 0.9% Normal Saline 1,000 ML 125 ML IV ×4 (01:20→22:37)
[2021-01-22] MEDS: 0.9% Normal Saline 1,000 ML 999 ML IV (01:20)
[2021-01-22 01:22] LABS: Magnesium 1.6 mg/dL (1.6-2.6)
[2021-01-22] MEDS: Insulin Lispro 100 UNIT/ML INSULN.PEN SC ×2 (06:45→21:07)
[2021-01-22 06:55] LABS: Bedside Glucose 181 mg/dL (70-110)
[2021-01-22 07:20] LABS: Absolute Lymphocyte Count 1.63 X10^3/uL (0.83-4.51); Absolute Neutrophil Count 4.6 X10^3/uL (2.0-7.7); Basophil# 0.03 X10^3/uL; Basophil% 0.4 % (0-1); Eosinophil# 0.33 X10^3/uL; Eosinophils% 4.5 % (0-5); Hematocrit 39.5 % (40-54); Hemoglobin 12.6 g/dL (13.0-16.5); Lymphocyte # 1.63 X10^3/ul (0.83-4.51); Mean Corp Hgb Conc 31.9 g/dL (32-36); Mean Corpuscular Hgb 27.4 pg (27.0-32.0); Mean Corpuscular Volume 85.9 fL (80-94); Mean Platelet Vol. 8.8 fl (6.2-12.0); Monocyte# 0.81 X10^3/uL; Monocyte% 10.9 % (0-10); NRBC Flagged by Analyzer 0 % (0-5); Neutrophil % 62.1 % (47-70); Platelet Count 313 K/mm3 (150-450); RBC Distribution Width CV 13.2 % (11.6-14.6); RBC Distribution Width SD 40.9 fl (35.1-43.9); White Blood Count 7.4 K/mm3 (4.4-11.0)
--- NOTE | 2021-01-22 07:32 | PN_ITS ---
Patient Problems: Active and Suspected Problems (Last Reviewed 12/09/20 @ 09:53 by Kelsy Melendez) Vomiting and diarrhea (Acute) Dehydration (Acute) Medication side effect (Acute) Acute renal insufficiency (Acute) Acute kidney injury superimposed on CKD (Acute) Reason for Visit: Acute kidney injury Intractable nausea vomiting Subjective: Patient is a 70-year-old gentleman admitted with intractable nausea vomiting with associated diarrhea. Found to have acute kidney injury admitted to regular nursing floor for further management Objective: GENERAL: cooperative HEENT: Atraumatic; EYES; Anicteric, Normal Conjunctiva NECK; supple, normal thyroid, RESPIRATORY: Diminished to auscultation CARDIOVASCULAR: Regular S1 S2, GI: soft, normoactive bowel sounds, : No Renal angle tenderness; EXTREMITIES: No edema, no clubbing, MUSCULOSKELETAL: no muscle waisting NEURO: Awake; no lateralizing signs. SKIN: No Rash PSYCH; Flat affect Vitals/I&O's: Vital Signs Temp Pulse Resp BP Pulse Ox 98.9 F 72 16 141/82 H 98 01/22/21 06:35 01/22/21 06:35 01/22/21 06:35 01/22/21 06:35 01/22/21 06:35 Oxygen Delivery Method Room Air Weight: 88.6 kg Body Mass Index (BMI) 30.6 Finger Stick Blood Glucose 223 Intake and Output for Last 24 Hours 01/20/21 01/21/21 01/22/21 23:59 23:59 23:59 Intake Total 1000 / 1000 1999 Balance 1000 / 1000 1999 Laboratory Results 01/21/21 21:12: Magnesium 1.6 01/21/21 21:42: WBC 11.0, RBC 5.70, Hgb 15.7, Hct 47.8, MCV 83.9, MCH 27.5, MCHC 32.8, RDW Std Deviation 39.6, RDW Coeff of Alyssia 12.9, Plt Count 419, MPV 8.6, Immature Gran % (Auto) 0.200, Neut % (Auto) 78.4 H, Lymph % (Auto) 12.1 L, Gregory % (Auto) 7.4, Eos % (Auto) 1.5, Baso % (Auto) 0.4, Absolute Neuts (auto) 8.6 H, Absolute Lymphs (auto) 1.33, Nucleated RBC % 0 01/21/21 21:42: Sodium 136, Potassium 3.8, Chloride 103, Carbon Dioxide 19.0 L, Anion Gap 14, BUN 33 H, Creatinine 2.25 H, Estim Creat Clear Calc 28.97, Est GFR (MDRD) Af Amer 37 L, Est GFR (MDRD) Non-Af 31 L, BUN/Creatinine Ratio 14.7, Glucose 291 H, Calcium 9.8, Total Bilirubin 0.70, AST 11 L, ALT 28, Alkaline Phosphatase 76, Total Protein 8.5 H, Albumin 3.7, Globulin 4.8 H, Albumin/Globulin Ratio 0.8 L, Lipase 134 01/22/21 06:41: POC Glucose 181 H 01/22/21 07:08: WBC 7.4, RBC 4.60, Hgb 12.6 L, Hct 39.5 L, MCV 85.9, MCH 27.4, MCHC 31.9 L, RDW Std Deviation 40.9, RDW Coeff of Alyssia 13.2, Plt Count 313, MPV 8.8, Immature Gran % (Auto) 0.100, Neut % (Auto) 62.1, Lymph % (Auto) 22.0, Gregory % (Auto) 10.9 H, Eos % (Auto) 4.5, Baso % (Auto) 0.4, Absolute Neuts (auto) 4.6, Absolute Lymphs (auto) 1.63, Nucleated RBC % 0 01/22/21 07:08: Sodium Pending, Potassium Pending, Chloride Pending, Carbon Dioxide Pending, Anion Gap Pending, BUN Pending, Creatinine Pending, Est GFR (MDRD) Af Amer Pending, Est GFR (MDRD) Non-Af Pending, BUN/Creatinine Ratio Pending, Glucose Pending, Calcium Pending, Total Bilirubin Pending, AST Pending, ALT Pending, Alkaline Phosphatase Pending, Total Protein Pending, Albumin Pending Current Medications Acetaminophen (Acetaminophen 325 Mg Tablet) 650 mg PO Q6H PRN PRN PRN Reason: Pain Score 1-10/Temp > 100.7 F Al Hydroxide/Mg Hydroxide (Mag Hydrox/Al Hydrox/Simeth 30 Ml Udc) 30 ml PO Q6H PRN PRN PRN Reason: Gastric Burning Albuterol Sulfate (Albuterol 2.5 Mg/3 Ml Vial.Neb.) 2.5 mg INHALATION Q2H PRN PRN PRN Reason: Dyspnea, wheezing Amlodipine Besylate (Amlodipine 5 Mg Tablet) 5 mg PO DAILY [facility] Aspirin (Aspirin E.C. 81 Mg Tablet) 81 mg PO DAILY [facility] Atorvastatin Calcium (Atorvastatin Calcium 40 Mg Tablet) 40 mg PO QHS [facility] Guaifenesin (Guaifenesin 10 Ml Udc (200mg/10ml)) 20 ml PO Q4H PRN PRN PRN Reason: COUGH Heparin Sodium (Porcine) (Heparin Injection (Vial) 5,000 Unit/Ml Vial) 5,000 unit SC Q12 [facility] Hydralazine HCl (Hydralazine 20 Mg/Ml Vial) 10 mg IV Q4H PRN PRN PRN Reason: SBP > 160 Sodium Chloride () 1,000 mls @ 125 mls/hr IV .Q8H [facility] Last Admin: 01/22/21 01:20 Dose: 125 mls/hr Documented by: Insulin Human Lispro (Insulin Lispro 100 Unit/Ml Insuln.Pen) [address] [facility]; Protocol Last Admin: 01/22/21 06:45 Dose: 1 u Documented by: Insulin Lispro Protam/Lispro Human (Insulin Human 75/25 [place]) 18 unit SC QAM [facility] Insulin Lispro Protam/Lispro Human (Insulin Human 75/25 [place]) 30 unit SC QHS [facility] Ondansetron HCl (Ondansetron 4 Mg/2 Ml Vial) 4 mg IV Q8H PRN PRN PRN Reason: NAUSEA/VOMITING Pantoprazole Sodium (Pantoprazole Sodium 40 Mg Tablet) 40 mg PO DAILY [facility] Prochlorperazine Edisylate (Prochlorperazine 10 Mg/2 Ml Vial) 5 mg IV Q4H PRN PRN PRN Reason: Breakthrough nausea/vomiting Sodium Chloride (0.9% Saline Lock 10 Ml Syringe) 10 - 40 ml IV UD PRN PRN Reason: SALINE FLUSH Temazepam (Temazepam 15 Mg Capsule) 15 mg PO QHS PRN PRN PRN Reason: INSOMNIA Throat Lozenges (Benzocaine/Menthol 1 Lozenge) 1 lozenge MUCOUS MEM Q2H PRN PRN PRN Reason: SORE THROAT STROKE Vital Signs/Narrative: Vital Signs Temp Pulse Resp BP Pulse Ox 01/22/21 06:35 98.9 F 72 16 141/82 H 98 Medical Necessity - Tobacco Use Smoking Status: Never smoker Tobacco Use: Non-smoker Assessment/Plan All Active Problems (Last Reviewed 12/09/20 @ 09:53 by Kelsy Melendez) Vomiting and diarrhea (Acute) Dehydration (Acute) Medication side effect (Acute) Acute renal insufficiency (Acute) Acute kidney injury superimposed on CKD (Acute) Dizziness (Acute) Dizziness, nonspecific (Acute) History of esophageal dilatation (Acute) History of esophagogastroduodenoscopy (EGD) (Acute) Patient is a 70-year-old gentleman admitted with intractable nausea vomiting. Found to have acute kidney injury admitted to regular nursing floor for further management 1. Acute gastroenteritis ?Patient presented with intractable nausea vomiting abdominal discomfort as well as diarrhea. Patient admitted to regular nursing floor please on dietary precautions stool sample was sent to rule out infectious etiology. Symptomatic treatment initiated. 3. Acute kidney injury ?Secondary to above check to regular nursing floor. Patient started on IV fluid. Ordered serial BMPs for monitoring of patient impaired kidney function 3. Diabetes mellitus type 2 ?Patient was recently started on Trulicity, it was felt this may be contributing to patient's significant GI issues on admission currently being held. Subsequently placed on on Accu-Cheks before meals and at bedtime with sliding scale insulin 4. Carotid artery disease ?Status post right CEA 5. Dyslipidemia -Patient is on statin therapy, continued at home dose 6. GERD ?Patient is on PPI did continue 7. Hypertension - Blood pressure controlled, home medications continued with dose adjustment as needed 8. Obesity with BMI of 30.6 ?Weight loss advised 9. DVT prophylaxis -SC heparin OBSV E&M: [id number] Subsequent observation care L3
[2021-01-22 08:00] LABS: ALB/GLOB Ratio 0.8 RATIO (0.9-2.4); AST(SGOT) 11 U/L (15-37); Alanine Aminotransfer ALT/SGPT 20 U/L (16-61); Albumin, Serum 2.9 g/dL (3.2-5.0); Alkaline Phosphatase 61 U/L (45-117); Anion Gap 8 (5-15); BUN 31 mg/dL (7-18); BUN/Creat Ratio 19.4 RATIO (10-20); Chloride 111 mmol/L (98-107); EST Glomerular Filtration Rate 46 mL/min (>60); Est Glom Filt Rate - Afr Amer 55 mL/min (>60); Estimated Creatinine Clearance 40.74 ml/min; Globulin 3.7 g/dL (2.2-4.2); Glucose 172 mg/dL (74-106); Potassium 3.7 mmol/L (3.5-5.1); Protein, Total 6.6 g/dL (6.4-8.2); Sodium Level 139 mmol/L (136-145)
[2021-01-22] MEDS: Heparin Injection (Vial) 5,000 UNIT/ML VIAL 5000 UNIT SC ×2 (10:46→21:07)
[2021-01-22] MEDS: Pantoprazole Sodium 40 MG Tablet PO (10:46)
[2021-01-22] MEDS: amLODIPine 5 MG Tablet PO (10:46)
[2021-01-22] MEDS: Aspirin E.C. 81 MG Tablet PO (10:46)
[2021-01-22] MEDS: Insulin Human 75/25 Kwickpen 18 UNIT SC (11:50)
[2021-01-22 11:55] LABS: Bedside Glucose 157 mg/dL (70-110)
[2021-01-22 17:35] LABS: Bedside Glucose 148 mg/dL (70-110)
[2021-01-22] MEDS: Atorvastatin Calcium 40 MG Tablet PO (21:07)
[2021-01-22] MEDS: Insulin Human 75/25 Kwickpen 30 UNIT SC (21:15)
[2021-01-22 21:45] LABS: Bedside Glucose 157 mg/dL (70-110)
[2021-01-23 03:44] VITALS: BP 147/78; PULSE 61; RESP 16; TEMP 36.5; O2SAT 98
[2021-01-23 06:08] LABS: Hematocrit 33.9 % (40-54); Hemoglobin 10.5 g/dL (13.0-16.5); Mean Corpuscular Hgb 26.9 pg (27.0-32.0); Mean Corpuscular Volume 86.9 fL (80-94); Mean Platelet Vol. 8.8 fl (6.2-12.0); Platelet Count 234 K/mm3 (150-450); RBC Distribution Width CV 13.1 % (11.6-14.6); RBC Distribution Width SD 41.4 fl (35.1-43.9); White Blood Count 6.4 K/mm3 (4.4-11.0)
[2021-01-23] MEDS: 0.9% Normal Saline 1,000 ML 125 ML IV (06:21)
[2021-01-23 06:32] LABS: Anion Gap 3 (5-15); BUN 22 mg/dL (7-18); BUN/Creat Ratio 18.2 RATIO (10-20); Calcium,Total 7.8 mg/dL (8.5-10.1); Chloride 114 mmol/L (98-107); Creatinine, Serum 1.21 mg/dL (0.70-1.30); EST Glomerular Filtration Rate 63 mL/min (>60); Est Glom Filt Rate - Afr Amer 76 mL/min (>60); Estimated Creatinine Clearance 53.87 ml/min; Glucose 160 mg/dL (74-106); Magnesium 1.8 mg/dL (1.6-2.6); Potassium 3.8 mmol/L (3.5-5.1); Sodium Level 141 mmol/L (136-145)
[2021-01-23] MEDS: Insulin Lispro 100 UNIT/ML INSULN.PEN SC (06:40)
[2021-01-23 06:45] LABS: Bedside Glucose 152 mg/dL (70-110)
[2021-01-23 06:46] VITALS: O2SAT 94
[2021-01-23 08:01] VITALS: BP 158/93; PULSE 66; RESP 16; TEMP 36.9; O2SAT 99
[2021-01-23] MEDS: Aspirin E.C. 81 MG Tablet PO (08:05)
[2021-01-23] MEDS: amLODIPine 5 MG Tablet PO (08:05)
[2021-01-23] MEDS: Pantoprazole Sodium 40 MG Tablet PO (08:06)
[2021-01-23] MEDS: Insulin Human 75/25 Kwickpen 18 UNIT SC (08:42)
--- NOTE | 2021-01-23 10:14 | DCINST_ITS ---
- Discharge Diagnoses Current Active Problems: Current Active and Chronic Problems (Last Reviewed 12/09/20 @ 09:53 by Kelsy Melendez) Vomiting and diarrhea (Acute) Dehydration (Acute) Medication side effect (Acute) Acute renal insufficiency (Acute) Acute kidney injury superimposed on CKD (Acute) History of right-sided carotid endarterectomy (Chronic) 12/01/20 Carotid stenosis, bilateral (Chronic) Chronic kidney disease, stage III (moderate) (Chronic) Type 2 diabetes mellitus (Chronic) GERD (gastroesophageal reflux disease) (Chronic) High cholesterol (Chronic) Diabetes type 2, controlled (Chronic) Dx : 2007 Last exacerbation : dka : never hypoglycemic episode : never er visit : never Arthritis (Chronic) Seasonal allergies (Chronic) HTN (hypertension) (Chronic) Hypertension, essential (Chronic) Reports taking medication as directed. His BP wassl elevated but reports busy day. Will have patient recheck at home as well as in this office Diabetes mellitus type 1, controlled, without complications (Chronic) Reports he may be eating out too much and not watching his portion control. He continues to make adjustments in his lantus. You will use the following diet at home:: Calorie/Carbohydrate Controlled (specify 1200, 1400, etc) - 1800 Your food should be the consistency of: Regular Your liquids should be the consistency of: Regular/Thin Discharge Activity: Return to Normal Activity Allergies/Adverse Reactions: Allergies Penicillins Allergy (Severe, Verified 12/09/20 09:53) Rash Medications to take at Discharge Aspirin [Low Dose Aspirin EC] 81 mg PO DAILY 11/24/20 Lisinopril/Hydrochlorothiazide [Lisinopril-Hctz 10-12.5 mg Tab] 1 tab PO BID 11/24/20 Rosuvastatin Calcium 20 mg PO DAILY 11/24/20 Blood Sugar Diagnostic [Precision Q-I-D] 1 % .ROUTE .MEDSUPPLY 12/01/20 Blood-Glucose Meter [Freestyle System] See Rx Instructions .ROUTE .MEDSUPPLY 12/01/20 Flash Glucose Scanning [place] [Freestyle Tana 10 Day [place]] See Rx Instructions .ROUTE .MEDSUPPLY 12/01/20 Flash Glucose Sensor [Freestyle Tana 10 Day Sensor] See Rx Instructions .ROUTE .MEDSUPPLY 12/01/20 Pantoprazole Sodium 40 mg PO QDAY 12/01/20 Pen needles 0 % .ROUTE .MEDSUPPLY 12/01/20 insulin human U-100 NPH-regulr 70-30 mix 100 unit/mL subcutaneous susp See Rx Instructions SC QAM 90 Days #10 ml 01/04/21 amlodipine 5 mg tablet 5 mg PO DAILY #30 tablet 01/10/21 ondansetron HCl 4 mg tablet 4 mg PO Q8H PRN #60 tablet 01/21/21 Primary Care Physician: Severino Hylton MD [Primary Care Provider] - Please follow up with your Primary Care Physician in: in 1 week Test Results: Test results from this visit will be discussed in further detail at your follow- up appointment, if applicable. Proposed Discharge Date: 01/23/21
--- NOTE | 2021-01-23 10:16 | PCM.DC.SUM ---
Discharge Date and Diagnosis - Problem List Patient Problems: Active and Suspected Problems (Last Reviewed 12/09/20 @ 09:53 by Kelsy Melendez) Vomiting and diarrhea (Acute) Dehydration (Acute) Medication side effect (Acute) Acute renal insufficiency (Acute) Acute kidney injury superimposed on CKD (Acute) Date of Admission: 01/21/21 Date of Discharge: 01/23/21 - Primary Discharge Diagnosis Acute Problems: Active Problems (Last Reviewed 12/09/20 @ 09:53 by Kelsy Melendez) Vomiting and diarrhea (Acute) Dehydration (Acute) Medication side effect (Acute) Acute renal insufficiency (Acute) Acute kidney injury superimposed on CKD (Acute) - Secondary Discharge Diagnosis Chronic Problems: Chronic Problems (Last Reviewed 12/09/20 @ 09:53 by Kelsy Melendez) History of right-sided carotid endarterectomy (Chronic) 12/01/20 Carotid stenosis, bilateral (Chronic) Right hip pain (Chronic) Chronic kidney disease, stage III (moderate) (Chronic) Hyperlipidemia (Chronic) Type 2 diabetes mellitus (Chronic) Vision problems (Chronic) Skin cancer (Chronic) GERD (gastroesophageal reflux disease) (Chronic) High cholesterol (Chronic) Diabetes type 2, controlled (Chronic) Dx : 2007 Last exacerbation : dka : never hypoglycemic episode : never er visit : never Arthritis (Chronic) Seasonal allergies (Chronic) HTN (hypertension) (Chronic) Hypertension, essential (Chronic) Reports taking medication as directed. His BP wassl elevated but reports busy day. Will have patient recheck at home as well as in this office Diabetes mellitus type 1, controlled, without complications (Chronic) Reports he may be eating out too much and not watching his portion control. He continues to make adjustments in his lantus. Hospital Course and Treatment Imaging Results: Microbiology 01/22/21 16:00 Mucosa - Nose SARS-CoV-2 Antigen (Rapid) - Final 01/22/21 08:00 Stool Enteric Bacteriology - Final 01/22/21 08:00 Stool C. difficile DNA Amplification - Final Summary of Care Provided: Patient is a 70-year-old gentleman admitted with intractable nausea vomiting. Found to have acute kidney injury admitted to regular nursing floor for further management 1. Acute gastroenteritis ?Patient presented with intractable nausea vomiting abdominal discomfort as well as diarrhea. Patient admitted to regular nursing floor please on dietary precautions stool sample was sent to rule out infectious etiology. Symptomatic treatment initiated. -Stool studies came back negative patient symptoms did improve 3. Acute kidney injury ?Secondary to above check to regular nursing floor. Patient started on IV fluid. Ordered serial BMPs for monitoring of patient impaired kidney function ?Acute kidney injury resolved at the time of discharge 3. Diabetes mellitus type 2 ?Patient was recently started on Trulicity, it was felt this may be contributing to patient's significant GI issues on admission currently being held. Subsequently placed on on Accu-Cheks before meals and at bedtime with sliding scale insulin\ -Patient instructed to follow-up with PCP for further discussion regarding his Trulicity 4. Carotid artery disease ?Status post right CEA 5. Dyslipidemia -Patient is on statin therapy, continued at home dose 6. GERD ?Patient is on PPI did continue 7. Hypertension - Blood pressure controlled, home medications continued with dose adjustment as needed 8. Obesity with BMI of 30.6 ?Weight loss advised 9. DVT prophylaxis -SC heparin Patient Problems: Active and Suspected Problems (Last Reviewed 12/09/20 @ 09:53 by Kelsy Melendez) Vomiting and diarrhea (Acute) Dehydration (Acute) Medication side effect (Acute) Acute renal insufficiency (Acute) Acute kidney injury superimposed on CKD (Acute) Objective: GENERAL: cooperative HEENT: Atraumatic; EYES; Anicteric, Normal Conjunctiva NECK; supple, normal thyroid, RESPIRATORY: Diminished to auscultation CARDIOVASCULAR: Regular S1 S2, GI: soft, normoactive bowel sounds, : No Renal angle tenderness; EXTREMITIES: No edema, no clubbing, MUSCULOSKELETAL: no muscle waisting NEURO: Awake; no lateralizing signs. SKIN: No Rash PSYCH; Flat affect - Physical Exam Vitals/I&O's: Vital Signs Temp Pulse Resp BP Pulse Ox 98.4 F 66 16 158/93 H 99 01/23/21 08:01 01/23/21 08:01 01/23/21 08:01 01/23/21 08:01 01/23/21 08:01 Oxygen Delivery Method Room Air Weight: 88.6 kg Body Mass Index (BMI) 30.6 Finger Stick Blood Glucose 223 Intake and Output for Last 24 Hours 01/21/21 01/22/21 01/23/21 23:59 23:59 23:59 Intake Total 1000 / 1000 5520.42 / 5520.42 966.67 / 966.67 Output Total 1000 / 1000 700 / 700 Balance 1000 / 1000 4520.42 / 4520.42 266.67 / 266.67 Microbiology Past 72 Hours 01/22/21 16:00 Mucosa - Nose SARS-CoV-2 Antigen (Rapid) - Final 01/22/21 08:00 Stool Enteric Bacteriology - Final 01/22/21 08:00 Stool C. difficile DNA Amplification - Final Laboratory Results 01/22/21 11:28: POC Glucose 157 H 01/22/21 17:27: POC Glucose 148 H 01/22/21 21:05: POC Glucose 157 H 01/23/21 05:50: WBC 6.4, RBC 3.90 L, Hgb 10.5 L, Hct 33.9 L, MCV 86.9, MCH 26.9 L, MCHC 31.0 L, RDW Std Deviation 41.4, RDW Coeff of Alyssia 13.1, Plt Count 234, MPV 8.8 01/23/21 05:50: Sodium 141, Potassium 3.8, Chloride 114 H, Carbon Dioxide 24.0, Anion Gap 3 L, BUN 22 H, Creatinine 1.21, Estim Creat Clear Calc 53.87, Est GFR (MDRD) Af Amer 76, Est GFR (MDRD) Non-Af 63, BUN/Creatinine Ratio 18.2, Glucose 160 H, Calcium 7.8 L, Magnesium 1.8 01/23/21 06:39: POC Glucose 152 H Current Medications Acetaminophen (Acetaminophen 325 Mg Tablet) 650 mg PO Q6H PRN PRN PRN Reason: Pain Score 1-10/Temp > 100.7 F Al Hydroxide/Mg Hydroxide (Mag Hydrox/Al Hydrox/Simeth 30 Ml Udc) 30 ml PO Q6H PRN PRN PRN Reason: Gastric Burning Albuterol Sulfate (Albuterol 2.5 Mg/3 Ml Vial.Neb.) 2.5 mg INHALATION Q2H PRN PRN PRN Reason: Dyspnea, wheezing Amlodipine Besylate (Amlodipine 5 Mg Tablet) 5 mg PO DAILY COUNT INCLUDES THE [facility] Last Admin: 01/23/21 08:05 Dose: 5 mg Documented by: Aspirin (Aspirin E.C. 81 Mg Tablet) 81 mg PO DAILY COUNT INCLUDES THE [facility] Last Admin: 01/23/21 08:05 Dose: 81 mg Documented by: Atorvastatin Calcium (Atorvastatin Calcium 40 Mg Tablet) 40 mg PO QHS COUNT INCLUDES THE [facility] Last Admin: 01/22/21 21:07 Dose: 40 mg Documented by: Guaifenesin (Guaifenesin 10 Ml Udc (200mg/10ml)) 20 ml PO Q4H PRN PRN PRN Reason: COUGH Heparin Sodium (Porcine) (Heparin Injection (Vial) 5,000 Unit/Ml Vial) 5,000 unit SC Q12 COUNT INCLUDES THE [facility] Last Admin: 01/23/21 08:46 Dose: Not Given Documented by: Hydralazine HCl (Hydralazine 20 Mg/Ml Vial) 10 mg IV Q4H PRN PRN PRN Reason: SBP > 160 Sodium Chloride () 1,000 mls @ 125 mls/hr IV .Q8H COUNT INCLUDES THE [facility] Last Admin: 01/23/21 06:21 Dose: 125 mls/hr Documented by: Insulin Human Lispro (Insulin Lispro 100 Unit/Ml Insuln.Pen) 0 unit SC ACHS COUNT INCLUDES THE [facility]; Protocol Last Admin: 01/23/21 06:40 Dose: 1 u Documented by: Insulin Lispro Protam/Lispro Human (Insulin Human 75/25 [place]) [facility] Admin: 01/23/21 08:42 Dose: 18 u Documented by: Insulin Lispro Protam/Lispro Human (Insulin Human 75/25 [place]) 30 unit SC QHS COUNT INCLUDES THE [facility] Last Admin: 01/22/21 21:15 Dose: 30 units Documented by: Ondansetron HCl (Ondansetron 4 Mg/2 Ml Vial) 4 mg IV Q8H PRN PRN PRN Reason: NAUSEA/VOMITING Pantoprazole Sodium (Pantoprazole Sodium 40 Mg Tablet) 40 mg PO DAILY COUNT INCLUDES THE [facility] Last Admin: 01/23/21 08:06 Dose: 40 mg Documented by: Prochlorperazine Edisylate (Prochlorperazine 10 Mg/2 Ml Vial) 5 mg IV Q4H PRN PRN PRN Reason: Breakthrough nausea/vomiting Sodium Chloride (0.9% Saline Lock 10 Ml Syringe) 10 - 40 ml IV UD PRN PRN Reason: SALINE FLUSH Temazepam (Temazepam 15 Mg Capsule) 15 mg PO QHS PRN PRN PRN Reason: INSOMNIA Throat Lozenges (Benzocaine/Menthol 1 Lozenge) 1 lozenge MUCOUS MEM Q2H PRN PRN PRN Reason: SORE THROAT Discharge Diet: 1800 Calorie Control Diet Discharge Activity: Return to Normal Activity Home Medications: Medications to take at Discharge Aspirin [Low Dose Aspirin EC] 81 mg PO DAILY 11/24/20 Lisinopril/Hydrochlorothiazide [Lisinopril-Hctz 10-12.5 mg Tab] 1 tab PO BID 11/24/20 Rosuvastatin Calcium 20 mg PO DAILY 11/24/20 Blood Sugar Diagnostic [Precision Q-I-D] 1 % .ROUTE .MEDSUPPLY 12/01/20 Blood-Glucose Meter [Rx Systems PFstyle System] See Rx Instructions .ROUTE .MEDSUPPLY 12/01/20 Flash Glucose Scanning [place] [Freestyle Tana 10 Day [place]] See Rx Instructions .ROUTE .MEDSUPPLY 12/01/20 Flash Glucose Sensor [Freestyle Tana 10 Day Sensor] See Rx Instructions .ROUTE .MEDSUPPLY 12/01/20 Pantoprazole Sodium 40 mg PO QDAY 12/01/20 Pen needles 0 % .ROUTE .MEDSUPPLY 12/01/20 insulin human U-100 NPH-regulr 70-30 mix 100 unit/mL subcutaneous susp See Rx Instructions SC QAM 90 Days #10 ml 01/04/21 amlodipine 5 mg tablet 5 mg PO DAILY #30 tablet 01/10/21 ondansetron HCl 4 mg tablet 4 mg PO Q8H PRN #60 tablet 01/21/21 Primary Care Physician: Severino Hylton MD [Primary Care Provider] - Please follow up with your Primary Care Physician in: in 1 week Disposition: Home Minutes spent on discharge:: 40 Patient Condition:: Stable Medical Necessity - Tobacco Use Smoking Status: Never smoker Tobacco Use: Non-smoker Meaningful Use Info Meaningful Use Diagnoses (Choose all that apply): None applicable Inpatient E&M: 85489 Disch Hosp
[2021-01-23 10:35] VITALS: BP 140/87; PULSE 73; RESP 16; TEMP 36.5; O2SAT 99
== END 2021-01-23 10:50 | disposition home or self-care (01) | DRG 683 ==
LOC: ED 23:49 → MS3 01-22 02:09
PROVIDERS: Admitting Provider Family Medicine; Emergency Provider Emergency Medicine; PCP Internal Medicine; Visit Provider Internal Medicine
DX: N17.9 Acute kidney failure, unspecified (principal); K52.1 Toxic gastroenteritis and colitis; T50.995A Adverse effect of other drugs, medicaments and biological substances, initial encounter; I12.9 Hypertensive chronic kidney disease with stage 1 through stage 4 chronic kidney disease, or unspecified chronic kidney disease; E11.22 Type 2 diabetes mellitus with diabetic chronic kidney disease; N18.31 Chronic kidney disease, stage 3a; E86.0 Dehydration; E66.9 Obesity, unspecified; Z68.30 Body mass index [BMI] 30.0-30.9, adult; M19.90 Unspecified osteoarthritis, unspecified site; K21.9 Gastro-esophageal reflux disease without esophagitis; J30.2 Other seasonal allergic rhinitis; I65.23 Occlusion and stenosis of bilateral carotid arteries; E78.00 Pure hypercholesterolemia, unspecified; Z79.4 Long term (current) use of insulin; Z79.82 Long term (current) use of aspirin; Z79.899 Other long term (current) drug therapy
CPT/HCPCS: 36415; 80048; 80053; 82962; 83690; 83735; 85025; 85027; 87426; 87493; 87506; 99251; 99285; J7030; A4216; G0463; J2405

== ENCOUNTER → 2021-04-05 11:12 | Outpatient (CLI) | payer MEDICARE, OTHER, SELFPAY ==
[2021-04-05 10:43] VITALS: BMI 30.6
[2021-04-05 12:08] LABS: Absolute Lymphocyte Count 1.62 X10^3/uL (0.83-4.51); Absolute Neutrophil Count 3.9 X10^3/uL (2.0-7.7); Basophil# 0.06 X10^3/uL; Basophil% 0.9 % (0-1); Eosinophil# 0.19 X10^3/uL; Hematocrit 43.5 % (40-54); Hemoglobin 14.3 g/dL (13.0-16.5); Lymphocyte # 1.62 X10^3/ul (0.83-4.51); Lymphocyte % 25.6 % (19-41); Mean Corp Hgb Conc 32.9 g/dL (32-36); Mean Corpuscular Hgb 27.4 pg (27.0-32.0); Mean Corpuscular Volume 83.3 fL (80-94); Mean Platelet Vol. 8.5 fl (6.2-12.0); Monocyte# 0.53 X10^3/uL; Monocyte% 8.4 % (0-10); NRBC Flagged by Analyzer 0 % (0-5); Neutrophil # 3.92 X10^3/uL (2.7-7.7); Neutrophil % 61.9 % (47-70); Platelet Count 308 K/mm3 (150-450); RBC Distribution Width CV 13.4 % (11.6-14.6); RBC Distribution Width SD 40.7 fl (35.1-43.9); Red Blood Count 5.22 M/mm3 (4.6-6.2); White Blood Count 6.3 K/mm3 (4.4-11.0)
[2021-04-05 12:33] LABS: Anion Gap 5 (5-15); BUN 25 mg/dL (7-18); BUN/Creat Ratio 17.7 RATIO (10-20); Calcium,Total 9.7 mg/dL (8.5-10.1); Chloride 106 mmol/L (98-107); Creatinine, Serum 1.41 mg/dL (0.70-1.30); EST Glomerular Filtration Rate 53 mL/min (>60); Est Glom Filt Rate - Afr Amer 64 mL/min (>60); Glucose 112 mg/dL (74-106); Sodium Level 137 mmol/L (136-145)
== END ==
PROVIDERS: PCP Internal Medicine; Visit Provider Internal Medicine
DX: E11.9 Type 2 diabetes mellitus without complications (principal)
CPT/HCPCS: 36415; 80048; 85025

== ENCOUNTER → 2021-07-11 11:55 | Outpatient (CLI) | payer MEDICARE, OTHER, SELFPAY ==
[2021-07-11 14:43] LABS: Anion Gap 7 (5-15); BUN 28 mg/dL (7-18); BUN/Creat Ratio 18.9 RATIO (10-20); Calcium,Total 9.3 mg/dL (8.5-10.1); Chloride 105 mmol/L (98-107); Creatinine, Serum 1.48 mg/dL (0.70-1.30); EST Glomerular Filtration Rate 50 mL/min (>60); Est Glom Filt Rate - Afr Amer 60 mL/min (>60); Glucose 67 mg/dL (74-106); Potassium 3.9 mmol/L (3.5-5.1); Sodium Level 140 mmol/L (136-145)
== END ==
PROVIDERS: PCP Internal Medicine; Visit Provider Internal Medicine
DX: I10 Essential (primary) hypertension (principal)
CPT/HCPCS: 36415; 80048

== ENCOUNTER 2021-12-06 12:43 | Outpatient (CLI) | payer MEDICARE, OTHER, SELFPAY ==
--- NOTE | 2021-12-06 12:46 | CDU_ITS ---
Reason For Study: carotid stenosis Rt. Velocities/BP Lt. Velocities/BP Prox CCA 44.3/16.8 cm/sec. Prox CCA 97.0/25.6 cm/sec. Mid CCA 45.4/16.8 cm/sec. Mid CCA 100.3/30.0 cm/sec. Dist CCA 60.8/23.4 cm/sec. Dist CCA 95.9/28.9 cm/sec. Prox ICA 83.8/26.7 cm/sec. Prox ICA 141.2/49.9 cm/sec. Mid ICA 87.1/24.5 cm/sec. Mid ICA 110.1/42.6 cm/sec. Dist ICA 66.2/28.9 cm/sec. Dist ICA 72.8/25.6 cm/sec. Rt. ICA/CCA = 1.9. Lt. ICA/CCA = 1.4. Prox ECA 38.8/8.0 cm/sec. Prox ECA 148.5/24.3 cm/sec. Rt. Vert. 47.6/17.9 cm/sec. Lt. Vert. 41.9/11.6 cm/sec. Right Extracranial There is homogeneous, smooth atherosclerotic plaque noted in the right common carotid artery. There is homogeneous, smooth atherosclerotic plaque noted in the right internal carotid artery. There is heterogeneous, irregular atherosclerotic plaque noted in the right external carotid artery. Unable to obtain flow in the proximal ECA. Flow is noted in the distal ECA. Antegrade flow is noted in the right vertebral artery. Left Extracranial There is homogeneous, smooth atherosclerotic plaque noted in the left common carotid artery. There is heterogeneous, irregular atherosclerotic plaque noted in the left internal carotid artery. There is homogeneous, smooth atherosclerotic plaque noted in the left external carotid artery. Antegrade flow is noted in the left vertebral artery. Procedure Carotid Duplex [id number]. This is a Carotid Duplex examination using B-mode, color flow and specral Doppler. VL/Carotid Duplex Ultrasound Interpretation Summary Smooth plaque of the proximal right internal carotid artery with less than 50% stenosis. Postoperative changes of the right carotid bulb and proximal internal carotid a rtery noted Less than 50% stenosis right external carotid artery Irregular calcific plaque at the proximal left internal carotid artery with 50 to 69% stenosis. Less than 50% stenosis left external carotid artery Patent and antegrade vertebral arteries bilaterally No change from the postoperative right carotid from January 04, 2021 and no change on the left carotid from the previous study of November 09, 2020 Ordering Physician: Atiya Terrazas Performed By: Monico Marroquin RVT
== END 2021-12-06 23:59 | disposition home or self-care (01) ==
LOC: CVS 12:45
PROVIDERS: PCP Internal Medicine; Referring Provider Physician Assistant; Visit Provider Physician Assistant
DX: R42 Dizziness and giddiness (principal); I65.23 Occlusion and stenosis of bilateral carotid arteries
CPT/HCPCS: 93880

== ENCOUNTER 2021-12-13 10:11 | Outpatient (CLI) | payer MEDICARE, OTHER, SELFPAY ==
[2021-12-13 12:29] LABS: ALB/GLOB Ratio 0.9 RATIO (0.9-2.4); AST(SGOT) 13 U/L (15-37); Alanine Aminotransfer ALT/SGPT 22 U/L (16-61); Albumin, Serum 3.6 g/dL (3.2-5.0); Alkaline Phosphatase 64 U/L (45-117); Anion Gap 3 (5-15); BUN 29 mg/dL (7-18); BUN/Creat Ratio 18.2 RATIO (10-20); Calcium,Total 9.6 mg/dL (8.5-10.1); Chloride 107 mmol/L (98-107); Creatinine, Serum 1.59 mg/dL (0.70-1.30); EST Glomerular Filtration Rate 46 mL/min (>60); Est Glom Filt Rate - Afr Amer 56 mL/min (>60); Globulin 4.2 g/dL (2.2-4.2); Glucose 87 mg/dL (74-106); Potassium 4.3 mmol/L (3.5-5.1); Protein, Total 7.8 g/dL (6.4-8.2); Sodium Level 138 mmol/L (136-145)
[2021-12-13 12:46] LABS: Microalbumin,Random Urine 14.9 mg/L (NO RANGE EST.)
[2021-12-13 17:05] LABS: Cholesterol 145 mg/dL (200); High Density Lipoprotein 40 mg/dL; Triglycerides 108 mg/dL; Very Low Density Lipoprotein 22 mg/dL (5-40)
== END 2021-12-13 23:59 | disposition home or self-care (01) ==
LOC: BIMLAB 10:12
PROVIDERS: PCP Internal Medicine; Referring Provider Internal Medicine; Visit Provider Internal Medicine
DX: E11.69 Type 2 diabetes mellitus with other specified complication (principal); E11.22 Type 2 diabetes mellitus with diabetic chronic kidney disease; Z79.4 Long term (current) use of insulin; N18.31 Chronic kidney disease, stage 3a; E78.5 Hyperlipidemia, unspecified; I12.9 Hypertensive chronic kidney disease with stage 1 through stage 4 chronic kidney disease, or unspecified chronic kidney disease
CPT/HCPCS: 36415; 80053; 80061; 82043; 82570

== ENCOUNTER 2021-12-29 08:43 | Outpatient (CLI) | payer MEDICARE, OTHER, SELFPAY ==
--- NOTE | 2021-12-29 08:45 | AAAS_ITS ---
Reason For Study: AAA screening Aorta Measurements Aorta Doppler Measurements Proximal aorta measures1.38 x 1.42cm. in cross- Peak systolic flow velocities within the proximal sectional axis. aorta measure 62.5 cm/sec. Proximal aorta measures1.37cm. in longitudinal Peak systolic flow velocities within the mid aorta axis. measure 47.8 cm/sec. Mid aorta measures1.4 x 1.45cm. in cross-sectionalPeak systolic flow velocities within the distal axis. aorta measure 86.2 cm/sec. Mid aorta measures1.31cm. in longitudinal axis. Distal aorta measures1.21 x 1.3cm. in cross- sectional axis. Distal aorta measures1.29cm. in longitudinal axis. Left Iliac Artery Left iliac artery measures .72 x .75 cm. in the cross-sectional axis. Left iliac artery measures .65 cm. in the longitudinal axis. Peak systolic velocity in the left iliac artery measures 95.3 cm/sec. Right Iliac Artery Right iliac artery measures .63 x .51 cm. in the cross-sectional axis. Right iliac artery measures .58 cm. in the longitudinal axis. Peak systolic velocity in the right iliac artery measures 62.5 cm/sec. Procedure Aorta IVC Iliac vasculature or bypass grafts 77106. The exam was diagnostic. Exam performed in department. VL/AAA Screening Interpretation Summary Maximal aortic diameter 1.4 x 1.45cm in mid aorta Normal aortic flow velocity Left common iliac0.72 x 0.75cm normal Right common iliac 0.63 x 0.51cm normal Ordering Physician: Hai Schmid Performed By: Monico Marroquin RVHira
== END 2021-12-29 23:59 | disposition home or self-care (01) ==
LOC: CVS 08:44
PROVIDERS: PCP Internal Medicine; Referring Provider Surgery; Visit Provider Surgery
DX: Z13.6 Encounter for screening for cardiovascular disorders (principal)
CPT/HCPCS: 76706

== ENCOUNTER → 2022-02-13 | Outpatient (CLI) | payer MEDICARE, OTHER, SELFPAY | END | disposition home or self-care (01) | LOC: LABSPEC 13:58 | PROVIDERS: PCP Internal Medicine; Referring Provider Physician Assistant; Visit Provider Physician Assistant | DX: R05.9 Cough, unspecified (principal); Z20.822 Contact with and (suspected) exposure to COVID-19 | CPT/HCPCS: 87635; U0003; U0005 ==

== ENCOUNTER → 2022-03-15 | Outpatient (CLI) | payer MEDICARE, OTHER, SELFPAY ==
[2022-03-15 12:24] LABS: Absolute Lymphocyte Count 2.13 X10^3/uL (0.83-4.51); Basophil# 0.06 X10^3/uL; Basophil% 0.9 % (0-1); Eosinophil# 0.14 X10^3/uL; Hematocrit 43.9 % (40-54); Lymphocyte # 2.13 X10^3/ul (0.83-4.51); Lymphocyte % 30.5 % (19-41); Mean Corp Hgb Conc 31.9 g/dL (32-36); Mean Corpuscular Hgb 27.2 pg (27.0-32.0); Mean Corpuscular Volume 85.2 fL (80-94); Mean Platelet Vol. 8.9 fl (6.2-12.0); Monocyte# 0.61 X10^3/uL; Monocyte% 8.7 % (0-10); NRBC Flagged by Analyzer 0 % (0-5); Neutrophil # 4.02 X10^3/uL (2.7-7.7); Neutrophil % 57.6 % (47-70); Platelet Count 280 K/mm3 (150-450); RBC Distribution Width CV 13.4 % (11.6-14.6); RBC Distribution Width SD 41.8 fl (35.1-43.9); Red Blood Count 5.15 M/mm3 (4.6-6.2)
[2022-03-15 12:59] LABS: Anion Gap 9 (5-15); BUN 34 mg/dL (7-18); BUN/Creat Ratio 21.9 RATIO (10-20); Calcium,Total 9.4 mg/dL (8.5-10.1); Chloride 104 mmol/L (98-107); Creatinine, Serum 1.55 mg/dL (0.70-1.30); EST Glomerular Filtration Rate 47 mL/min (>60); Est Glom Filt Rate - Afr Amer 57 mL/min (>60); Glucose 114 mg/dL (74-106); Sodium Level 136 mmol/L (136-145)
== END | disposition home or self-care (01) ==
LOC: LAB 11:14
PROVIDERS: PCP Internal Medicine; Visit Provider Internal Medicine
DX: E11.65 Type 2 diabetes mellitus with hyperglycemia (principal); Z79.4 Long term (current) use of insulin
CPT/HCPCS: 36415; 80048; 85025

== ENCOUNTER → 2022-10-11 | Outpatient (CLI) | payer MEDICARE, OTHER, SELFPAY ==
[2022-10-11 12:28] LABS: Absolute Lymphocyte Count 1.93 X10^3/uL (0.83-4.51); Basophil# 0.05 X10^3/uL; Basophil% 0.7 % (0-1); Eosinophil# 0.13 X10^3/uL; Eosinophils% 1.7 % (0-5); Hematocrit 45.8 % (40-54); Hemoglobin 14.8 g/dL (13.0-16.5); Lymphocyte # 1.93 X10^3/ul (0.83-4.51); Lymphocyte % 25.1 % (19-41); Mean Corp Hgb Conc 32.3 g/dL (32-36); Mean Corpuscular Hgb 27.6 pg (27.0-32.0); Mean Corpuscular Volume 85.4 fL (80-94); Mean Platelet Vol. 8.9 fl (6.2-12.0); Monocyte# 0.56 X10^3/uL; Monocyte% 7.3 % (0-10); NRBC Flagged by Analyzer 0 % (0-5); Neutrophil # 4.99 X10^3/uL (2.7-7.7); Neutrophil % 64.9 % (47-70); Platelet Count 307 K/mm3 (150-450); RBC Distribution Width CV 13.1 % (11.6-14.6); RBC Distribution Width SD 40.3 fl (35.1-43.9); Red Blood Count 5.36 M/mm3 (4.6-6.2); White Blood Count 7.7 K/mm3 (4.4-11.0)
[2022-10-11 13:02] LABS: ALB/GLOB Ratio 0.8 RATIO (0.9-2.4); AST(SGOT) 14 U/L (15-37); Alanine Aminotransfer ALT/SGPT 25 U/L (16-61); Albumin, Serum 3.6 g/dL (3.2-5.0); Alkaline Phosphatase 69 U/L (45-117); Anion Gap 5 (5-15); BUN 26 mg/dL (7-18); BUN/Creat Ratio 15.5 RATIO (10-20); Calcium,Total 10.3 mg/dL (8.5-10.1); Chloride 105 mmol/L (98-107); Cholesterol 159 mg/dL (200); Creatinine, Serum 1.68 mg/dL (0.70-1.30); EST Glomerular Filtration Rate 43 mL/min (>60); Est Glom Filt Rate - Afr Amer 52 mL/min (>60); Globulin 4.3 g/dL (2.2-4.2); Glucose 144 mg/dL (74-106); High Density Lipoprotein 44 mg/dL; PSA,Total - Annual Screen 0.33 ng/mL (0.00-4.00); Potassium 4.1 mmol/L (3.5-5.1); Protein, Total 7.9 g/dL (6.4-8.2); Sodium Level 138 mmol/L (136-145); Triglycerides 126 mg/dL; Very Low Density Lipoprotein 25 mg/dL (5-40)
[2022-10-11 13:47] LABS: Microalbumin,Random Urine 76.8 mg/L (NO RANGE EST.); Microalbumin:Creatinine Ratio 28.3 mg/g CRE (<30 mg/g CRE)
== END | disposition home or self-care (01) ==
LOC: BIMLAB 10:46
PROVIDERS: PCP Internal Medicine; Referring Provider Internal Medicine; Visit Provider Internal Medicine
DX: E11.69 Type 2 diabetes mellitus with other specified complication (principal); E11.22 Type 2 diabetes mellitus with diabetic chronic kidney disease; Z79.4 Long term (current) use of insulin; N18.31 Chronic kidney disease, stage 3a; E78.5 Hyperlipidemia, unspecified; N40.0 Benign prostatic hyperplasia without lower urinary tract symptoms; Z12.5 Encounter for screening for malignant neoplasm of prostate
CPT/HCPCS: 36415; 80053; 80061; 82043; 82570; 84153; 85025; G0103

== ENCOUNTER → 2022-12-05 | Outpatient (CLI) | payer MEDICARE, OTHER, SELFPAY ==
--- NOTE | 2022-12-05 14:51 | CDU_ITS ---
Reason For Study: carotid stenosis Rt. Velocities/BP Lt. Velocities/BP Prox CCA 51.3/18.2 cm/sec. Prox CCA 97.4/24.9 cm/sec. Mid CCA 46.6/18.2 cm/sec. Mid CCA 109.7/32.3 cm/sec. Dist CCA 44.7/16.3 cm/sec. Dist CCA 106.0/29.8 cm/sec. Prox ICA 121.1/38.9 cm/sec. Prox ICA 141.2/35.3 cm/sec. Mid ICA 132.1/42.6 cm/sec. Mid ICA 92.5/29.8 cm/sec. Dist ICA 97.4/33.4 cm/sec. Dist ICA 102.3/32.3 cm/sec. Rt. ICA/CCA = 2.8. Lt. ICA/CCA = 1.3. Prox ECA 38.1/5.0 cm/sec. Prox ECA 122.9/29.6 cm/sec. Rt. Vert. 53.2/19.2 cm/sec. Lt. Vert. 29.6/7.8 cm/sec. Right Extracranial There is homogeneous, smooth atherosclerotic plaque noted in the right common carotid artery. There is homogeneous, smooth atherosclerotic plaque noted in the right internal carotid artery. There is heterogeneous, irregular atherosclerotic plaque noted in the right external carotid artery. Unable to obtain flow in the proximal ECA. Flow is noted in the distal ECA. Antegrade flow is noted in the right vertebral artery. Left Extracranial There is homogeneous, smooth atherosclerotic plaque noted in the left common carotid artery. There is heterogeneous, irregular atherosclerotic plaque noted in the left internal carotid artery. There is heterogeneous, irregular atherosclerotic plaque noted in the left external carotid artery. Antegrade flow is noted in the left vertebral artery. Procedure Carotid Duplex [id number]. This is a Carotid Duplex examination using B-mode, color flow and specral Doppler. The exam was diagnostic. Exam performed in department. VL/Carotid Duplex Ultrasound Interpretation Summary Postoperative changes of the right carotid bulb and proximal internal carotid a rtery with smooth plaque identified and 50 to 69% stenosis. Less than 50% stenosis right external carotid artery Irregular calcific plaque at the proximal left internal carotid artery with 50 to 69% stenosis Less than 50% stenosis left external carotid artery Patent and antegrade vertebral arteries bilaterally Findings suggest progression of stenosis involving the right internal carotid a rtery from previous less than 50% stenosis on December 06, 2021 Ordering Physician: Hai Schmid Performed By: Monico Marroquin RVT
== END | disposition home or self-care (01) ==
LOC: CVS 14:50
PROVIDERS: PCP Internal Medicine; Referring Provider Surgery; Visit Provider Surgery
DX: I65.23 Occlusion and stenosis of bilateral carotid arteries (principal)
CPT/HCPCS: 93880

== ENCOUNTER → 2023-02-14 | Outpatient (CLI) | payer MEDICARE, OTHER, SELFPAY ==
--- NOTE | 2023-02-14 14:55 | EKG12_ITS ---
Test Reason : PREOP Blood Pressure : / mmHG Vent. Rate : 062 BPM Atrial Rate : 062 BPM P-R Int : 210 ms QRS Dur : 094 ms QT Int : 406 ms P-R-T Axes : 007 -05 036 degrees QTc Int : 412 ms Sinus rhythm with 1st degree A-V block Inferior infarct , age undetermined Abnormal ECG Confirmed by EDWIN CACERES, GRISELDA ([id number]), newspaper photo editor ALVERTO CELESTIN ([id number]) on 02/15/2023 9:57:19 AM Referred By: Severino Hylton Confirmed By:GRISELDA PINEDA MD
== END | disposition home or self-care (01) ==
PROVIDERS: PCP Internal Medicine; Referring Provider Internal Medicine; Visit Provider Internal Medicine
DX: I10 Essential (primary) hypertension (principal)
CPT/HCPCS: 93005

== ENCOUNTER → 2023-04-27 | Outpatient (CLI) | payer MEDICARE, OTHER, SELFPAY ==
[2023-04-27 12:23] LABS: Absolute Lymphocyte Count 1.77 X10^3/uL (0.83-4.51); Absolute Neutrophil Count 4.4 X10^3/uL (2.0-7.7); Basophil# 0.06 X10^3/uL; Basophil% 0.9 % (0-1); Eosinophils% 1.5 % (0-5); Hematocrit 42.4 % (40-54); Hemoglobin 13.9 g/dL (13.0-16.5); Lymphocyte # 1.77 X10^3/ul (0.83-4.51); Lymphocyte % 25.9 % (19-41); Mean Corp Hgb Conc 32.8 g/dL (32-36); Mean Corpuscular Hgb 28.4 pg (27.0-32.0); Mean Corpuscular Volume 86.5 fL (80-94); Monocyte# 0.53 X10^3/uL; Monocyte% 7.7 % (0-10); NRBC Flagged by Analyzer 0 % (0-5); Neutrophil # 4.36 X10^3/uL (2.7-7.7); Neutrophil % 63.7 % (47-70); Platelet Count 258 K/mm3 (150-450); RBC Distribution Width CV 13.3 % (11.6-14.6); RBC Distribution Width SD 41.8 fl (35.1-43.9); White Blood Count 6.8 K/mm3 (4.4-11.0)
[2023-04-27 12:34] LABS: ALB/GLOB Ratio 0.9 RATIO (0.9-2.4); AST(SGOT) 15 U/L (15-37); Alanine Aminotransfer ALT/SGPT 21 U/L (16-61); Albumin, Serum 3.5 g/dL (3.2-5.0); Alkaline Phosphatase 67 U/L (45-117); Anion Gap 6 (5-15); BUN 25 mg/dL (7-18); BUN/Creat Ratio 16.2 RATIO (10-20); Calcium,Total 8.9 mg/dL (8.5-10.1); Chloride 107 mmol/L (98-107); Creatinine, Serum 1.54 mg/dL (0.70-1.30); EST Glomerular Filtration Rate 47 mL/min (>60); Est Glom Filt Rate - Afr Amer 57 mL/min (>60); Glucose 85 mg/dL (74-106); Potassium 4.3 mmol/L (3.5-5.1); Protein, Total 7.5 g/dL (6.4-8.2); Sodium Level 139 mmol/L (136-145)
== END | disposition home or self-care (01) ==
LOC: BIMLAB 10:16
PROVIDERS: PCP Internal Medicine; Referring Provider Internal Medicine; Visit Provider Internal Medicine
DX: I10 Essential (primary) hypertension (principal); E11.69 Type 2 diabetes mellitus with other specified complication; Z79.4 Long term (current) use of insulin
CPT/HCPCS: 36415; 80053; 85025

== ENCOUNTER → 2023-06-21 | Outpatient (CLI) | payer MEDICARE, OTHER, SELFPAY ==
--- NOTE | 2023-06-21 14:52 | CDU_ITS ---
Reason For Study: carotid stenosis Rt. Velocities/BP Lt. Velocities/BP Prox CCA 41.9/10.7 cm/sec. Prox CCA 103.6/23.4 cm/sec. Mid CCA 42.8/13.5 cm/sec. Mid CCA 113.5/28.9 cm/sec. Dist CCA 47.5/16.3 cm/sec. Dist CCA 97.1/22.3 cm/sec. Prox ICA 135.7/48.0 cm/sec. Prox ICA 130.2/33.4 cm/sec. Mid ICA 182.9/68.7 cm/sec. Mid ICA 104.7/38.9 cm/sec. Dist ICA 191.6/38.0 cm/sec. Dist ICA 90.0/27.9 cm/sec. Rt. ICA/CCA = 4.5. Lt. ICA/CCA = 1.1. Prox ECA 37.1/5.0 cm/sec. Prox ECA 135.7/26.1 cm/sec. Rt. Vert. 42.1/12.4 cm/sec. Lt. Vert. 31.5/9.7 cm/sec. Right Extracranial There is homogeneous, smooth atherosclerotic plaque noted in the right common carotid artery. There is homogeneous, smooth atherosclerotic plaque noted in the right internal carotid artery. There is heterogeneous, irregular atherosclerotic plaque noted in the right external carotid artery. Unable to obtain flow in the proximal ECA. Flow is noted in the distal ECA. Antegrade flow is noted in the right vertebral artery. Left Extracranial There is homogeneous, smooth atherosclerotic plaque noted in the left common carotid artery. There is heterogeneous, irregular atherosclerotic plaque noted in the left internal carotid artery. There is heterogeneous, irregular atherosclerotic plaque noted in the left external carotid artery. Antegrade flow is noted in the left vertebral artery. Procedure Carotid Duplex [id number]. This is a Carotid Duplex examination using B-mode, color flow and specral Doppler. The exam was diagnostic. Exam performed in department. VL/Carotid Duplex Ultrasound Interpretation Summary Postoperative changes of the right carotid bulb and proximal internal carotid a rtery with smooth plaque identified and 50 to 69% stenosis. Possibly progression is noted in the right internal carotid artery but no dominguez e in stenosis category since the previous examination of December 05, 2022 Less than 50% stenosis right external carotid artery Irregular calcific plaque at the proximal left internal carotid artery with 50 to 69% stenosis Less than 50% stenosis left external carotid artery Patent and antegrade vertebral arteries bilaterally Ordering Physician: Hai Schmid Performed By: Monico Marroquin RVT
== END | disposition home or self-care (01) ==
LOC: CVS 14:51
PROVIDERS: PCP Internal Medicine; Referring Provider Surgery; Visit Provider Surgery
DX: I65.23 Occlusion and stenosis of bilateral carotid arteries (principal)
CPT/HCPCS: 93880

== ENCOUNTER → 2023-10-18 | Outpatient (CLI) | payer MEDICARE, OTHER, SELFPAY ==
[2023-10-18 10:13] LABS: Absolute Lymphocyte Count 1.66 X10^3/uL (0.83-4.51); Absolute Neutrophil Count 4.3 X10^3/uL (2.0-7.7); Basophil# 0.05 X10^3/uL; Basophil% 0.8 % (0-1); Eosinophil# 0.14 X10^3/uL; Eosinophils% 2.1 % (0-5); Hematocrit 41.7 % (40-54); Hemoglobin 13.5 g/dL (13.0-16.5); Lymphocyte # 1.66 X10^3/ul (0.83-4.51); Lymphocyte % 24.9 % (19-41); Mean Corp Hgb Conc 32.4 g/dL (32-36); Mean Corpuscular Hgb 27.7 pg (27.0-32.0); Mean Corpuscular Volume 85.6 fL (80-94); Mean Platelet Vol. 8.5 fl (6.2-12.0); Monocyte# 0.51 X10^3/uL; Monocyte% 7.7 % (0-10); NRBC Flagged by Analyzer 0 % (0-5); Neutrophil # 4.29 X10^3/uL (2.7-7.7); Neutrophil % 64.3 % (47-70); Platelet Count 258 K/mm3 (150-450); RBC Distribution Width CV 13.5 % (11.6-14.6); RBC Distribution Width SD 42.1 fl (35.1-43.9); Red Blood Count 4.87 M/mm3 (4.6-6.2); White Blood Count 6.7 K/mm3 (4.4-11.0)
[2023-10-18 10:39] LABS: ALB/GLOB Ratio 0.8 RATIO (0.9-2.4); AST(SGOT) 13 U/L (15-37); Alanine Aminotransfer ALT/SGPT 22 U/L (16-61); Albumin, Serum 3.4 g/dL (3.2-5.0); Alkaline Phosphatase 67 U/L (45-117); Anion Gap 2 (5-15); BUN 28 mg/dL (7-18); BUN/Creat Ratio 15.9 RATIO (10-20); Calcium,Total 9.1 mg/dL (8.5-10.1); Chloride 111 mmol/L (98-107); Cholesterol 131 mg/dL (200); Creatinine, Serum 1.76 mg/dL (0.70-1.30); EST Glomerular Filtration Rate 41 mL/min (>60); Est Glom Filt Rate - Afr Amer 49 mL/min (>60); Globulin 4.1 g/dL (2.2-4.2); Glucose 130 mg/dL (74-106); High Density Lipoprotein 41 mg/dL; Protein, Total 7.5 g/dL (6.4-8.2); Sodium Level 141 mmol/L (136-145); Triglycerides 94 mg/dL; Very Low Density Lipoprotein 19 mg/dL (5-40)
== END | disposition home or self-care (01) ==
LOC: LAB 09:49
PROVIDERS: PCP Internal Medicine; Referring Provider Internal Medicine; Visit Provider Internal Medicine
DX: E11.9 Type 2 diabetes mellitus without complications (principal); Z79.4 Long term (current) use of insulin
CPT/HCPCS: 36415; 80053; 80061; 85025

== ENCOUNTER → 2024-02-04 | Outpatient (CLI) | payer MEDICARE, OTHER, SELFPAY ==
[2024-02-04 09:35] LABS: Anion Gap 4 (5-15); BUN 29 mg/dL (7-18); BUN/Creat Ratio 16.2 RATIO (10-20); Calcium,Total 9.3 mg/dL (8.5-10.1); Chloride 110 mmol/L (98-107); Creatinine, Serum 1.79 mg/dL (0.70-1.30); EST Glomerular Filtration Rate 40 mL/min (>60); Est Glom Filt Rate - Afr Amer 48 mL/min (>60); Glucose 151 mg/dL (74-106); PSA,Total - Annual Screen 0.37 ng/mL (0.00-4.00); Potassium 3.9 mmol/L (3.5-5.1); Sodium Level 141 mmol/L (136-145)
[2024-02-04 11:20] LABS: Hemoglobin A1c 7.7 % (3.8-5.6)
== END | disposition home or self-care (01) ==
LOC: LAB 08:24
PROVIDERS: PCP Internal Medicine; Referring Provider Internal Medicine; Visit Provider Internal Medicine
DX: Z12.5 Encounter for screening for malignant neoplasm of prostate (principal); E11.69 Type 2 diabetes mellitus with other specified complication; Z79.4 Long term (current) use of insulin; I10 Essential (primary) hypertension
CPT/HCPCS: 36415; 80048; 83036; 84153; G0103

== ENCOUNTER 2024-03-06 09:30 | Emergency (ER) | payer MEDICARE, OTHER, SELFPAY ==
[2024-03-06 09:30] VITALS: BP 158/88; PULSE 63; RESP 14; TEMP 36.6; O2SAT 99; BMI 30.7
--- NOTE | 2024-03-06 10:15 | ED.RN ---
pt states he has been experiencing vertigo-like symptoms for several days. states symptoms are worse in the morning and seem to somewhat subside throughout the day. did have some vomiting yesterday, none today although he feels extremely nauseous. states symptoms are more severe when ambulating, it feels like I am going to pass out when I stand up denies pain or migraine symptoms.
--- NOTE | 2024-03-06 10:38 | CT_ITS ---
STUDY: CT BRAIN WITHOUT CONTRAST REASON FOR EXAM: Male, 73 years old. Dizziness. Nausea. RADIATION DOSAGE (If Supplied By Facility): CTDIvol = ( 44.99 ) mGy, DLP = ( 796.11 ) mGycm TECHNIQUE: Transaxial CT imaging of the brain was performed without administration of intravenous contrast material. Individualized dose optimization techniques were used for this CT. COMPARISON: No relevant priors. FINDINGS: Normal soft tissue structures. Normal calvarium. There is mild cerebral atrophy with widening of the extra-axial spaces and ventricular dilatation. Focal area of decreased attenuation in the peripheral lateral aspect of the right occipital lobe. This may represent an old ischemic insult. There are areas of decreased attenuation within the white matter tracts of the supratentorial brain, consistent with microvascular disease changes. Normal basal ganglia and thalami. Normal brainstem. Normal cerebellum. There is no intracranial hemorrhage. There are no findings of an acute ischemic infarction. Atherosclerotic calcification of the cavernous portions of the internal carotid arteries as well as the right vertebral artery. Normal visualized paranasal sinuses. Nasal septal deviation towards the left side of the midline. CT/Brain/Head without Contrast IMPRESSION: Chronic involutional changes of the brain. Focal area of encephalomalacia in the posterior lateral aspect of the right occipital lobe suggestive of old ischemic insult. Electronically Signed: Jude Aguayo MD at 11:25 EDT ,
--- NOTE | 2024-03-06 10:39 | ED.VIS.STROK ---
HPI History of Present Illness Chief Complaint: Dizziness Informant: patient and spouse/S.O. Narrative Narrative: 73-year-old male known to myself as he is intubated with a hospital. Patient reports vertiginous-like symptoms over the past several mornings. States that typically he will get out of bed by rolling to the right and sitting up. Hallucinates generally get worse. States during the night he can feel himself spinning, when he rolls to the right. As the day goes on he generally starts to feel better. He notes associated nausea. He denies headache. No arm or leg symptoms. Patient is never been diagnosed with vertigo or M?ni?re's disease. He denies any chronic tinnitus or ear symptoms currently. He notes that things seem to be spinning fast to the left. [facility] Medical History BPH (benign prostatic hyperplasia) History of Mohs micrographic surgery for skin cancer Preoperative evaluation to rule out surgical contraindication Osteoarthritis Obesity Health care maintenance Overweight (BMI 25.0-29.9) Diabetes Trigger finger of right hand Carotid stenosis, bilateral Right hip pain Chronic kidney disease, stage III (moderate) Hyperlipidemia Type 2 diabetes mellitus Vision problems Skin cancer GERD (gastroesophageal reflux disease) High cholesterol HTN (hypertension) Seasonal allergies Arthritis Home Medications ?Medication ?Instructions ?Recorded ?Last Taken ?Type Pen needles 0 % .Route .MEDSUPPLY Check with 12/01/20 Unknown History primary doctor blood-glucose meter 12/01/20 Unknown History blood sugar diagnostic #300 ea 08/12/21 Unknown Rx blood sugar diagnostic (FreeStyle #300 ea 12/11/22 Unknown Rx Test strips) aspirin 81 mg tablet,delayed 325 mg PO DAILY HDL 01/10/23 Unknown History release lisinopril 10 1 tab PO BID HTN #180 tabs 04/25/23 Unknown Rx mg-hydrochlorothiazide 12.5 mg tablet dulaglutide 3 mg/0.5 mL 4.5 mg subcut QWEEK 04/27/23 Unknown History subcutaneous pen injector glimepiride 2 mg tablet 2 mg PO BID #180 tabs 05/21/23 Unknown Rx rosuvastatin 40 mg tablet 40 mg PO DAILY HDL #90 tabs 06/25/23 Unknown Rx pantoprazole 40 mg tablet,delayed 40 mg PO QDAY Check with primary 07/11/23 Unknown Rx release doctor #90 tabs insulin degludec 200 unit/mL (3 16 unit subcut DAILY 11/02/23 Unknown History mL) subcutaneous pen (Tresiba FlexTouch U-200 insulin) insulin aspart 15 unit subcut TID 02/15/24 Unknown History (niacinamide)(U-100) 100 unit/mL(3 mL) subcutaneous pen (Fiasp FlexTouch U-100 Insulin) amlodipine 5 mg tablet 5 mg PO DAILY #90 tabs 03/05/24 Unknown Rx meclizine 50 mg tablet (Antivert) 50 mg PO DAILY PRN dizziness #10 03/06/24 Unknown Rx tabs ondansetron 4 mg disintegrating 4 mg PO Q6H PRN PRN Nausea #10 tabs 03/06/24 Unknown Rx tablet Allergy/AdvReac Type Severity Reaction Status Date / Time Penicillins Allergy Severe Rash Verified 03/06/24 09:31 Family History Mother Breast cancer Myocardial infarction Hypertension Diabetes Heart disease CAD (coronary artery disease) Father Myocardial infarction Surgical History H/O eye surgery History of right-sided carotid endarterectomy History of esophageal dilatation History of esophagogastroduodenoscopy (EGD) Social History Smoking Status: Never smoker second hand exposure: No alcohol intake: current alcohol intake frequency: a few times a month Alcohol type: beer substance use type: does not use caffeine: Yes what type of physical activity do you participate in: aerobics and weight training frequency: 3-4 times per week ROS ROS ED Constitutional Constitutional ED: Denies chills, fever(s) or weight loss Eyes Eyes: Denies change in vision or diplopia ENT ENT ED: Denies ear pain, rhinorrhea or sore throat Cardiovascular Cardiovascular: Denies chest pain, orthopnea, palpitations or racing heartbeat Respiratory/Chest Respiratory/Chest: Denies cough, dyspnea or orthopnea Gastrointestinal Gastrointestinal: Reports nausea; Denies abdominal pain, diarrhea or vomiting Genitourinary Genitourinary ED: Denies dysuria, hematuria or urinary frequency Musculoskeletal Musculoskeletal: Denies arthralgias or myalgias Integumentary Denies abscess or rash Neurologic Neurologic: Reports other Details: Room spinning to the left ; Denies headache(s), paresthesias or weakness Psychiatric Psychiatric: Denies anxiety, depression, suicidal ideation or suicidal thoughts Endocrine Endocrinology: Denies polydipsia, polyphagia or polyuria Allergic/Immunologic Allergic/Immunologic ED: Denies mouth swelling, tongue swelling or urticaria EXAM Physical Exam Const Vital Signs: 03/06/24 09:30 03/06/24 11:30 Temperature 97.9 F Temperature Source Temporal Pulse Rate 63 65 Respiratory Rate 14 16 Blood Pressure 158/88 H 145/82 H Blood Pressure Mean 111 103 Pulse Ox 99 96 Oxygen Delivery Method Room Air Room Air Positive well nourished and well developed General Appearance ED: well developed HEENT Reports normocephalic, head/scalp atraumatic and moist mucous membranes Eyes PERRL and EOMs intact bilaterally Neck no lymphadenopathy, supple and no JVD Resp normal respiratory effort and clear to auscultation bilaterally Cardio regular rate, regular rhythm and no murmurs GI normal to inspection, nondistended, normoactive bowel sounds and non-tender Palpation: soft Back/Spine no CVA tenderness and normal ROM Extremity normal to inspection General Extremety ED: Negative for edema General Extremity: Negative for edema Neuro oriented x3 and CN's II-XII intact bilaterally Sensorium / Orientation: alert Motor Exam: strength 5/5 throughout Psych mental status grossly normal Mood & Affect: Negative for depressed or tearful Skin no rashes or lesions noted and no wounds NIHSS NIHSS Initial: 1a Level of Consciousness: 0 1b LOC Questions (Score 2 if aphasic/stupor): 0 1c LOC Commands (Only score 1st attempt): 0 2 Best Gaze (If aphasic, use reflexive mvmts.): 0 3 Visual: 0 4 Facial Palsy: 0 5 Motor Arm Right (UN = amputation/fusion): 0 5 Motor Arm Left: 0 6 Motor Leg Right: 0 6 Motor Leg Left: 0 7 Limb ataxia (Only + if out of proportion): 0 8 Sensory (Aphasia/stupor=0 or 1, coma=2): 0 9 Best Language: 0 10 Dysarthria (mute, coma=2, intubated=UN): 0 11 Extinction and Inattention (only scored if +): 0 Total Score: 0 MDM MDM MDM Narrative Medical decision making narrative: Differential diagnosis includes but not limited to dehydration, anemia, electrolyte abnormalities, peripheral vertigo, central vertigo, brain tumor, ICP. Patient received a dose of Antivert and Zofran as well as IV fluids.. Hemoglobin 12.9 with white count of 6.9 platelet count of 225. BMP shows chronic kidney disease with a creatinine of 1.72. BUN of 32. CT of the brain demonstrates no acute process. Old infarct noted. Repeat examination the patient is feeling improved. He is able to read his phone. He was given a dose of home vertigo self positioning techniques. I will write for Antivert and Zofran at home. Follow-up with primary care for History & Record Review Discussion w/independent historian: Patient and Significant other Additional record(s) reviewed:: Prior ED visit and Prior labs Lab Data Attestation: I reviewed the patient's lab results. Labs: Laboratory Results - last 24 hr 03/06/24 03/06/24 03/06/24 10:55 10:55 11:15 WBC Cancelled 6.9 Corrected WBC Cancelled RBC Cancelled 4.55 L Hgb Cancelled 12.9 L Hct Cancelled 38.9 L MCV Cancelled 85.5 MCH Cancelled 28.4 MCHC Cancelled 33.2 RDW Std Deviation Cancelled 41.8 RDW Coeff of Alyssia Cancelled 13.4 Plt Count Cancelled 225 MPV Cancelled 9.0 Immature Gran % (Auto) Cancelled 0.300 Neut % (Auto) Cancelled 70.2 H Lymph % (Auto) Cancelled 20.3 [place] % (Auto) Cancelled 7.9 Eos % (Auto) Cancelled 0.7 Baso % (Auto) Cancelled 0.6 Absolute Neuts (auto) Cancelled 4.9 Absolute Lymphs (auto) Cancelled 1.41 Total Counted Cancelled Neutrophils % (Manual) Cancelled Band Neutrophils % Cancelled Lymphocytes % (Manual) Cancelled Monocytes % (Manual) Cancelled Eosinophils % (Manual) Cancelled Basophils % (Manual) Cancelled Metamyelocytes % Cancelled Myelocytes % Cancelled Promyelocytes % Cancelled Blast Cells % Cancelled Plasma Cell % (Manual) Cancelled Other Cells % Cancelled Nucleated RBC % Cancelled 0 Nucleated RBCs/100 WBC Cancelled Differential Comment Cancelled Diff Path Review Cancelled Hypersegmented Neuts Cancelled Atypical Lymphocytes Cancelled Reactive Lymphocytes Cancelled Smudge Cells Cancelled Toxic Granulation Cancelled Toxic Vacuolation Cancelled Dohle Bodies Cancelled Kirk Rods Cancelled Platelet Estimate Cancelled Plt Morphology Comment Cancelled RBC Morphology Cancelled Cancelled Polychromasia Cancelled Hypochromasia Cancelled Basophilic Stippling Cancelled Anisocytosis Cancelled Microcytosis Cancelled Macrocytosis Cancelled Spherocytes Cancelled Sickle Cells Cancelled Target Cells Cancelled Tear Drop Cells Cancelled Ovalocytes Cancelled Stomatocytes Cancelled [place] Bodies Cancelled [place] Cells Cancelled Bite Cells Cancelled Crenated Cell Cancelled Acanthocytes (Spur) Cancelled Rouleaux Cancelled Schistocytes Cancelled Sodium 137 Potassium 4.3 Chloride 106 Carbon Dioxide 27.0 Anion Gap 4 L BUN 32 H Creatinine 1.72 H Estim Creat Clear Calc 42.63 Est GFR (MDRD) Af Amer 50 L Est GFR (MDRD) Non-Af 42 L BUN/Creatinine Ratio 18.6 Glucose 154 H Calcium 9.0 Total Bilirubin 0.40 AST 36 ALT 25 Alkaline Phosphatase 65 Total Protein 7.4 Albumin 3.2 Globulin 4.2 Albumin/Globulin Ratio 0.8 L Radiography Diagnostic Testing: Clinical Impression(s) from Imaging Studies Brain CT 03/06/24 10:38 IMPRESSION: Chronic involutional changes of the brain. Focal area of encephalomalacia in the posterior lateral aspect of the right occipital lobe suggestive of old ischemic insult. Electronically Signed: Jude Aguayo MD at 11:25 EDT , Discharge Plan Triage Chief Complaint: Dizziness ED Provider: jA Sharif Dx/Rx/DC Orders Clinical Impression: Vertigo, Nausea, Type 2 diabetes mellitus Instructions: ED Vertigo, Unspecified Prescriptions: New meclizine [Antivert] 50 mg tablet 50 mg PO DAILY PRN (Reason: dizziness) Qty: 10 0RF ondansetron 4 mg tablet,disintegrating 4 mg PO Q6H PRN PRN (Reason: Nausea) Qty: 10 0RF No Action dulaglutide 3 mg/0.5 mL pen injector 4.5 mg subcut QWEEK insulin degludec [Tresiba FlexTouch U-200] 200 unit/mL (3 mL) insulin pen 16 unit subcut DAILY Fiasp FlexTouch U-100 Insulin 100 unit/mL (3 mL) insulin pen 15 unit subcut TID Rx Instructions: 17 units in AM; 16 units at Lunch; 17 at dinnertime (DME) blood-glucose meter 1 EACH kit See Rx Instructions .Route .MEDSUPPLY Rx Instructions: check blood glucose daily for type 2 DM Pen needles 0 % .Route .MEDSUPPLY Rx Instructions: BID aspirin 81 mg tablet,delayed release (DR/EC) 325 mg PO DAILY (DME) blood sugar diagnostic Strip 1 % .Route .MEDSUPPLY Qty: 300 3RF Rx Instructions: lancets-As directed with device up to 3 times daily (DME) FreeStyle Test Strip See Rx Instructions .ROUTE .MEDSUPPLY Qty: 300 3RF Rx Instructions: use to test blood sugar 3 times a day Dx E11 Diabetes lisinopril-hydrochlorothiazide 10-12.5 mg tablet 1 tab PO BID Qty: 180 3RF glimepiride 2 mg tablet 2 mg PO BID Qty: 180 2RF rosuvastatin 40 mg tablet 40 mg PO DAILY Qty: 90 3RF pantoprazole 40 mg tablet,delayed release (DR/EC) 40 mg PO QDAY Qty: 90 3RF Rx Instructions: dm amlodipine 5 mg tablet 5 mg PO DAILY Qty: 90 3RF Primary Care Provider: Severino Hylton Referrals: Severino Hylton MD [Primary Care Provider] - As Needed Print Language: Turkmen Disposition Disposition: Home, Self Care
[2024-03-06] MEDS: Meclizine HCl 25 MG Tablet PO (10:51)
[2024-03-06] MEDS: 0.9% Normal Saline (1000mL) 1,000 ML 1000 ML IV (10:52)
--- NOTE | 2024-03-06 11:07 | NURSING ---
PER LAB [facility]. THEY WILL PRINT A STICKER
[2024-03-06 11:22] LABS: ALB/GLOB Ratio 0.8 RATIO (0.9-2.4); AST(SGOT) 36 U/L (15-37); Alanine Aminotransfer ALT/SGPT 25 U/L (16-61); Albumin, Serum 3.2 g/dL (3.2-5.0); Alkaline Phosphatase 65 U/L (45-117); Anion Gap 4 (5-15); BUN 32 mg/dL (7-18); BUN/Creat Ratio 18.6 RATIO (10-20); Chloride 106 mmol/L (98-107); Creatinine, Serum 1.72 mg/dL (0.70-1.30); EST Glomerular Filtration Rate 42 mL/min (>60); Est Glom Filt Rate - Afr Amer 50 mL/min (>60); Estimated Creatinine Clearance 42.63 ml/min; Globulin 4.2 g/dL (2.2-4.2); Glucose 154 mg/dL (74-106); Potassium 4.3 mmol/L (3.5-5.1); Protein, Total 7.4 g/dL (6.4-8.2); Sodium Level 137 mmol/L (136-145)
[2024-03-06 11:26] LABS: Absolute Lymphocyte Count 1.41 X10^3/uL (0.83-4.51); Absolute Neutrophil Count 4.9 X10^3/uL (2.0-7.7); Basophil# 0.04 X10^3/uL; Basophil% 0.6 % (0-1); Eosinophil# 0.05 X10^3/uL; Eosinophils% 0.7 % (0-5); Hematocrit 38.9 % (40-54); Hemoglobin 12.9 g/dL (13.0-16.5); Lymphocyte # 1.41 X10^3/ul (0.83-4.51); Lymphocyte % 20.3 % (19-41); Mean Corp Hgb Conc 33.2 g/dL (32-36); Mean Corpuscular Hgb 28.4 pg (27.0-32.0); Mean Corpuscular Volume 85.5 fL (80-94); Monocyte# 0.55 X10^3/uL; Monocyte% 7.9 % (0-10); NRBC Flagged by Analyzer 0 % (0-5); Neutrophil # 4.86 X10^3/uL (2.7-7.7); Neutrophil % 70.2 % (47-70); Platelet Count 225 K/mm3 (150-450); RBC Distribution Width CV 13.4 % (11.6-14.6); RBC Distribution Width SD 41.8 fl (35.1-43.9); Red Blood Count 4.55 M/mm3 (4.6-6.2); White Blood Count 6.9 K/mm3 (4.4-11.0)
[2024-03-06 11:30] VITALS: BP 145/82; PULSE 65; RESP 16; O2SAT 96
[2024-03-06 12:41] VITALS: BP 142/76; PULSE 65; RESP 16; TEMP 36.4; O2SAT 97
== END 2024-03-06 12:43 | disposition home or self-care (01) ==
PROVIDERS: Emergency Provider Emergency Medicine; PCP Internal Medicine; Visit Provider Emergency Medicine
DX: R42 Dizziness and giddiness (principal); E11.22 Type 2 diabetes mellitus with diabetic chronic kidney disease; N18.30 Chronic kidney disease, stage 3 unspecified
CPT/HCPCS: 70450; 80053; 85025; 96360; 99282; J7030; A4216

== ENCOUNTER → 2024-06-18 | Outpatient (CLI) | payer MEDICARE, OTHER, SELFPAY ==
--- NOTE | 2024-06-18 12:25 | RAD_ITS ---
STUDY: X-RAY - LEFT KNEE REASON FOR EXAM: Male, 74 years old. Left knee pain. TECHNIQUE: 4 view(s) of the knee. COMPARISON: None. FINDINGS: Osteopenia. Superior patellar spur. Mild tricompartmental arthrosis without significant osteophyte formation. Small joint effusion. RAD/Knee 4 or More Views IMPRESSION: Osteopenia with patellar spurring tricompartmental arthrosis with small effusion. Electronically Signed: Archie Moreno MD at 12:48 EDT ,
== END | disposition home or self-care (01) ==
LOC: RAD 12:22
PROVIDERS: PCP Internal Medicine; Referring Provider Internal Medicine; Visit Provider Internal Medicine
DX: M25.562 Pain in left knee (principal)
CPT/HCPCS: 73564

== ENCOUNTER 2024-07-28 11:00 | Outpatient (RCR) | payer MEDICARE, OTHER, SELFPAY ==
--- NOTE | 2024-06-30 14:26 | HP.PTEVAL_ITS ---
Patient's Visit Information Visit Information Visit Information: REJI JUSTICE is a 74 year old M referred to Physical Therapy by Dr. Severino Hylton MD with a diagnosis of L knee pain. Date of Evaluation: 06/30/24 Physical Therapist: BACILIO Tafoya Visit Plan Frequency: 2x /Week Duration: 4 Weeks Plan: 2X/ week for 4-8 weeks for biking to decrease L knee effusion, L hip and knee strength, core strength, functional activities with HEP HEP: SLR, S/L hip abd, bridge, seated heel slides Subjective Subjective: Pt has a lot of pain in his L knee. He had an X-ray. He also smacked his L knee with a sledge when taking out a hartman. He is in pain with sitting and standing. It is a sore. At night it stiffens and wakes him up. In the morning he can hardly but any weight until he moves along. Worse time is morning and evenings. He does take some IBPROF until it wears off. It hurts on the stairs and worse going up. He has some pain getting up out of a chair. He just retired and was having knee pain back then but now it is getting worse. He reports no swelling. Pain L knee pain: Pain Intensity (Out of 10): 5 Pain Intensity Range: 7 and 8 Objective Objective: Gait: walks with decrease stance time on the L LE. Pt is able to walk on heels and toes. LE MMT: R hip flex 11 and L 10 R knee ext 24.2 and L 20.2 R knee flex 11.8 and L 10.9 R hip abd 10 and L 10.6 R knee flex 130 and L 120 and -2 degrees from full extension Girth measurements: R 34 and L 36.1 infrapatellar and Suprapatellar R 38 and L 38 Pt is able to do 3/4 normal ROM bridge Tight B HS and hip flexors Balance/Special Test Scores Lower Extremity Functional Score: 40 Goals Goal 1:: I HEP Goal Time Frame: 6-8 Weeks Goal 2:: Increase L knee flexion to 125 degrees flexion (R to 130 at eval) Goal Time Frame: 6-8 Weeks Goal 3:: Be able to walk and go up and down steps with 50% less pain Goal Time Frame: 6-8 Weeks Goal 4:: Increase hip flexor and Hamstring flexibility Goal Time Frame: 6-8 Weeks Rehabilitation Potential Rehabilitation Potential: Good Anticipated Interventions Patient/Client Instruction: Educate patient on: Condition and Plan of Care For the Purpose of:: To decrease pain, To decrease swelling/inflammation, To increase ROM, To improve nutrient delivery to tissue, To increase oxygenation perfusion, To improve muscle performance and motor function, To improve ability to perform ADL's, To increase tolerance to activity/condition/position, To improve performance and independence with ADL's, To decrease level of supervision to perform tasks, To improve ability of physical actions for home/community/work/leisure, To improve gait and locomotor functions, To improve health of tissue, To decrease soft tissue restriction and To increase flexibility/ROM Therapeutic Exercise to Include: Strength training, Endurance training, Balance training, Postural training, Flexibilty training, Gait and locomotor training, Neuromotor development, Passive ROM, Active ROM and Dynamic Lumbar Stabilization For the Purpose of:: To decrease pain, To decrease swelling/inflammation, To increase ROM, To improve nutrient delivery to tissue, To increase oxygenation perfusion, To improve muscle performance and motor function, To improve ability to perform ADL's, To increase tolerance to activity/condition/position, To improve performance and independence with ADL's, To decrease level of supervision to perform tasks, To improve ability of physical actions for home/community/work/leisure, To improve gait and locomotor functions, To improve health of tissue, To decrease soft tissue restriction, To increase flexibility/ROM, To improve endurance, To improve balance and To improve safety with gait Functional Training to Include: Gait training For the Purpose of:: To improve gait and locomotor functions Cryotherapy (ice pack, ice massage): Yes Thermo therapy (hot pack): Yes Ultrasound (thermal/non thermal): Yes For the Purpose of:: To decrease pain, To decrease swelling/inflammation, To increase ROM, To improve nutrient delivery to tissue and To improve muscle performance and motor function Text: Thank you for the opportunity to evaluate your patient. For Medicare and Medicare HMO plans, please review the plan of care and approve it. It will need to be FAXED BACK to us at [phone] for Medicare purposes. For Medicare only, by signing this I certify the plan of care. Please let me know if there are questions or concerns regarding this plan of care. Physician Signature: Da te:
--- NOTE | 2024-07-28 11:21 | HP.PTDCSUM ---
Discharge Summary D/C summary: It has been my pleasure to treat REJI JUSTICE referred by Dr. Severino Hylton MD, with the diagnosis of L knee pain for a total of 9 visit(s). Discharge Date: 07/28/24 Please see the following information for a summary of their discharge status. Subjective Subjective: Pt reports that therapy has helped him a lot and that knot is almost gone. He is going to start at his own gym on Sunday and knows what to do. Pain L knee pain: Pain Intensity (Out of 10): 4 Overall Improvement % Improvement: 86 Objective Objective/Function: Increase L knee flexion to 125 degrees flexion (R to 130 at eval) Steps: up and down recip with 1 hand rail with no pain or hesitancy Hamstring and Quad flexibility: improved but still tight B/each Goals Goal 1:: I HEP Goal Progress: Goal Met Goal 2:: Increase L knee flexion to 125 degrees flexion (R to 130 at eval) Goal Progress: Goal Met Goal 3:: Be able to walk and go up and down steps with 50% less pain Goal Progress: Goal Met Goal 4:: Increase hip flexor and Hamstring flexibility Goal Progress: Goal Met Plan Plan: DC PT to Indep gym routine at own gym D/C Information Discharge Comments: DC PT to HEP d/c sentence: If there are questions or concerns regarding this patient's physical therapy, please feel free to call me at [phone]. Thank you for the referral of this patient. Sincerely, Florence Merchant, MPT Balance/Gait/Functional tests Balance/Special Test Scores Lower Extremity Functional Score: 66 Improvement % Improvement: 86
== END 2024-07-28 19:00 | disposition home or self-care (01) ==
LOC: PT 11:00
PROVIDERS: PCP Internal Medicine; Referring Provider Internal Medicine; Visit Provider Internal Medicine
DX: M25.562 Pain in left knee (principal); M19.90 Unspecified osteoarthritis, unspecified site
CPT/HCPCS: 97110; 97161; 97530

== ENCOUNTER 2024-08-26 13:16 | Emergency (ER) | payer MEDICARE, OTHER, SELFPAY ==
[2024-08-26 13:17] VITALS: BP 124/89; PULSE 93; RESP 18; TEMP 36.6; O2SAT 97
--- NOTE | 2024-08-26 13:40 | RAD_ITS ---
STUDY: X-RAY CHEST REASON FOR EXAM: Male, 74 years old. Syncope TECHNIQUE: Single AP portable view of the chest. COMPARISON: 10/28/2020 FINDINGS: The lungs are clear and expanded. There is no demonstrated pleural abnormality. Normal size heart. Normal mediastinum and thierno. Normal visualized pulmonary arteries. Normal visualized aortic arch and descending thoracic aorta. There are diffuse degenerative changes of the visualized thoracic spine. Normal visualized ribs, clavicles, and shoulders. There is no demonstrated abnormality of the visualized soft tissue structures of the upper abdomen. RAD/Chest 1 View (Portable) IMPRESSION: No acute pulmonary process Electronically Signed: Ramiro Linares MD at 14:16 EST ,
--- NOTE | 2024-08-26 13:55 | EX.ED.DYSGE1 ---
HPI History of Present Illness Chief Complaint: Weakness Informant: patient and spouse/S.O. Narrative Narrative: 74-year-old male presenting to the emergency room following a near unresponsive episode. Patient states he had gotten up and went to breakfast with his . He was walking into a store when he felt weakness and paresthesia all over and ended up calling for his falling down to the ground. He states he was not injured when he fell wonders if he lost consciousness briefly he is unsure. He did not have any preceding or afterwards palpitations chest pain shortness of breath. He does note that in the past couple weeks while riding his lawn more he had an episode where he went to get off and his lower left leg felt . He did not have any strength to move his foot and it was numb. He had a couple other episodes where the left arm and hand felt similar. These episodes lasted about 10 minutes and resolved. He denies any headaches visual changes. [facility] Medical History Flu vaccine need Left knee pain BPH (benign prostatic hyperplasia) History of Mohs micrographic surgery for skin cancer Preoperative evaluation to rule out surgical contraindication Osteoarthritis Obesity Health care maintenance Overweight (BMI 25.0-29.9) Diabetes Trigger finger of right hand Carotid stenosis, bilateral Right hip pain Chronic kidney disease, stage III (moderate) Hyperlipidemia Type 2 diabetes mellitus Vision problems Skin cancer GERD (gastroesophageal reflux disease) High cholesterol HTN (hypertension) Seasonal allergies Arthritis Home Medications ?Medication ?Instructions ?Recorded ?Last Taken ?Type Pen needles 0 % .Route .MEDSUPPLY Check with 12/01/20 Unknown History primary doctor blood-glucose meter 12/01/20 Unknown History blood sugar diagnostic #300 ea 08/12/21 Unknown Rx blood sugar diagnostic (FreeStyle #300 ea 12/11/22 Unknown Rx Test strips) dulaglutide 3 mg/0.5 mL 4.5 mg subcut QWEEK 04/27/23 Unknown History subcutaneous pen injector amlodipine 5 mg tablet 5 mg PO DAILY #90 tabs 03/05/24 Unknown Rx meclizine 50 mg tablet (Antivert) 50 mg PO DAILY PRN dizziness #10 03/06/24 Unknown Rx tabs ondansetron 4 mg disintegrating 4 mg PO Q6H PRN PRN Nausea #10 tabs 03/06/24 Unknown Rx tablet glimepiride 2 mg tablet 2 mg PO BID #180 tabs 03/24/24 Unknown Rx lisinopril 10 1 tab PO BID HTN #180 tabs 04/07/24 Unknown Rx mg-hydrochlorothiazide 12.5 mg tablet aspirin 325 mg tablet 325 mg PO DAILY 04/28/24 Unknown History insulin aspart See Rx Instructions subcut TID #60 06/03/24 Unknown Rx (niacinamide)(U-100) 100 unit/mL(3 mL mL) subcutaneous pen (Fiasp FlexTouch U-100 Insulin) rosuvastatin 40 mg tablet 40 mg PO DAILY HDL #90 tabs 06/04/24 Unknown Rx insulin degludec 200 unit/mL (3 18 unit subcut DAILY 06/18/24 Unknown History mL) subcutaneous pen (Tresiba FlexTouch U-200 insulin) pantoprazole 40 mg tablet,delayed 40 mg PO QDAY Check with primary 07/10/24 Unknown Rx release doctor #90 tabs Allergy/AdvReac Type Severity Reaction Status Date / Time Penicillins Allergy Severe Rash Verified 06/18/24 10:55 Family History Mother Breast cancer Myocardial infarction Hypertension Diabetes Heart disease CAD (coronary artery disease) Father Myocardial infarction Surgical History H/O eye surgery History of right-sided carotid endarterectomy History of esophageal dilatation History of esophagogastroduodenoscopy (EGD) Social History Smoking Status: Never smoker second hand exposure: No alcohol intake: current alcohol intake frequency: a few times a month Alcohol type: beer substance use type: does not use caffeine: Yes what type of physical activity do you participate in: aerobics and weight training frequency: 3-4 times per week ROS ROS ED Constitutional Constitutional ED: Denies chills, fever(s) or weight loss Eyes Eyes: Denies blurry vision, change in vision or diplopia ENT ENT ED: Denies ear pain, rhinorrhea or sore throat Cardiovascular Cardiovascular: Reports other Details: Syncope/near syncope ; Denies chest pain, orthopnea, palpitations or racing heartbeat Respiratory/Chest Respiratory/Chest: Denies cough, dyspnea or orthopnea Gastrointestinal Gastrointestinal: Denies abdominal pain, diarrhea, nausea or vomiting Genitourinary Genitourinary ED: Denies dysuria, hematuria or urinary frequency Musculoskeletal Musculoskeletal: Denies arthralgias, myalgias or neck pain Integumentary Denies abscess or rash Neurologic Neurologic: Reports paresthesias and weakness; Denies headache(s) Psychiatric Psychiatric: Denies anxiety, depression, suicidal ideation or suicidal thoughts Endocrine Endocrinology: Denies polydipsia, polyphagia or polyuria Allergic/Immunologic Allergic/Immunologic ED: Denies mouth swelling, tongue swelling or urticaria EXAM Physical Exam Const Vital Signs: 08/26/24 13:17 08/26/24 14:35 08/26/24 15:17 Temperature 97.9 F Temperature Source Temporal Pulse Rate 93 69 Respiratory Rate 18 18 Respiratory Effort Normal Respiratory Pattern Normal Blood Pressure 124/89 H 127/74 H Blood Pressure Mean 100 91 Pulse Ox 97 97 Oxygen Delivery Method Room Air Room Air Positive well nourished and well developed General Appearance ED: well developed and NAD HEENT Reports normocephalic, head/scalp atraumatic and moist mucous membranes Eyes PERRL and EOMs intact bilaterally Neck no lymphadenopathy, supple and no JVD Resp normal respiratory effort and clear to auscultation bilaterally Cardio regular rate, regular rhythm and no murmurs GI normal to inspection, nondistended, normoactive bowel sounds and non-tender Palpation: soft Back/Spine no CVA tenderness and normal ROM Extremity normal to inspection General Extremety ED: Negative for edema General Extremity: Negative for edema Neuro oriented x3, CN's II-XII intact bilaterally and no sensory deficits noted Neuro Narrative: NIH 0 Sensorium / Orientation: alert Sensory Exam: No sensory level loss detected Motor Exam: strength 5/5 throughout Psych mental status grossly normal Mood & Affect: Negative for depressed or tearful Skin no rashes or lesions noted and no wounds MDM MDM MDM Narrative Medical decision making narrative: Differential diagnosis includes but not limited to vasovagal syncope near syncope cardiogenic syncope versus syncope history of malignancy carotid artery stenosis electrolyte abnormalities acute coronary syndrome Patient's EKG is in normal sinus rhythm. My independent interpretation of the chest x-ray is no acute process. Creatinine 1.85 and he does have a history of chronic kidney disease. Sodium potassium within normal limits. Troponin is 11. Glucose 150. CTA head and neck demonstrates carotid artery stenosis by laterally at 70% on the right. He typically has followed with vascular following a carotid enterectomy in the past. He did not see them in May as the vascular surgeon has retired. I can refer him to vascular surgeon for have not seen any cardiac dysrhythmias. Exact etiology at this point is unclear. Would recommend PCP follow-up. Return if worsening or concerns patient and notes understanding the plan is comfortable with History & Record Review Discussion w/independent historian: Patient Lab Data Attestation: I reviewed the patient's lab results. Labs: Laboratory Results - last 24 hr 08/26/24 08/26/24 08/26/24 13:55 13:55 14:12 WBC Cancelled 6.4 Corrected WBC Cancelled RBC Cancelled 4.70 Hgb Cancelled 13.2 Hct Cancelled 40.3 MCV Cancelled 85.7 MCH Cancelled 28.1 MCHC Cancelled 32.8 RDW Std Deviation Cancelled 42.0 RDW Coeff of Alyssia Cancelled 13.3 Plt Count Cancelled 273 MPV Cancelled 8.8 Immature Gran % (Auto) Cancelled 0.500 Neut % (Auto) Cancelled 64.0 Lymph % (Auto) Cancelled 24.1 [place] % (Auto) Cancelled 9.3 Eos % (Auto) Cancelled 1.2 Baso % (Auto) Cancelled 0.9 Absolute Neuts (auto) Cancelled 4.1 Absolute Lymphs (auto) Cancelled 1.55 Total Counted Cancelled Neutrophils % (Manual) Cancelled Band Neutrophils % Cancelled Lymphocytes % (Manual) Cancelled Monocytes % (Manual) Cancelled Eosinophils % (Manual) Cancelled Basophils % (Manual) Cancelled Metamyelocytes % Cancelled Myelocytes % Cancelled Promyelocytes % Cancelled Blast Cells % Cancelled Plasma Cell % (Manual) Cancelled Other Cells % Cancelled Nucleated RBC % Cancelled 0 Nucleated RBCs/100 WBC Cancelled Differential Comment Cancelled Diff Path Review Cancelled Hypersegmented Neuts Cancelled Atypical Lymphocytes Cancelled Reactive Lymphocytes Cancelled Smudge Cells Cancelled Toxic Granulation Cancelled Toxic Vacuolation Cancelled Dohle Bodies Cancelled Kirk Rods Cancelled Platelet Estimate Cancelled Plt Morphology Comment Cancelled RBC Morphology Cancelled Cancelled Polychromasia Cancelled Hypochromasia Cancelled Basophilic Stippling Cancelled Anisocytosis Cancelled Microcytosis Cancelled Macrocytosis Cancelled Spherocytes Cancelled Sickle Cells Cancelled Target Cells Cancelled Tear Drop Cells Cancelled Ovalocytes Cancelled Stomatocytes Cancelled [place] Bodies Cancelled Talia Cells Cancelled Bite Cells Cancelled Crenated Cell Cancelled Acanthocytes (Spur) Cancelled Rouleaux Cancelled Schistocytes Cancelled Sodium 136 Potassium 4.6 Chloride 110 H Carbon Dioxide 20.0 L Anion Gap 5 BUN 36 H Creatinine 1.85 H Est GFR (MDRD) Af Amer 46 L Est GFR (MDRD) Non-Af 38 L BUN/Creatinine Ratio 19.5 Glucose 150 H Calcium 8.8 Troponin I High Sens 11 Radiography Diagnostic Testing: Clinical Impression(s) from Imaging Studies Chest X-Ray 08/26/24 13:40 IMPRESSION: No acute pulmonary process Electronically Signed: Ramiro Linares MD at 14:16 EST , Head/Neck CTA 08/26/24 14:47 IMPRESSION: No acute intracranial findings. Stable senescent change. 70% stenosis right CCA proximal to the bifurcation. 65% stenosis left ICA at its origin. No significant major vessel vaso-occlusive disease in the head. Electronically Signed: Kendall Bedoya MD at 15:54 EST , EKG Initial EKG: Attestation: I personally reviewed and interpreted this EKG as follows: Comments: Sinus rhythm with first-degree AV block. Incomplete right bundle branch noted Prior EKG tracings: available for review Prior: Unchanged Discharge Plan Triage Chief Complaint: Weakness ED Provider: Aj Sharif Dx/Rx/DC Orders Clinical Impression: Syncope and collapse, Paresthesia, Carotid stenosis, bilateral Instructions: ED Fainting, Uncertain Cause, ED Paraesthesias Prescriptions: No Action dulaglutide 3 mg/0.5 mL pen injector 4.5 mg subcut QWEEK insulin degludec [Tresiba FlexTouch U-200] 200 unit/mL (3 mL) insulin pen 18 unit subcut DAILY Rx Instructions: AM aspirin 325 mg tablet 325 mg PO DAILY (DME) blood-glucose meter 1 EACH kit See Rx Instructions .Route .MEDSUPPLY Rx Instructions: check blood glucose daily for type 2 DM Pen needles 0 % .Route .MEDSUPPLY Rx Instructions: BID meclizine [Antivert] 50 mg tablet 50 mg PO DAILY PRN (Reason: dizziness) Qty: 10 0RF ondansetron 4 mg tablet,disintegrating 4 mg PO Q6H PRN PRN (Reason: Nausea) Qty: 10 0RF (DME) blood sugar diagnostic Strip 1 % .Route .MEDSUPPLY Qty: 300 3RF Rx Instructions: lancets-As directed with device up to 3 times daily (DME) FreeStyle Test Strip See Rx Instructions .ROUTE .MEDSUPPLY Qty: 300 3RF Rx Instructions: use to test blood sugar 3 times a day Dx E11 Diabetes amlodipine 5 mg tablet 5 mg PO DAILY Qty: 90 3RF glimepiride 2 mg tablet 2 mg PO BID Qty: 180 2RF lisinopril-hydrochlorothiazide 10-12.5 mg tablet 1 tab PO BID Qty: 180 1RF Fiasp FlexTouch U-100 Insulin 100 unit/mL (3 mL) insulin pen See Rx Instructions subcut TID MDD 70 Qty: 60 3RF Rx Instructions: subcutaneously three times a day; 17 units in AM; 16 units at Lunch; 17 at dinnertime, plus sliding scale rosuvastatin 40 mg tablet 40 mg PO DAILY Qty: 90 3RF pantoprazole 40 mg tablet,delayed release (DR/EC) 40 mg PO QDAY Qty: 90 3RF Rx Instructions: dm Primary Care Provider: Severino Hylton Referrals: Severino Hylton MD [Primary Care Provider] - As soon as possible Sia Pink MD [Med Staff - Active Staff] - As soon as possible (for vascular follow up) Print Language: Finnish Disposition Disposition: Home, Self Care
[2024-08-26 14:31] LABS: Anion Gap 5 (5-15); BUN 36 mg/dL (7-18); BUN/Creat Ratio 19.5 RATIO (10-20); Calcium,Total 8.8 mg/dL (8.5-10.1); Chloride 110 mmol/L (98-107); Creatinine, Serum 1.85 mg/dL (0.70-1.30); EST Glomerular Filtration Rate 38 mL/min (>60); Est Glom Filt Rate - Afr Amer 46 mL/min (>60); Glucose 150 mg/dL (74-106); Potassium 4.6 mmol/L (3.5-5.1); Sodium Level 136 mmol/L (136-145); Troponin-I HS 11 pg/mL (3.0-78.0)
--- NOTE | 2024-08-26 14:47 | CT_ITS ---
INDICATION: left arm/leg weakness EXAMINATION: CT BRAIN WITH CONTRAST TECHNIQUE: Noncontrast axial images were obtained of the brain. Subsequently, routine carotid CT angiogram protocol was performed without and with IV contrast. In addition, images were obtained of the [place]. NASCET criteria using the distal ICAs for comparison were used for evaluation of stenoses. 3D reconstructions were reviewed. A radiation dose optimization technique was used for this scan. IV Contrast dosage and agent: 100 cc [id number] COMPARISON: Noncontrast head CT 03/06/2024, CTA neck 11/19/2020 FINDINGS: --CT BRAIN: BRAIN PARENCHYMA: No intra- or extra-axial hemorrhage. No acute territorial infarction. Stable right occipital encephalomalacia from prior insult. No intracranial mass or mass effect. There is preservation of the santos/white matter interface. Stable volume loss with low attenuation of the periventricular white matter typical of chronic small vessel disease. CSF SPACES: Stable. No hydrocephalus. Basal cisterns are patent. CALVARIUM, SKULL BASE, PARANASAL SINUSES AND MASTOID AIR CELLS: Clear. No discrete lytic or blastic abnormalities. --CTA NECK: AORTIC ARCH AND BRANCHES: Vessel origins patent. RIGHT CCA: 70% stenosis proximal to the bifurcation. No occlusion or dissection. RIGHT ICA: No occlusion, significant stenosis or dissection. LEFT CCA: No occlusion, significant stenosis or dissection. LEFT ICA: 65% stenosis at its origin. No occlusion or dissection. RIGHT VERTEBRAL ARTERY: No occlusion, significant stenosis or dissection. LEFT VERTEBRAL ARTERY: Diminutive vessel which terminates at the base of the skull. NECK SOFT TISSUES: Bilateral thyroid nodules, largest 11 mm on the right. --CTA HEAD: --Anterior circulation: ICAs: No significant stenosis at the intracranial/visualized segments. ACAs: No significant stenosis at the visualized segments. Absent left A1 segment. ACOM: Present. MCAs: No significant stenosis at the visualized segments. --Posterior circulation: PCOMs: Not seen. teletray operator: No significant stenosis at the visualized segments. BASILAR ARTERY: No significant stenosis. VERTEBRAL ARTERIES: No significant stenosis at the intradural/visualized segments. No evidence of intracranial aneurysm or vascular malformation. CT/CTA Head AND Neck W/ Contrast IMPRESSION: No acute intracranial findings. Stable senescent change. 70% stenosis right CCA proximal to the bifurcation. 65% stenosis left ICA at its origin. No significant major vessel vaso-occlusive disease in the head. Electronically Signed: Kendall Bedoya MD at 15:54 EST ,
[2024-08-26 15:17] VITALS: BP 127/74; PULSE 69; RESP 18; O2SAT 97
[2024-08-26 15:21] LABS: Absolute Lymphocyte Count 1.55 X10^3/uL (0.83-4.51); Absolute Neutrophil Count 4.1 X10^3/uL (2.0-7.7); Basophil# 0.06 X10^3/uL; Basophil% 0.9 % (0-1); Eosinophil# 0.08 X10^3/uL; Eosinophils% 1.2 % (0-5); Hematocrit 40.3 % (40-54); Hemoglobin 13.2 g/dL (13.0-16.5); Lymphocyte # 1.55 X10^3/ul (0.83-4.51); Lymphocyte % 24.1 % (19-41); Mean Corp Hgb Conc 32.8 g/dL (32-36); Mean Corpuscular Hgb 28.1 pg (27.0-32.0); Mean Corpuscular Volume 85.7 fL (80-94); Mean Platelet Vol. 8.8 fl (6.2-12.0); Monocyte% 9.3 % (0-10); NRBC Flagged by Analyzer 0 % (0-5); Neutrophil # 4.12 X10^3/uL (2.7-7.7); Platelet Count 273 K/mm3 (150-450); RBC Distribution Width CV 13.3 % (11.6-14.6); White Blood Count 6.4 K/mm3 (4.4-11.0)
[2024-08-26 16:15] VITALS: BP 150/74; PULSE 68; RESP 16; TEMP 36.6; O2SAT 97
== END 2024-08-26 16:16 | disposition home or self-care (01) ==
PROVIDERS: Emergency Provider Emergency Medicine; PCP Internal Medicine; Visit Provider Emergency Medicine
DX: R55 Syncope and collapse (principal); E11.22 Type 2 diabetes mellitus with diabetic chronic kidney disease; Z79.4 Long term (current) use of insulin; N18.30 Chronic kidney disease, stage 3 unspecified; R20.2 Paresthesia of skin; I12.9 Hypertensive chronic kidney disease with stage 1 through stage 4 chronic kidney disease, or unspecified chronic kidney disease; I65.23 Occlusion and stenosis of bilateral carotid arteries; E78.00 Pure hypercholesterolemia, unspecified; Z79.82 Long term (current) use of aspirin; Z79.84 Long term (current) use of oral hypoglycemic drugs; Z79.85 Long-term (current) use of injectable non-insulin antidiabetic drugs; Z79.899 Other long term (current) drug therapy
CPT/HCPCS: 70496; 70498; 71045; 80048; 84484; 85025; 93005; 99284; Q9967; A4216

== ENCOUNTER → 2024-08-27 | Outpatient (CLI) | payer MEDICARE, OTHER, SELFPAY ==
--- NOTE | 2024-08-27 10:53 | RAD_ITS ---
INDICATION: Radiculopathy EXAMINATION/TECHNIQUE: X-RAY - XR Spine Cervical 2 or 3 Views COMPARISON: Prior study dated: 10/10/2020 FINDINGS: VERTEBRAE: Preserved vertebral body height. No fracture. No spondylolisthesis. Preservation of the normal cervical lordosis. No significant facet arthropathy. DISCS: Disc spaces are maintained. NECK SOFT TISSUES: No prevertebral soft tissue widening. Surgical clips in the right neck. LUNG APICES: Clear. RAD/Cerv Spine 2 or 3 Views IMPRESSION: No evidence of acute fracture or spondylolisthesis. Electronically Signed: Fran Hernandez MD at 4:31 EST ,
== END | disposition home or self-care (01) ==
LOC: MTRAD 10:53
PROVIDERS: PCP Internal Medicine; Referring Provider Internal Medicine; Visit Provider Internal Medicine
DX: R20.2 Paresthesia of skin (principal)
CPT/HCPCS: 72040

== ENCOUNTER → 2024-09-11 | Outpatient (CLI) | payer MEDICARE, OTHER, SELFPAY ==
--- NOTE | 2024-09-11 09:34 | STEWCON_ITS ---
Reason For Study: PREOP Stress Results Protocol: Crispin Protocol WITH DEFINITY Maximum Predicted HR: 147 bpm Target HR: 125 bpm % Maximum Predicted HR: 85 % DurationHeart Rate Stage (mm:ss) (bpm) BP Comment BASELINE 77 122/82 STAGE 1 3:00 103 128/70 STAGE 2 3:00 115 132/60 STAGE 3 0:30 125 / INCREASED SOB AND FATIGUE RECOVERY 90 128/82 Stress Duration: 6:30 mm:ss Maximum Stress HR: 125 bpm Baseline Echocardiogram Findings The estimated ejection fraction is 65 %. Postexercise EF is 75%. Stress Echo Wall motion Data Resting WM Intermediate WM Stress WM Resting Wall Motion Wall Motion Stress No regional wall motion No regional wall motion abnormalities noted. abnormalities noted. EKG Data The baseline ECG displays normal sinus rhythm. No significant ischemic changes. Symptoms with Stress The patient experinced No chest pain . ECHO/Stress Test Echo W/Contrast Interpretation Summary The estimated ejection fraction is 65 %. Exercise stress echo is negative for exercise-induced chest pain or EKG changes or echocardiographic changes of ischemia. Functional capacity is normal for age Ordering Physician: Noble Lopez Referring Physician: Noble Lopez Performed By: Don Malik RCS
== END | disposition home or self-care (01) ==
LOC: CVS 09:33
PROVIDERS: PCP Internal Medicine; Referring Provider Internal Medicine Cardiovascular Disease; Visit Provider Internal Medicine Cardiovascular Disease
DX: Z01.810 Encounter for preprocedural cardiovascular examination (principal); R55 Syncope and collapse
CPT/HCPCS: 93017; 93350; Q9957; A4216; C8928

== ENCOUNTER 2024-09-16 14:45 | Inpatient (IN) | payer MEDICARE, OTHER, SELFPAY ==
[2024-09-11 10:53] LABS: Absolute Lymphocyte Count 1.59 X10^3/uL (0.83-4.51); Basophil# 0.08 X10^3/uL; Basophil% 0.8 % (0-1); Eosinophil# 0.09 X10^3/uL; Eosinophils% 0.9 % (0-5); Lymphocyte # 1.59 X10^3/ul (0.83-4.51); Lymphocyte % 16.7 % (19-41); Mean Corp Hgb Conc 33.3 g/dL (32-36); Mean Platelet Vol. 8.5 fl (6.2-12.0); Monocyte# 0.69 X10^3/uL; Monocyte% 7.3 % (0-10); NRBC Flagged by Analyzer 0 % (0-5); Neutrophil % 73.8 % (47-70); Platelet Count 311 K/mm3 (150-450); RBC Distribution Width CV 13.1 % (11.6-14.6); RBC Distribution Width SD 39.8 fl (35.1-43.9); Red Blood Count 5.36 M/mm3 (4.6-6.2); White Blood Count 9.5 K/mm3 (4.4-11.0)
[2024-09-11 11:21] LABS: ALB/GLOB Ratio 0.8 RATIO (0.9-2.4); AST(SGOT) 13 U/L (15-37); Alanine Aminotransfer ALT/SGPT 24 U/L (16-61); Albumin, Serum 3.7 g/dL (3.2-5.0); Alkaline Phosphatase 80 U/L (45-117); Anion Gap 5 (5-15); BUN 49 mg/dL (7-18); BUN/Creat Ratio 21.6 RATIO (10-20); Calcium,Total 9.8 mg/dL (8.5-10.1); Chloride 105 mmol/L (98-107); Cholesterol 164 mg/dL (200); Creatinine, Serum 2.27 mg/dL (0.70-1.30); EST Glomerular Filtration Rate 30 mL/min (>60); Est Glom Filt Rate - Afr Amer 37 mL/min (>60); Globulin 4.4 g/dL (2.2-4.2); Glucose 139 mg/dL (74-106); High Density Lipoprotein 38 mg/dL; Potassium 3.9 mmol/L (3.5-5.1); Protein, Total 8.1 g/dL (6.4-8.2); Sodium Level 137 mmol/L (136-145); Triglycerides 125 mg/dL; Very Low Density Lipoprotein 25 mg/dL (5-40)
--- NOTE | 2024-09-12 09:01 | PAT.ANE_ITS ---
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 When Was Last Pacemaker Check QUESTION #4 FULL TEXT: You/Your Family Experience fever (hyperthermia) with Anesthesia Last Oral Intake Last Oral intake: Last Oral Intake NPO since Meds taken in AM with sips of water? 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 - industrial hire sales assistant: PONV - industrial hire sales assistant Female No 09/10/24 15:23 HX of Motion Sickness No 09/10/24 15:23 HX of N/V After Surgery No 09/10/24 15:23 Non-Smoker Yes 09/10/24 15:23 Duration of Surgery greater Yes 09/10/24 15:23 than 60 minutes Number of Risk Factors 2 09/10/24 15:23 PONV Score Moderate Risk 09/10/24 15:23 Height & Weight Height & Weight: Anesthesia: Height & Weight Height 5 ft 8 in 08/27/24 10:10 Respiratory Assessment Respiratory Assessment - industrial hire sales assistant: Respiratory Tract Infection Hx - industrial hire sales assistant Hx Respiratory Tract Infection No 09/10/24 15:23 STOP Sleep Apnea STOP Sleep Apnea - industrial hire sales assistant: STOP Sleep Apnea - industrial hire sales assistant Hx Hypertension Yes: CONTROLLED WITH MED 09/10/24 15:23 Hx Sleep Apnea No 09/10/24 15:23 CPAP BIPAP Do you snore loudly (louder No 09/10/24 15:23 than talking or can be heard Do you often feel tired/ Yes 09/10/24 15:23 fatigued/ sleepy during daytime? Has anyone observed you stop No 09/10/24 15:23 breathing during sleep? STOP Results Positive 09/10/24 15:23 QUESTION #5 FULL TEXT : Do you snore loudly (louder than talking or can be heard through closed doors)? 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 Specify any problems Hx of Preganancy in last 3 N/A 09/10/24 15:23 Months Nurse Filling Out Transfusion DSCHRIBER 09/10/24 15:23 & Questions: Date: 09/10/24 09/10/24 15:23 Time: 15:25 09/10/24 15:23 Patient unable to answer at this time (ie. confused, unrespo /Reproduction History /Reproductive History - industrial hire sales assistant: /Reproductive Hx- industrial hire sales assistant Hx Now No 09/10/24 15:23 Gestational Age (in weeks): EDC: Hx Hx Para Hx Section SAB No 09/10/24 15:23 PFSH Medical History (Updated 09/10/24 @ 15:33 by Judy Alexander) Wears glasses Cancer Alcohol use Insulin dependent diabetes mellitus History of renal disease Restless legs Dietary restriction Non-smoker Shortness of breath on exertion History of stress test Cardiology follow-up encounter Syncope History of Holter monitoring Flu vaccine need Left knee pain BPH (benign prostatic hyperplasia) History of Mohs micrographic surgery for skin cancer Osteoarthritis Obesity Health care maintenance Overweight (BMI 25.0-29.9) Carotid stenosis, bilateral Right hip pain Hyperlipidemia Type 2 diabetes mellitus Vision problems Skin cancer GERD (gastroesophageal reflux disease) High cholesterol HTN (hypertension) Seasonal allergies Arthritis Home Medications ?Medication ?Instructions ?Recorded ?Last Taken ?Type blood-glucose meter 12/01/20 Unknown History blood sugar diagnostic #300 ea 08/12/21 Unknown Rx blood sugar diagnostic (FreeStyle #300 ea 12/11/22 Unknown Rx Test strips) dulaglutide 3 mg/0.5 mL 4.5 mg subcut QWEEK DIABETES 04/27/23 09/05/24 History subcutaneous pen injector glimepiride 2 mg tablet 2 mg PO BID DIABETES #180 tabs 03/24/24 Unknown Rx lisinopril 10 1 tab PO BID HTN #180 tabs 04/07/24 Unknown Rx mg-hydrochlorothiazide 12.5 mg tablet rosuvastatin 40 mg tablet 40 mg PO DAILY HDL #90 tabs 06/04/24 Unknown Rx insulin degludec 200 unit/mL (3 21 unit subcut DAILY DIABETES 06/18/24 Unknown History mL) subcutaneous pen (Tresiba FlexTouch U-200 insulin) pantoprazole 40 mg tablet,delayed 40 mg PO QDAY GERD #90 tabs 07/10/24 Unknown Rx release ticagrelor 90 mg tablet (Brilinta) 90 mg PO BID PVD #60 tabs 09/03/24 Unknown Rx aspirin 81 mg capsule 81 mg PO QDAY SUPPLEMENT #30 caps 09/08/24 Unknown Rx insulin aspart 18 unit subcut LUNCH DIABETES 09/10/24 Unknown History (niacinamide)(U-100) 100 unit/mL(3 mL) subcutaneous pen (Fiasp FlexTouch U-100 Insulin) insulin aspart 19 unit subcut DAILY DIABETES 09/10/24 Unknown History (niacinamide)(U-100) 100 unit/mL(3 mL) subcutaneous pen (Fiasp FlexTouch U-100 Insulin) insulin aspart 19 unit subcut QPM DIABETES 09/10/24 Unknown History (niacinamide)(U-100) 100 unit/mL(3 mL) subcutaneous pen (Fiasp FlexTouch U-100 Insulin) Allergy/AdvReac Type Severity Reaction Status Date / Time Penicillins Allergy Severe Rash Verified 09/10/24 15:18 Family History Mother Breast cancer Myocardial infarction Hypertension Diabetes Heart disease CAD (coronary artery disease) Father Myocardial infarction Surgical History (Updated 09/10/24 @ 15:33 by Judy Alexander) H/O eye surgery History of right-sided carotid endarterectomy History of esophageal dilatation History of esophagogastroduodenoscopy (EGD) Social History Smoking Status: Never smoker second hand exposure: No alcohol intake: current alcohol intake frequency: a few times a month Alcohol type: beer substance use type: does not use caffeine: Yes what type of physical activity do you participate in: aerobics and weight training frequency: 3-4 times per week Audit: Pertinent Findings Pertinent Findings EKG Perinent findings: 08/2024 SR, occ pvc. 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 no new changes Stress test pertinent findings: 08/2024 law EF 65 Recommendation Anesthesia Recommendation Anesthesia recommendation: OPTIMIZED for anesthesia
--- NOTE | 2024-09-12 09:01 | PAT.ANE_ITS ---
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 When Was Last Pacemaker Check QUESTION #4 FULL TEXT: You/Your Family Experience fever (hyperthermia) with Anesthesia Last Oral Intake Last Oral intake: Last Oral Intake NPO since Meds taken in AM with sips of water? 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 - energy efficiency finance manager: PONV - energy efficiency finance manager Female No 09/10/24 15:23 HX of Motion Sickness No 09/10/24 15:23 HX of N/V After Surgery No 09/10/24 15:23 Non-Smoker Yes 09/10/24 15:23 Duration of Surgery greater Yes 09/10/24 15:23 than 60 minutes Number of Risk Factors 2 09/10/24 15:23 PONV Score Moderate Risk 09/10/24 15:23 Height & Weight Height & Weight: Anesthesia: Height & Weight Height 5 ft 8 in 08/27/24 10:10 Respiratory Assessment Respiratory Assessment - energy efficiency finance manager: Respiratory Tract Infection Hx - energy efficiency finance manager Hx Respiratory Tract Infection No 09/10/24 15:23 STOP Sleep Apnea STOP Sleep Apnea - energy efficiency finance manager: STOP Sleep Apnea - energy efficiency finance manager Hx Hypertension Yes: CONTROLLED WITH MED 09/10/24 15:23 Hx Sleep Apnea No 09/10/24 15:23 CPAP BIPAP Do you snore loudly (louder No 09/10/24 15:23 than talking or can be heard Do you often feel tired/ Yes 09/10/24 15:23 fatigued/ sleepy during daytime? Has anyone observed you stop No 09/10/24 15:23 breathing during sleep? STOP Results Positive 09/10/24 15:23 QUESTION #5 FULL TEXT : Do you snore loudly (louder than talking or can be heard through closed doors)? 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 Specify any problems Hx of Preganancy in last 3 N/A 09/10/24 15:23 Months Nurse Filling Out Transfusion DSCHRIBER 09/10/24 15:23 & Questions: Date: 09/10/24 09/10/24 15:23 Time: 15:25 09/10/24 15:23 Patient unable to answer at this time (ie. confused, unrespo /Reproduction History /Reproductive History - energy efficiency finance manager: /Reproductive Hx- energy efficiency finance manager Hx Now No 09/10/24 15:23 Gestational Age (in weeks): EDC: Hx Hx Para Hx Section SAB No 09/10/24 15:23 PFSH Medical History (Updated 09/10/24 @ 15:33 by Judy Alexander) Wears glasses Cancer Alcohol use Insulin dependent diabetes mellitus History of renal disease Restless legs Dietary restriction Non-smoker Shortness of breath on exertion History of stress test Cardiology follow-up encounter Syncope History of Holter monitoring Flu vaccine need Left knee pain BPH (benign prostatic hyperplasia) History of Mohs micrographic surgery for skin cancer Osteoarthritis Obesity Health care maintenance Overweight (BMI 25.0-29.9) Carotid stenosis, bilateral Right hip pain Hyperlipidemia Type 2 diabetes mellitus Vision problems Skin cancer GERD (gastroesophageal reflux disease) High cholesterol HTN (hypertension) Seasonal allergies Arthritis Home Medications ?Medication ?Instructions ?Recorded ?Last Taken ?Type blood-glucose meter 12/01/20 Unknown History blood sugar diagnostic #300 ea 08/12/21 Unknown Rx blood sugar diagnostic (FreeStyle #300 ea 12/11/22 Unknown Rx Test strips) dulaglutide 3 mg/0.5 mL 4.5 mg subcut QWEEK DIABETES 04/27/23 09/05/24 History subcutaneous pen injector glimepiride 2 mg tablet 2 mg PO BID DIABETES #180 tabs 03/24/24 Unknown Rx lisinopril 10 1 tab PO BID HTN #180 tabs 04/07/24 Unknown Rx mg-hydrochlorothiazide 12.5 mg tablet rosuvastatin 40 mg tablet 40 mg PO DAILY HDL #90 tabs 06/04/24 Unknown Rx insulin degludec 200 unit/mL (3 21 unit subcut DAILY DIABETES 06/18/24 Unknown History mL) subcutaneous pen (Tresiba FlexTouch U-200 insulin) pantoprazole 40 mg tablet,delayed 40 mg PO QDAY GERD #90 tabs 07/10/24 Unknown Rx release ticagrelor 90 mg tablet (Brilinta) 90 mg PO BID PVD #60 tabs 09/03/24 Unknown Rx aspirin 81 mg capsule 81 mg PO QDAY SUPPLEMENT #30 caps 09/08/24 Unknown Rx insulin aspart 18 unit subcut LUNCH DIABETES 09/10/24 Unknown History (niacinamide)(U-100) 100 unit/mL(3 mL) subcutaneous pen (Fiasp FlexTouch U-100 Insulin) insulin aspart 19 unit subcut DAILY DIABETES 09/10/24 Unknown History (niacinamide)(U-100) 100 unit/mL(3 mL) subcutaneous pen (Fiasp FlexTouch U-100 Insulin) insulin aspart 19 unit subcut QPM DIABETES 09/10/24 Unknown History (niacinamide)(U-100) 100 unit/mL(3 mL) subcutaneous pen (Fiasp FlexTouch U-100 Insulin) Allergy/AdvReac Type Severity Reaction Status Date / Time Penicillins Allergy Severe Rash Verified 09/10/24 15:18 Family History Mother Breast cancer Myocardial infarction Hypertension Diabetes Heart disease CAD (coronary artery disease) Father Myocardial infarction Surgical History (Updated 09/10/24 @ 15:33 by Judy Alexander) H/O eye surgery History of right-sided carotid endarterectomy History of esophageal dilatation History of esophagogastroduodenoscopy (EGD) Social History Smoking Status: Never smoker second hand exposure: No alcohol intake: current alcohol intake frequency: a few times a month Alcohol type: beer substance use type: does not use caffeine: Yes what type of physical activity do you participate in: aerobics and weight training frequency: 3-4 times per week Audit: Pertinent Findings Pertinent Findings EKG Perinent findings: 08/2024 SR, occ pvc. 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 no new changes Stress test pertinent findings: 08/2024 law EF 65 Recommendation Anesthesia Recommendation Anesthesia recommendation: OPTIMIZED for anesthesia
--- NOTE | 2024-09-12 13:53 | PAT.ANE_ITS ---
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 When Was Last Pacemaker Check QUESTION #4 FULL TEXT: You/Your Family Experience fever (hyperthermia) with Anesthesia Last Oral Intake Last Oral intake: Last Oral Intake NPO since Meds taken in AM with sips of water? 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 - nuclear medical tech: PONV - nuclear medical tech Female No 09/10/24 15:23 HX of Motion Sickness No 09/10/24 15:23 HX of N/V After Surgery No 09/10/24 15:23 Non-Smoker Yes 09/10/24 15:23 Duration of Surgery greater Yes 09/10/24 15:23 than 60 minutes Number of Risk Factors 2 09/10/24 15:23 PONV Score Moderate Risk 09/10/24 15:23 Height & Weight Height & Weight: Anesthesia: Height & Weight Height 5 ft 8 in 08/27/24 10:10 Respiratory Assessment Respiratory Assessment - nuclear medical tech: Respiratory Tract Infection Hx - nuclear medical tech Hx Respiratory Tract Infection No 09/10/24 15:23 STOP Sleep Apnea STOP Sleep Apnea - nuclear medical tech: STOP Sleep Apnea - nuclear medical tech Hx Hypertension Yes: CONTROLLED WITH MED 09/10/24 15:23 Hx Sleep Apnea No 09/10/24 15:23 CPAP BIPAP Do you snore loudly (louder No 09/10/24 15:23 than talking or can be heard Do you often feel tired/ Yes 09/10/24 15:23 fatigued/ sleepy during daytime? Has anyone observed you stop No 09/10/24 15:23 breathing during sleep? STOP Results Positive 09/10/24 15:23 QUESTION #5 FULL TEXT : Do you snore loudly (louder than talking or can be heard through closed doors)? 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 Specify any problems Hx of Preganancy in last 3 N/A 09/10/24 15:23 Months Nurse Filling Out Transfusion DSCHRIBER 09/10/24 15:23 & Questions: Date: 09/10/24 09/10/24 15:23 Time: 15:25 09/10/24 15:23 Patient unable to answer at this time (ie. confused, unrespo /Reproduction History /Reproductive History - nuclear medical tech: /Reproductive Hx- nuclear medical tech Hx Now No 09/10/24 15:23 Gestational Age (in weeks): EDC: Hx Hx Para Hx Section SAB No 09/10/24 15:23 PFSH Medical History (Updated 09/10/24 @ 15:33 by Judy Alexander) Wears glasses Cancer Alcohol use Insulin dependent diabetes mellitus History of renal disease Restless legs Dietary restriction Non-smoker Shortness of breath on exertion History of stress test Cardiology follow-up encounter Syncope History of Holter monitoring Flu vaccine need Left knee pain BPH (benign prostatic hyperplasia) History of Mohs micrographic surgery for skin cancer Osteoarthritis Obesity Health care maintenance Overweight (BMI 25.0-29.9) Carotid stenosis, bilateral Right hip pain Hyperlipidemia Type 2 diabetes mellitus Vision problems Skin cancer GERD (gastroesophageal reflux disease) High cholesterol HTN (hypertension) Seasonal allergies Arthritis Home Medications ?Medication ?Instructions ?Recorded ?Last Taken ?Type blood-glucose meter 12/01/20 Unknown History blood sugar diagnostic #300 ea 08/12/21 Unknown Rx blood sugar diagnostic (FreeStyle #300 ea 12/11/22 Unknown Rx Test strips) dulaglutide 3 mg/0.5 mL 4.5 mg subcut QWEEK DIABETES 04/27/23 09/05/24 History subcutaneous pen injector glimepiride 2 mg tablet 2 mg PO BID DIABETES #180 tabs 03/24/24 Unknown Rx lisinopril 10 1 tab PO BID HTN #180 tabs 04/07/24 Unknown Rx mg-hydrochlorothiazide 12.5 mg tablet rosuvastatin 40 mg tablet 40 mg PO DAILY HDL #90 tabs 06/04/24 Unknown Rx insulin degludec 200 unit/mL (3 21 unit subcut DAILY DIABETES 06/18/24 Unknown History mL) subcutaneous pen (Tresiba FlexTouch U-200 insulin) pantoprazole 40 mg tablet,delayed 40 mg PO QDAY GERD #90 tabs 07/10/24 Unknown Rx release ticagrelor 90 mg tablet (Brilinta) 90 mg PO BID PVD #60 tabs 09/03/24 Unknown Rx aspirin 81 mg capsule 81 mg PO QDAY SUPPLEMENT #30 caps 09/08/24 Unknown Rx insulin aspart 18 unit subcut LUNCH DIABETES 09/10/24 Unknown History (niacinamide)(U-100) 100 unit/mL(3 mL) subcutaneous pen (Fiasp FlexTouch U-100 Insulin) insulin aspart 19 unit subcut DAILY DIABETES 09/10/24 Unknown History (niacinamide)(U-100) 100 unit/mL(3 mL) subcutaneous pen (Fiasp FlexTouch U-100 Insulin) insulin aspart 19 unit subcut QPM DIABETES 09/10/24 Unknown History (niacinamide)(U-100) 100 unit/mL(3 mL) subcutaneous pen (Fiasp FlexTouch U-100 Insulin) Allergy/AdvReac Type Severity Reaction Status Date / Time Penicillins Allergy Severe Rash Verified 09/10/24 15:18 Family History Mother Breast cancer Myocardial infarction Hypertension Diabetes Heart disease CAD (coronary artery disease) Father Myocardial infarction Surgical History (Updated 09/10/24 @ 15:33 by Judy Alexander) H/O eye surgery History of right-sided carotid endarterectomy History of esophageal dilatation History of esophagogastroduodenoscopy (EGD) Social History Smoking Status: Never smoker second hand exposure: No alcohol intake: current alcohol intake frequency: a few times a month Alcohol type: beer substance use type: does not use caffeine: Yes what type of physical activity do you participate in: aerobics and weight training frequency: 3-4 times per week Audit: Pertinent Findings HISTORY of Pertinent Findings History of Pertinent Findings: EKG Pertinent Findings EKG Perinent findings 08/2024 SR, occ pvc. 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 no new changes Stress Test Pertinent Findings Stress test pertinent findings 08/2024 law EF 65 09/12/24 09:03 Pertinent Findings Additional pertinent findings: cr elevated has known ckd Recommendation Anesthesia Recommendation Anesthesia recommendation: OPTIMIZED for anesthesia
--- NOTE | 2024-09-12 13:53 | PAT.ANE_ITS ---
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 When Was Last Pacemaker Check QUESTION #4 FULL TEXT: You/Your Family Experience fever (hyperthermia) with Anesthesia Last Oral Intake Last Oral intake: Last Oral Intake NPO since Meds taken in AM with sips of water? 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 Female No 09/10/24 15:23 HX of Motion Sickness No 09/10/24 15:23 HX of N/V After Surgery No 09/10/24 15:23 Non-Smoker Yes 09/10/24 15:23 Duration of Surgery greater Yes 09/10/24 15:23 than 60 minutes Number of Risk Factors 2 09/10/24 15:23 PONV Score Moderate Risk 09/10/24 15:23 Height & Weight Height & Weight: Anesthesia: Height & Weight Height 5 ft 8 in 08/27/24 10:10 Respiratory Assessment Respiratory Assessment - security guards dispatcher: Respiratory Tract Infection Hx - security guards dispatcher Hx Respiratory Tract Infection No 09/10/24 15:23 STOP Sleep Apnea STOP Sleep Apnea - security guards dispatcher: STOP Sleep Apnea - security guards dispatcher Hx Hypertension Yes: CONTROLLED WITH MED 09/10/24 15:23 Hx Sleep Apnea No 09/10/24 15:23 CPAP BIPAP Do you snore loudly (louder No 09/10/24 15:23 than talking or can be heard Do you often feel tired/ Yes 09/10/24 15:23 fatigued/ sleepy during daytime? Has anyone observed you stop No 09/10/24 15:23 breathing during sleep? STOP Results Positive 09/10/24 15:23 QUESTION #5 FULL TEXT : Do you snore loudly (louder than talking or can be heard through closed doors)? 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 Specify any problems Hx of Preganancy in last 3 N/A 09/10/24 15:23 Months Nurse Filling Out Transfusion DSCHRIBER 09/10/24 15:23 & Questions: Date: 09/10/24 09/10/24 15:23 Time: 15:25 09/10/24 15:23 Patient unable to answer at this time (ie. confused, unrespo /Reproduction History /Reproductive History - security guards dispatcher: /Reproductive Hx- security guards dispatcher Hx Now No 09/10/24 15:23 Gestational Age (in weeks): EDC: Hx Hx Para Hx Section SAB No 09/10/24 15:23 PFSH Medical History (Updated 09/10/24 @ 15:33 by Judy Alexander) Wears glasses Cancer Alcohol use Insulin dependent diabetes mellitus History of renal disease Restless legs Dietary restriction Non-smoker Shortness of breath on exertion History of stress test Cardiology follow-up encounter Syncope History of Holter monitoring Flu vaccine need Left knee pain BPH (benign prostatic hyperplasia) History of Mohs micrographic surgery for skin cancer Osteoarthritis Obesity Health care maintenance Overweight (BMI 25.0-29.9) Carotid stenosis, bilateral Right hip pain Hyperlipidemia Type 2 diabetes mellitus Vision problems Skin cancer GERD (gastroesophageal reflux disease) High cholesterol HTN (hypertension) Seasonal allergies Arthritis Home Medications ?Medication ?Instructions ?Recorded ?Last Taken ?Type blood-glucose meter 12/01/20 Unknown History blood sugar diagnostic #300 ea 08/12/21 Unknown Rx blood sugar diagnostic (FreeStyle #300 ea 12/11/22 Unknown Rx Test strips) dulaglutide 3 mg/0.5 mL 4.5 mg subcut QWEEK DIABETES 04/27/23 09/05/24 History subcutaneous pen injector glimepiride 2 mg tablet 2 mg PO BID DIABETES #180 tabs 03/24/24 Unknown Rx lisinopril 10 1 tab PO BID HTN #180 tabs 04/07/24 Unknown Rx mg-hydrochlorothiazide 12.5 mg tablet rosuvastatin 40 mg tablet 40 mg PO DAILY HDL #90 tabs 06/04/24 Unknown Rx insulin degludec 200 unit/mL (3 21 unit subcut DAILY DIABETES 06/18/24 Unknown History mL) subcutaneous pen (Tresiba FlexTouch U-200 insulin) pantoprazole 40 mg tablet,delayed 40 mg PO QDAY GERD #90 tabs 07/10/24 Unknown Rx release ticagrelor 90 mg tablet (Brilinta) 90 mg PO BID PVD #60 tabs 09/03/24 Unknown Rx aspirin 81 mg capsule 81 mg PO QDAY SUPPLEMENT #30 caps 09/08/24 Unknown Rx insulin aspart 18 unit subcut LUNCH DIABETES 09/10/24 Unknown History (niacinamide)(U-100) 100 unit/mL(3 mL) subcutaneous pen (Fiasp FlexTouch U-100 Insulin) insulin aspart 19 unit subcut DAILY DIABETES 09/10/24 Unknown History (niacinamide)(U-100) 100 unit/mL(3 mL) subcutaneous pen (Fiasp FlexTouch U-100 Insulin) insulin aspart 19 unit subcut QPM DIABETES 09/10/24 Unknown History (niacinamide)(U-100) 100 unit/mL(3 mL) subcutaneous pen (Fiasp FlexTouch U-100 Insulin) Allergy/AdvReac Type Severity Reaction Status Date / Time Penicillins Allergy Severe Rash Verified 09/10/24 15:18 Family History Mother Breast cancer Myocardial infarction Hypertension Diabetes Heart disease CAD (coronary artery disease) Father Myocardial infarction Surgical History (Updated 09/10/24 @ 15:33 by Judy Alexander) H/O eye surgery History of right-sided carotid endarterectomy History of esophageal dilatation History of esophagogastroduodenoscopy (EGD) Social History Smoking Status: Never smoker second hand exposure: No alcohol intake: current alcohol intake frequency: a few times a month Alcohol type: beer substance use type: does not use caffeine: Yes what type of physical activity do you participate in: aerobics and weight training frequency: 3-4 times per week Audit: Pertinent Findings HISTORY of Pertinent Findings History of Pertinent Findings: EKG Pertinent Findings EKG Perinent findings 08/2024 SR, occ pvc. 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 no new changes Stress Test Pertinent Findings Stress test pertinent findings 08/2024 law EF 65 09/12/24 09:03 Pertinent Findings Additional pertinent findings: cr elevated has known ckd Recommendation Anesthesia Recommendation Anesthesia recommendation: OPTIMIZED for anesthesia
[2024-09-16] VITALS (23 sets, daily range): BP systolic 110–148; BP diastolic 53–85; PULSE 74–99; RESP 9–20; TEMP 36.2–36.9; O2SAT 93–100; BMI 30.4; BMI 30.6
[2024-09-16] MEDS: 0.9% Normal Saline (1000mL) 1,000 ML 100 ML IV ×2 (10:00→17:38)
[2024-09-16] MEDS: 0.9% Normal Saline (1000mL) 1,000 ML 15 ML IV (10:38)
[2024-09-16] MEDS: Vancomycin IV 1,000 MG/200 ML BAG 200 MG IV (10:39)
--- NOTE | 2024-09-16 11:03 | PRE.ANES_ITS ---
ASA Classification* ASA Classification ASA Classification: 3 Assessment & Plan Anesthesia* Anesthesia Assessment Anesthesia Assessment: Discussed sedation and/or anesthesia options, risks, benefits, and alternatives with patient/parents/legal guardian/POA. Questions invited. The patient/parents/legal guardian/POA seems to understand and agrees to proceed with anesthesia plan. Reviewed the physical assessment, medical history, allergy history and patient home medications list prior to surgery/procedure/anesthetic and documented any changes. Performed airway and anesthesia risk assessments. Anesthesia Type Anesthesia Type: General History Source History Obtained from:: Patient and Chart Anesthesia Focused Assessment* Temperature: 97.4 F Pulse Rate: 74 Blood Pressure: 125/79 Respiratory Rate: 16 Pulse Ox: 100 Oxygen Delivery Method: Room Air Airway Assessment Mouth opens: >3 cm Mallampati Score: I Teeth Condition: Missing (Patient has several missing teeth. Rest of the teeth are tight.) Neck Range of motion (ROM): Limited ROM (Slight decrease extension) Focused Labs Anesthesia Preop lab: CBC WBC 9.5 K/mm3 (4.4-11.0) 09/11/24 10:41 RBC 5.36 M/mm3 (4.6-6.2) 09/11/24 10:41 Hgb 15.0 g/dL (13.0-16.5) 09/11/24 10:41 Hct 45.0 % (40-54) 09/11/24 10:41 Plt Count 311 K/mm3 (150-450) 09/11/24 10:41 CHEMISTRY Potassium 3.9 mmol/L (3.5-5.1) 09/11/24 10:41 Sodium 137 mmol/L (136-145) 09/11/24 10:41 Magnesium 1.8 mg/dL (1.6-2.6) 01/23/21 05:50 BUN 49 mg/dL (7-18) H 09/11/24 10:41 Creatinine 2.27 mg/dL (0.70-1.30) H 09/11/24 10:41 Glucose 139 mg/dL (74-106) H 09/11/24 10:41 POC Glucose 152 mg/dL (70-110) H 01/23/21 06:39 TSH 0.84 uIU/mL (0.358-3.74) 11/17/13 10:52 COAG Pre-Assessment Diagnosis/Proposed Procedure Planned Operative Procedure(s): RIGHT TCAR Anesthesia History 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 When Was Last Pacemaker Check QUESTION #4 FULL TEXT: You/Your Family Experience fever (hyperthermia) with Anesthesia Last Oral Intake Last Oral intake: Last Oral Intake NPO since 17:30 09/16/24 10:17 Meds taken in AM with sips of Yes 09/16/24 10:17 water? 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 - batt machine operator: PONV - batt machine operator Female No 09/10/24 15:23 HX of Motion Sickness No 09/10/24 15:23 HX of N/V After Surgery No 09/10/24 15:23 Non-Smoker Yes 09/10/24 15:23 Duration of Surgery greater Yes 09/10/24 15:23 than 60 minutes Number of Risk Factors 2 09/10/24 15:23 PONV Score Moderate Risk 09/10/24 15:23 Height & Weight Height & Weight: Anesthesia: Height & Weight Height 5 ft 8 in 09/16/24 10:17 Weight: 91 kg 09/16/24 10:17 Body Mass Index (BMI) 30.4 09/16/24 10:17 Respiratory Assessment Respiratory Assessment - batt machine operator: Respiratory Tract Infection Hx - batt machine operator Hx Respiratory Tract Infection No 09/10/24 15:23 STOP Sleep Apnea STOP Sleep Apnea - batt machine operator: STOP Sleep Apnea - batt machine operator Hx Hypertension Yes: CONTROLLED WITH MED 09/10/24 15:23 Hx Sleep Apnea No 09/10/24 15:23 CPAP BIPAP Do you snore loudly (louder No 09/10/24 15:23 than talking or can be heard Do you often feel tired/ Yes 09/10/24 15:23 fatigued/ sleepy during daytime? Has anyone observed you stop No 09/10/24 15:23 breathing during sleep? STOP Results Positive 09/10/24 15:23 QUESTION #5 FULL TEXT : Do you snore loudly (louder than talking or can be heard through closed doors)? 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 Specify any problems Hx of Preganancy in last 3 N/A 09/10/24 15:23 Months Nurse Filling Out Transfusion DSCHRIBER 09/10/24 15:23 & Questions: Date: 09/10/24 09/10/24 15:23 Time: 15:25 09/10/24 15:23 Patient unable to answer at this time (ie. confused, unrespo /Reproduction History /Reproductive History - batt machine operator: /Reproductive Hx- batt machine operator Hx Now No 09/10/24 15:23 Gestational Age (in weeks): EDC: Hx Hx Para Hx Section SAB No 09/10/24 15:23 Active Medications Active Medications: Current Medications Generic Name Dose Route Start Last Admin Trade Name Freq PRN Reason Stop Dose Admin Sodium Chloride 1,000 mls @ 15 mls/hr 09/16/24 10:05 09/16/24 10:38 IV 09/21/24 23:24 15 mls/hr .Q48H DAWIT Administration Protocol PFSH Medical History Wears glasses Cancer Alcohol use Insulin dependent diabetes mellitus History of renal disease Restless legs Dietary restriction Non-smoker Shortness of breath on exertion History of stress test Cardiology follow-up encounter Syncope History of Holter monitoring Flu vaccine need Left knee pain BPH (benign prostatic hyperplasia) History of Mohs micrographic surgery for skin cancer Osteoarthritis Obesity Health care maintenance Overweight (BMI 25.0-29.9) Carotid stenosis, bilateral Right hip pain Hyperlipidemia Type 2 diabetes mellitus Vision problems Skin cancer GERD (gastroesophageal reflux disease) High cholesterol HTN (hypertension) Seasonal allergies Arthritis Home Medications ?Medication ?Instructions ?Recorded ?Last Taken ?Type blood-glucose meter 12/01/20 Unknown History blood sugar diagnostic #300 ea 08/12/21 Unknown Rx blood sugar diagnostic (FreeStyle #300 ea 12/11/22 Unknown Rx Test strips) dulaglutide 3 mg/0.5 mL 4.5 mg subcut QWEEK DIABETES 04/27/23 09/05/24 History subcutaneous pen injector glimepiride 2 mg tablet 2 mg PO BID DIABETES #180 tabs 03/24/24 09/15/24 Rx lisinopril 10 1 tab PO BID HTN #180 tabs 04/07/24 09/15/24 Rx mg-hydrochlorothiazide 12.5 mg tablet rosuvastatin 40 mg tablet 40 mg PO DAILY HDL #90 tabs 06/04/24 09/15/24 Rx insulin degludec 200 unit/mL (3 21 unit subcut DAILY DIABETES 06/18/24 09/15/24 History mL) subcutaneous pen (Tresiba FlexTouch U-200 insulin) pantoprazole 40 mg tablet,delayed 40 mg PO QDAY GERD #90 tabs 07/10/24 09/16/24 Rx release ticagrelor 90 mg tablet (Brilinta) 90 mg PO BID PVD #60 tabs 09/03/24 09/16/24 Rx aspirin 81 mg capsule 81 mg PO QDAY SUPPLEMENT #30 caps 09/08/24 09/16/24 Rx insulin aspart 18 unit subcut LUNCH DIABETES 09/10/24 09/15/24 History (niacinamide)(U-100) 100 unit/mL(3 mL) subcutaneous pen (Fiasp FlexTouch U-100 Insulin) insulin aspart 19 unit subcut DAILY DIABETES 09/10/24 Unknown History (niacinamide)(U-100) 100 unit/mL(3 mL) subcutaneous pen (Fiasp FlexTouch U-100 Insulin) insulin aspart 19 unit subcut QPM DIABETES 09/10/24 09/15/24 History (niacinamide)(U-100) 100 unit/mL(3 mL) subcutaneous pen (Fiasp FlexTouch U-100 Insulin) Allergy/AdvReac Type Severity Reaction Status Date / Time Penicillins Allergy Severe Rash Verified 09/16/24 10:15 Family History Mother Breast cancer Myocardial infarction Hypertension Diabetes Heart disease CAD (coronary artery disease) Father Myocardial infarction Surgical History H/O eye surgery History of right-sided carotid endarterectomy History of esophageal dilatation History of esophagogastroduodenoscopy (EGD) Social History Smoking Status: Never smoker second hand exposure: No alcohol intake: current alcohol intake frequency: a few times a month Alcohol type: beer substance use type: does not use caffeine: Yes what type of physical activity do you participate in: aerobics and weight training frequency: 3-4 times per week Review of Systems (Anesthesia) ROS Narrative System reviewed and no additional complaints, except as documented.
--- NOTE | 2024-09-16 11:03 | PRE.ANES_ITS ---
ASA Classification* ASA Classification ASA Classification: 3 Assessment & Plan Anesthesia* Anesthesia Assessment Anesthesia Assessment: Discussed sedation and/or anesthesia options, risks, benefits, and alternatives with patient/parents/legal guardian/POA. Questions invited. The patient/parents/legal guardian/POA seems to understand and agrees to proceed with anesthesia plan. Reviewed the physical assessment, medical history, allergy history and patient home medications list prior to surgery/procedure/anesthetic and documented any changes. Performed airway and anesthesia risk assessments. Anesthesia Type Anesthesia Type: General History Source History Obtained from:: Patient and Chart Anesthesia Focused Assessment* Temperature: 97.4 F Pulse Rate: 74 Blood Pressure: 125/79 Respiratory Rate: 16 Pulse Ox: 100 Oxygen Delivery Method: Room Air Airway Assessment Mouth opens: >3 cm Mallampati Score: I Teeth Condition: Missing (Patient has several missing teeth. Rest of the teeth are tight.) Neck Range of motion (ROM): Limited ROM (Slight decrease extension) Focused Labs Anesthesia Preop lab: CBC WBC 9.5 K/mm3 (4.4-11.0) 09/11/24 10:41 RBC 5.36 M/mm3 (4.6-6.2) 09/11/24 10:41 Hgb 15.0 g/dL (13.0-16.5) 09/11/24 10:41 Hct 45.0 % (40-54) 09/11/24 10:41 Plt Count 311 K/mm3 (150-450) 09/11/24 10:41 CHEMISTRY Potassium 3.9 mmol/L (3.5-5.1) 09/11/24 10:41 Sodium 137 mmol/L (136-145) 09/11/24 10:41 Magnesium 1.8 mg/dL (1.6-2.6) 01/23/21 05:50 BUN 49 mg/dL (7-18) H 09/11/24 10:41 Creatinine 2.27 mg/dL (0.70-1.30) H 09/11/24 10:41 Glucose 139 mg/dL (74-106) H 09/11/24 10:41 POC Glucose 152 mg/dL (70-110) H 01/23/21 06:39 TSH 0.84 uIU/mL (0.358-3.74) 11/17/13 10:52 COAG Pre-Assessment Diagnosis/Proposed Procedure Planned Operative Procedure(s): RIGHT TCAR Anesthesia History 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 When Was Last Pacemaker Check QUESTION #4 FULL TEXT: You/Your Family Experience fever (hyperthermia) with Anesthesia Last Oral Intake Last Oral intake: Last Oral Intake NPO since 17:30 09/16/24 10:17 Meds taken in AM with sips of Yes 09/16/24 10:17 water? 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 - electrocardiograph repairer: PONV - electrocardiograph repairer Female No 09/10/24 15:23 HX of Motion Sickness No 09/10/24 15:23 HX of N/V After Surgery No 09/10/24 15:23 Non-Smoker Yes 09/10/24 15:23 Duration of Surgery greater Yes 09/10/24 15:23 than 60 minutes Number of Risk Factors 2 09/10/24 15:23 PONV Score Moderate Risk 09/10/24 15:23 Height & Weight Height & Weight: Anesthesia: Height & Weight Height 5 ft 8 in 09/16/24 10:17 Weight: 91 kg 09/16/24 10:17 Body Mass Index (BMI) 30.4 09/16/24 10:17 Respiratory Assessment Respiratory Assessment - electrocardiograph repairer: Respiratory Tract Infection Hx - electrocardiograph repairer Hx Respiratory Tract Infection No 09/10/24 15:23 STOP Sleep Apnea STOP Sleep Apnea - electrocardiograph repairer: STOP Sleep Apnea - electrocardiograph repairer Hx Hypertension Yes: CONTROLLED WITH MED 09/10/24 15:23 Hx Sleep Apnea No 09/10/24 15:23 CPAP BIPAP Do you snore loudly (louder No 09/10/24 15:23 than talking or can be heard Do you often feel tired/ Yes 09/10/24 15:23 fatigued/ sleepy during daytime? Has anyone observed you stop No 09/10/24 15:23 breathing during sleep? STOP Results Positive 09/10/24 15:23 QUESTION #5 FULL TEXT : Do you snore loudly (louder than talking or can be heard through closed doors)? 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 Specify any problems Hx of Preganancy in last 3 N/A 09/10/24 15:23 Months Nurse Filling Out Transfusion DSCHRIBER 09/10/24 15:23 & Questions: Date: 09/10/24 09/10/24 15:23 Time: 15:25 09/10/24 15:23 Patient unable to answer at this time (ie. confused, unrespo /Reproduction History /Reproductive History - electrocardiograph repairer: /Reproductive Hx- electrocardiograph repairer Hx Now No 09/10/24 15:23 Gestational Age (in weeks): EDC: Hx Hx Para Hx Section SAB No 09/10/24 15:23 Active Medications Active Medications: Current Medications Generic Name Dose Route Start Last Admin Trade Name Freq PRN Reason Stop Dose Admin Sodium Chloride 1,000 mls @ 15 mls/hr 09/16/24 10:05 09/16/24 10:38 IV 09/21/24 23:24 15 mls/hr .Q48H DAWIT Administration Protocol PFSH Medical History Wears glasses Cancer Alcohol use Insulin dependent diabetes mellitus History of renal disease Restless legs Dietary restriction Non-smoker Shortness of breath on exertion History of stress test Cardiology follow-up encounter Syncope History of Holter monitoring Flu vaccine need Left knee pain BPH (benign prostatic hyperplasia) History of Mohs micrographic surgery for skin cancer Osteoarthritis Obesity Health care maintenance Overweight (BMI 25.0-29.9) Carotid stenosis, bilateral Right hip pain Hyperlipidemia Type 2 diabetes mellitus Vision problems Skin cancer GERD (gastroesophageal reflux disease) High cholesterol HTN (hypertension) Seasonal allergies Arthritis Home Medications ?Medication ?Instructions ?Recorded ?Last Taken ?Type blood-glucose meter 12/01/20 Unknown History blood sugar diagnostic #300 ea 08/12/21 Unknown Rx blood sugar diagnostic (FreeStyle #300 ea 12/11/22 Unknown Rx Test strips) dulaglutide 3 mg/0.5 mL 4.5 mg subcut QWEEK DIABETES 04/27/23 09/05/24 History subcutaneous pen injector glimepiride 2 mg tablet 2 mg PO BID DIABETES #180 tabs 03/24/24 09/15/24 Rx lisinopril 10 1 tab PO BID HTN #180 tabs 04/07/24 09/15/24 Rx mg-hydrochlorothiazide 12.5 mg tablet rosuvastatin 40 mg tablet 40 mg PO DAILY HDL #90 tabs 06/04/24 09/15/24 Rx insulin degludec 200 unit/mL (3 21 unit subcut DAILY DIABETES 06/18/24 09/15/24 History mL) subcutaneous pen (Tresiba FlexTouch U-200 insulin) pantoprazole 40 mg tablet,delayed 40 mg PO QDAY GERD #90 tabs 07/10/24 09/16/24 Rx release ticagrelor 90 mg tablet (Brilinta) 90 mg PO BID PVD #60 tabs 09/03/24 09/16/24 Rx aspirin 81 mg capsule 81 mg PO QDAY SUPPLEMENT #30 caps 09/08/24 09/16/24 Rx insulin aspart 18 unit subcut LUNCH DIABETES 09/10/24 09/15/24 History (niacinamide)(U-100) 100 unit/mL(3 mL) subcutaneous pen (Fiasp FlexTouch U-100 Insulin) insulin aspart 19 unit subcut DAILY DIABETES 09/10/24 Unknown History (niacinamide)(U-100) 100 unit/mL(3 mL) subcutaneous pen (Fiasp FlexTouch U-100 Insulin) insulin aspart 19 unit subcut QPM DIABETES 09/10/24 09/15/24 History (niacinamide)(U-100) 100 unit/mL(3 mL) subcutaneous pen (Fiasp FlexTouch U-100 Insulin) Allergy/AdvReac Type Severity Reaction Status Date / Time Penicillins Allergy Severe Rash Verified 09/16/24 10:15 Family History Mother Breast cancer Myocardial infarction Hypertension Diabetes Heart disease CAD (coronary artery disease) Father Myocardial infarction Surgical History H/O eye surgery History of right-sided carotid endarterectomy History of esophageal dilatation History of esophagogastroduodenoscopy (EGD) Social History Smoking Status: Never smoker second hand exposure: No alcohol intake: current alcohol intake frequency: a few times a month Alcohol type: beer substance use type: does not use caffeine: Yes what type of physical activity do you participate in: aerobics and weight training frequency: 3-4 times per week Review of Systems (Anesthesia) ROS Narrative System reviewed and no additional complaints, except as documented.
--- NOTE | 2024-09-16 12:20 | PCM.HP.BLA ---
History and Physical Allergies Penicillins Allergy (Severe, Verified 09/08/24 13:08) Rash Medications ?Medication ?Instructions ?Recorded ?Confirmed ?Type Pen needles 0 % .Route .MEDSUPPLY Check with 12/01/20 08/27/24 History primary doctor blood-glucose meter 12/01/20 08/27/24 History blood sugar diagnostic #300 ea 08/12/21 08/27/24 Rx blood sugar diagnostic (FreeStyle #300 ea 12/11/22 08/27/24 Rx Test strips) dulaglutide 3 mg/0.5 mL 4.5 mg subcut QWEEK 04/27/23 09/08/24 History subcutaneous pen injector glimepiride 2 mg tablet 2 mg PO BID #180 tabs 03/24/24 09/08/24 Rx lisinopril 10 1 tab PO BID HTN #180 tabs 04/07/24 09/08/24 Rx mg-hydrochlorothiazide 12.5 mg tablet insulin aspart See Rx Instructions subcut TID #60 06/03/24 09/08/24 Rx (niacinamide)(U-100) 100 unit/mL(3 mL mL) subcutaneous pen (Fiasp FlexTouch U-100 Insulin) rosuvastatin 40 mg tablet 40 mg PO DAILY HDL #90 tabs 06/04/24 09/08/24 Rx insulin degludec 200 unit/mL (3 18 unit subcut DAILY 06/18/24 09/08/24 History mL) subcutaneous pen (Tresiba FlexTouch U-200 insulin) pantoprazole 40 mg tablet,delayed 40 mg PO QDAY Check with primary 07/10/24 09/08/24 Rx release doctor #90 tabs ticagrelor 90 mg tablet (Brilinta) 90 mg PO BID #60 tabs 09/03/24 09/08/24 Rx aspirin 81 mg capsule 81 mg PO QDAY #30 caps 09/08/24 09/08/24 Rx Have you fallen in the past year?: Yes [facility] Medical History Syncope Flu vaccine need Left knee pain BPH (benign prostatic hyperplasia) History of Mohs micrographic surgery for skin cancer Preoperative evaluation to rule out surgical contraindication Osteoarthritis Obesity Health care maintenance Overweight (BMI 25.0-29.9) Diabetes Trigger finger of right hand Carotid stenosis, bilateral Right hip pain Chronic kidney disease, stage III (moderate) Hyperlipidemia Type 2 diabetes mellitus Vision problems Skin cancer GERD (gastroesophageal reflux disease) High cholesterol HTN (hypertension) Seasonal allergies Arthritis Surgical History H/O eye surgery History of right-sided carotid endarterectomy History of esophageal dilatation History of esophagogastroduodenoscopy (EGD) Family History Mother Breast cancer Myocardial infarction Hypertension Diabetes Heart disease CAD (coronary artery disease)Father Myocardial infarction Social History Smoking Status: Never smoker second hand exposure: No alcohol intake: current alcohol intake frequency: a few times a month Alcohol type: beer substance use type: does not use caffeine: Yes what type of physical activity do you participate in: aerobics and weight training frequency: 3-4 times per week HPI HPI HPI: REJI JUSTICE, is a 74 M who presents to the office today for recurrent right carotid stenosis. Right CEA performed by Dr. Schmid in 2020 and had been followed with serial duplex, last in May 2023 which did not show significant restenosis. In ~ Jun of this year he had transient episode of left foot numbness/paralysis while mowing grass. This resolved within about 10 minutes, no other associated symptoms. He had a second episode shortly before where he had gotten out of car to walk into store and deflated crumpling on the ground; resolved within a few minutes and was not accompanied by any lateralized numbness/weakness. After this event he was evaluated in the ED a right ICA recurrent stenosis identified. Finally this morning he had just gotten out of shower and felt unwell so sat down; shortly after awoke on floor cold/clammy/sweating. Again no lateralized numbness/weakness. ROS General General: Yes fatigue; No weight change, appetite, colon cancer, breast cancer or weakness HEENT HEENT: No difficulty swallowing, eye injury, eye surgery, swollen glands or hoarseness Endo Endocrine: Yes diabetes mellitus; No thyroid disease, thyroid cancer, Hair loss, heat intolerance or cold intolerance Skin Skin: No rash or changing moles Musc Musculoskeletal: Yes arthritis; No back problems, rheumatoid arthritis, gout or joint pain Cardio Cardiovascular: Yes high blood pressure; No murmur, pacemaker, heart disease, atrial fibrillation, heart attack, heart stent, palpitations, shortness of breat with exertion or chest pain Psych Psychiatric: No depression, anxiety or hearing voices Resp Respiratory: Yes shortness of breath, No sleep apnea, No cough, No COPD, No asthma, No emphysema and No wheezing Gastro Gastrointestinal: No abdominal pain, Yes nausea or vomiting, No diarrhea, No constipation, No blood in stool, No acid reflux, No hemorrhoids, No ulcers, No gallbladder problem and No black,tarry stools Thai Hematologic: Yes blood thinners, No blood disorders, No bleeding, No anemia and No blood clots Neuro Neurologic: No system reviewed and no additional complaints, except as documented, No as per HPI, No abnormal gait, No abnormal hearing, No abnormal movements, No abnormal speech, No behavioral changes, No burning sensations, No confusion, No convulsions, Yes disequilibrium, Yes dizziness, Yes localized weakness, No frequent falls, Yes headache(s), No lack of coordination, No loss of vision, No memory loss, Yes numbness, No other visual disturbances, No radicular pain, No restless legs, No sensory deficit, Yes syncope, Yes tingling, No tremor(s), No weakness and No other Exam Const General: cooperative, healthy appearing, comfortable, no acute distress and well developed Nutritional Appearance: well nourished Orientation: alert, awake and oriented [facility] Head: normocephalic and atraumatic Ears: hearing grossly normal bilaterally Nose: external nose normal Eyes General: appearance normal, both eyes and all related structures EOM: EOM intact bilaterally Neck Neck: normal visual inspection, full ROM and trachea midline Resp Effort & Inspection: normal respiratory effort, able to speak in complete sentences, symmetric chest movement, no audible wheezes, not labored, no stridor and no use of accessory muscles Cardio Rate: regular rate Rhythm: regular rhythm Pulses: brachial pulses present and radial pulses present Skin General: no rashes or lesions noted and no erythema Wounds: no wounds Neuro Cranial Nerves: CN's II-XI intact bilaterally and EOM intact bilaterally Speech: speech normal Gait: normal gait Motor: strength 5/5 throughout Sensory Exam: no sensory deficits noted Psych Appearance: grossly normal and well kempt Mental Status: mental status grossly normal Mood: congruent mood Speech and Movement: speech and movement normal Thought Content: normal Judgment: judgment good Coding Level of Care Code Off vis,new,level 4 Diagnoses Recurrent stenosis of right carotid artery I65.21 Assessment and Plan Assessment and Plan (1) Recurrent stenosis of right carotid artery: Status: Chronic Comment: CTA- images reviewed, 78% stenosis right ICA, no calcification; 57% left ICA stenosis, calcified Plan: -right TCAR
[2024-09-16 12:47] LABS: Bedside Glucose 240 mg/dL (74-106)
[2024-09-16 15:00] LABS: ACT Activated Clotting Time 343 sec (74-137)
[2024-09-16 15:00] LABS: ACT Activated Clotting Time 291 sec (74-137)
--- NOTE | 2024-09-16 15:24 | PCM.POST.ANE ---
Anesthesia: Postop Eval I Current Vital Signs Temperature: 97.5 F Pulse Rate: 87 Blood Pressure: 146/70 (A-line reading. NIBP and [place] correlate. ) Respiratory Rate: 20 Pulse Ox: 98 Assessment Airway patent: Yes Spontaneous unlabored respirations: Yes nausea: No Vomiting: No Anesthesia Complication: No Fluid Hydration Crystalloid volume administer (ml): 1,000 Total IV fluid infused: 1,000 Progress Note Anesthesia document: Postop Eval 1 completed: Yes
[2024-09-16 15:29] LABS: Bedside Glucose 164 mg/dL (74-106)
[2024-09-16] MEDS: Insulin Lispro 100 UNIT/ML INSULN.PEN SC ×2 (17:44→20:09)
[2024-09-16 18:00] LABS: Bedside Glucose 182 mg/dL (74-106)
--- NOTE | 2024-09-16 18:46 | PCM.OPRPT ---
Operative Report (Standard) Operative Information Date of Procedure: 09/16/24 Pre-Operative Diagnosis: Recurrent symptomatic right carotid artery stenosis Post-Operative Diagnosis: Same Surgery/Procedure Performed: Right carotid artery stenting via carotid access director of restaurant: Yes Water [employer] Plant Operator: Sumi You Tasks completed by visitor services information assistant: Opening, Closing, Opening & closing, Implanting device and Retracting Type of Anesthesia: General RN Documented Start/Stop Times: Operation Date: 09/16/24 11:30 Case Time Into Pre-Op 09/16/24 10:03 Out of Pre-Op 09/16/24 12:18 Into Recovery 09/16/24 15:20 Out of Recovery 09/16/24 16:40 Procedure Start Time: 13:00 Procedure Stop Time: 15:00 Select all DRAINS/GRAFTS/IMPLANTS that apply: Implanted device Implanted device details: [address] En Route 8x30, 9x30 Estimated Blood Loss: 19 Specimen collected: No Description of surgery: HPI: Patient is a 74-year-old man who previously underwent a right carotid endarterectomy several years prior. Several months ago he suffered left lower extremity motor or sensory changes that he did not originally seek attention for. Later he had 2 other more vague neurologic episodes which resulted in him presenting to the emergency department where CT angiography revealed greater than 80% stenosis of the prior right carotid endarterectomy. Given the severity of the stenosis and potential symptoms related to this and the prior endarterectomy he presents now for transcarotid artery stenting. Description of procedure: Upon obtaining form consent and verification correct patient procedure site patient was taken to the Officer Lieutenant where he was placed under general anesthesia. He was then positioned prepped and draped in usual sterile fashion and timeout is performed. Ultrasound used to evaluate the location of the carotid bifurcation in position of the common carotid artery adjacent to the clavicle. There was sufficient distance between the prior endarterectomy incision and the clavicle to allow for transverse incision. Transverse incision was made centered over the common carotid artery and Bovie left cautery was dissect down through subcutaneous tissue. Self-retaining retractors then put in position further dissection carried down to the platysma was then divided. Bovie was then used to dissect between the sternal and clavicular heads of the sternocleidomastoid and self-retaining retractors moved deeper into the wound. Once the carotid sheath was visualized sharp dissection used dissect free the anterior aspect of the jugular vein with a sidebranch ligated with silk ties and divided. The jugular vein was then retracted laterally exposing the common carotid artery. Sharp dissection then used to dissect free proximally with care taken identify and protect the vagus nerve. A right angle used to place a vessel loop proximally and the patient was then heparinized allowed to circulate for 3 minutes after which subsequent heparin dosing was performed based on ACT results. A 5-0 Prolene pursestring suture was then placed at the intended access site. Next the right common femoral vein was accessed under ultrasound guidance with a micropuncture needle wire. This then exchanged for micropuncture sheath through which a J-wire was advanced the micropuncture sheath exchanged for the 8 [place] venous return sheath. The common carotid artery was accessed in antegrade fashion with a micropuncture needle wire and exchanged for micropuncture sheath. Through this hand-injection subtraction angiography was performed revealing satisfactory position with no extravasation or dissection. This also revealed the location of the recurrent lesion which was then marked on the screen. J-wire was then advanced and the puncture sheath exchanged for 8 [place] flow reversal sheath. The flow reversal tubing was then attached and adequate flow reversal confirmed. The common carotid artery was then occluded with Vesseloops adequate flow reversal confirmed again. Using an 014 wire we were able to navigate internal carotid artery stenosis advancing the wire and true lumen into the distal vessel. A silk Road 5 x 25 angioplasty balloon was then advanced and centered on the lesion and inflated to nominal for 15 seconds then deflated and withdrawn. An 8 x [address] stent was then advanced into position and deployed. 2 minutes of flow reversal was performed after which repeat angiography was obtained. This revealed either plaque prolapse through the stent or poor stent to wall apposition distal to the plaque. Given the potential for plaque prolapse it was felt that a second stent and further angioplasty was appropriate so a 9 x 30 en route stent was then advanced and centered around the area of abnormality and deployed. The entire stented segment was then postdilated with a 6 x 20 angioplasty balloon. Repeat imaging revealed satisfactory stent to wall apposition with no further flow irregularity or suspicion for plaque prolapse. There was no extravasation or dissection no distal occlusion evident. I further 2 minutes of flow reversal was then performed in the vessel loop used. 1 additional minute of flow reversal the tubing was detached and residual blood return via the femoral access sheath. The right femoral access sheath was then withdrawn and manual pressure held for 5 minutes until satisfactory stasis was noted. The right carotid pursestring suture was then secured as the sheath was withdrawn with satisfactory stasis noted. Heparin was then reversed with protamine incision inspected for hemostasis. There was some mild oozing from the musculature so [place] topical hemostatic was applied and a 15 [place]ian channel FABIANO placed via separate stab incision. The incision was then closed with 3-0 Vicryl followed by 4 Monocryl and Dermabond for the skin. At the conclusion the case the patient was awakened from anesthesia moving all extremities to command renal nerves grossly intact. He was then taken to the recovery room with planned admission to the intensive care unit for hemodynamic and neurologic monitoring. Surgical Findings: See above Complications Complications: No
--- NOTE | 2024-09-16 18:57 | POSTOPAN2_ITS ---
Anesthesia Postop Eval I Sum Postop Eval Completion status Anesthesia document: Postop Eval 1 completed: Yes Anesthesia Postop Eval I Summary Anesthesia Postop Eval I Summary: Anesthesia Postop Eval I: Assessment Summary Airway patent Yes 09/16/24 15:24 ELECTRON BEAM WELDING MACHINE OPERATOR.CSIR Spontaneous unlabored Yes 09/16/24 15:24 ELECTRON BEAM WELDING MACHINE OPERATOR.CSIR respirations Mental status nausea No 09/16/24 15:24 ELECTRON BEAM WELDING MACHINE OPERATOR.CSIR Vomiting No 09/16/24 15:24 ELECTRON BEAM WELDING MACHINE OPERATOR.CSIR Anesthesia Postop Eval I: Fluid Summary Crystalloid volume administer 1,000 09/16/24 15:24 ELECTRON BEAM WELDING MACHINE OPERATOR.CSIR (ml) Colloids volume administered ( ml) Blood Product volume administered (ml) Total IV fluid infused 1,000 09/16/24 15:24 ELECTRON BEAM WELDING MACHINE OPERATOR.CSIR Anesthesia Postop Eval I: Summary Notes Anesthesia Complication No 09/16/24 15:24 ELECTRON BEAM WELDING MACHINE OPERATOR.CSIR Anesthesia Complication Comment: Post-operative progress note Anesthesia: Postop Eval II Evaluation Mental status: Awake Pain Level: 0 nausea: No Vomiting: No
--- NOTE | 2024-09-16 18:57 | POSTOPAN2_ITS ---
Anesthesia Postop Eval I Sum Postop Eval Completion status Anesthesia document: Postop Eval 1 completed: Yes Anesthesia Postop Eval I Summary Anesthesia Postop Eval I Summary: Anesthesia Postop Eval I: Assessment Summary Airway patent Yes 09/16/24 15:24 PONY RIDE OPERATOR.CSIR Spontaneous unlabored Yes 09/16/24 15:24 PONY RIDE OPERATOR.CSIR respirations Mental status nausea No 09/16/24 15:24 PONY RIDE OPERATOR.CSIR Vomiting No 09/16/24 15:24 PONY RIDE OPERATOR.CSIR Anesthesia Postop Eval I: Fluid Summary Crystalloid volume administer 1,000 09/16/24 15:24 PONY RIDE OPERATOR.CSIR (ml) Colloids volume administered ( ml) Blood Product volume administered (ml) Total IV fluid infused 1,000 09/16/24 15:24 PONY RIDE OPERATOR.CSIR Anesthesia Postop Eval I: Summary Notes Anesthesia Complication No 09/16/24 15:24 PONY RIDE OPERATOR.CSIR Anesthesia Complication Comment: Post-operative progress note Anesthesia: Postop Eval II Evaluation Mental status: Awake Pain Level: 0 nausea: No Vomiting: No
--- NOTE | 2024-09-16 18:57 | PCM.POSTANE2 ---
Anesthesia Postop Eval I Sum Postop Eval Completion status Anesthesia document: Postop Eval 1 completed: Yes Anesthesia Postop Eval I Summary Anesthesia Postop Eval I Summary: Anesthesia Postop Eval I: Assessment Summary Airway patent Yes 09/16/24 15:24 HOISTING LABORER.CSIR Spontaneous unlabored Yes 09/16/24 15:24 HOISTING LABORER.CSIR respirations Mental status nausea No 09/16/24 15:24 HOISTING LABORER.CSIR Vomiting No 09/16/24 15:24 HOISTING LABORER.CSIR Anesthesia Postop Eval I: Fluid Summary Crystalloid volume administer 1,000 09/16/24 15:24 HOISTING LABORER.CSIR (ml) Colloids volume administered ( ml) Blood Product volume administered (ml) Total IV fluid infused 1,000 09/16/24 15:24 HOISTING LABORER.CSIR Anesthesia Postop Eval I: Summary Notes Anesthesia Complication No 09/16/24 15:24 HOISTING LABORER.CSIR Anesthesia Complication Comment: Post-operative progress note Anesthesia: Postop Eval II Evaluation Mental status: Awake Pain Level: 0 nausea: No Vomiting: No
--- NOTE | 2024-09-16 18:57 | PCM.POSTANE2 ---
Anesthesia Postop Eval I Sum Postop Eval Completion status Anesthesia document: Postop Eval 1 completed: Yes Anesthesia Postop Eval I Summary Anesthesia Postop Eval I Summary: Anesthesia Postop Eval I: Assessment Summary Airway patent Yes 09/16/24 15:24 ELECTRICAL INSTALLATION SUPERVISOR.CSIR Spontaneous unlabored Yes 09/16/24 15:24 ELECTRICAL INSTALLATION SUPERVISOR.CSIR respirations Mental status nausea No 09/16/24 15:24 ELECTRICAL INSTALLATION SUPERVISOR.CSIR Vomiting No 09/16/24 15:24 ELECTRICAL INSTALLATION SUPERVISOR.CSIR Anesthesia Postop Eval I: Fluid Summary Crystalloid volume administer 1,000 09/16/24 15:24 ELECTRICAL INSTALLATION SUPERVISOR.CSIR (ml) Colloids volume administered ( ml) Blood Product volume administered (ml) Total IV fluid infused 1,000 09/16/24 15:24 ELECTRICAL INSTALLATION SUPERVISOR.CSIR Anesthesia Postop Eval I: Summary Notes Anesthesia Complication No 09/16/24 15:24 ELECTRICAL INSTALLATION SUPERVISOR.CSIR Anesthesia Complication Comment: Post-operative progress note Anesthesia: Postop Eval II Evaluation Mental status: Awake Pain Level: 0 nausea: No Vomiting: No
[2024-09-16] MEDS: Atorvastatin Calcium 80 MG Tablet PO (20:05)
[2024-09-16] MEDS: TICAGRELOR 90 MG TABLET PO (20:05)
[2024-09-16] MEDS: Acetaminophen 500 MG Tablet 1000 MG PO (20:05)
[2024-09-16] MEDS: hydroCHLOROthiazide 12.5mg 12.5 MG PO (20:05)
[2024-09-16] MEDS: Lisinopril 10 MG Tablet PO (20:05)
--- NOTE | 2024-09-16 20:15 | CT_ITS ---
INDICATION: recent carotid stent, worsening neuro exam EXAMINATION: CT BRAIN WITHOUT CONTRAST, CTA HEAD, AND CTA NECK TECHNIQUE: Noncontrast axial images were obtained of the brain. Subsequently, routine carotid CT angiogram protocol was performed without and with IV contrast. In addition, images were obtained of the [place]. NASCET criteria using the distal ICAs for comparison were used for evaluation of stenoses. 3D reconstructions were reviewed. The protocol utilizes one or more of the following dose reduction techniques: automated exposure control, adjustment of mA and/or kV according to patient size,and/or use of iterative reconstruction technique. IV Contrast dosage and agent: COMPARISON: August 26, 2024 FINDINGS: --CT BRAIN WITHOUT CONTRAST: BRAIN PARENCHYMA: No intra- or extra-axial hemorrhage. No evidence of acute infarct. 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 No intracranial mass or mass effect. There is preservation of the santos/white matter interface. Posterior fossa structures are unremarkable. CSF SPACES: Prominent with mild atrophy. No hydrocephalus. Basal cisterns are patent. CALVARIUM, SKULL BASE, PARANASAL SINUSES AND MASTOID AIR CELLS: Clear. No discrete lytic or blastic abnormalities. --CTA NECK: AORTIC ARCH AND BRANCHES: Normal anatomy, patent. RIGHT CCA: No occlusion, significant stenosis or dissection. There is a patent stent placed since the previous study with minimal intraluminal thrombus. RIGHT ICA: No occlusion, significant stenosis or dissection. LEFT CCA: No occlusion, significant stenosis or dissection. LEFT ICA: Atherosclerotic calcifications proximally with approximately 75-80 % % stenosis. No occlusion or dissection. RIGHT VERTEBRAL ARTERY: No occlusion, significant stenosis or dissection. LEFT VERTEBRAL ARTERY: Hypoplastic with no occlusion, significant stenosis or dissection. NECK SOFT TISSUES: Right thyroid nodule. --CTA HEAD: --Anterior circulation: ICAs: No significant stenosis at the intracranial/visualized segments. ACAs: Hypoplastic left A1 similar to previous study. ACOM: Present. MCAs: No significant stenosis at the visualized segments. --Posterior circulation: PCOMs: Nonvisualization bilaterally. tank processor: No significant stenosis at the visualized segments. BASILAR ARTERY: No significant stenosis. VERTEBRAL ARTERIES: The left vertebral artery appears to terminate as a PICA. No evidence of intracranial aneurysm or vascular malformation. CT/CTA Head AND Neck W/ Contrast IMPRESSION: Moderate stenosis or proximal left ICA similar to previous study. A right common carotid stent has been placed since the previous study. Electronically Signed: Antione Lema DO at 22:27 EST ,
--- NOTE | 2024-09-16 20:15 | CT_ITS ---
INDICATION: recent carotid stent, worsening neuro exam EXAMINATION: CT BRAIN WITHOUT CONTRAST, CTA HEAD, AND CTA NECK TECHNIQUE: Noncontrast axial images were obtained of the brain. Subsequently, routine carotid CT angiogram protocol was performed without and with IV contrast. In addition, images were obtained of the [place] of [place]. NASCET criteria using the distal ICAs for comparison were used for evaluation of stenoses. 3D reconstructions were reviewed. The protocol utilizes one or more of the following dose reduction techniques: automated exposure control, adjustment of mA and/or kV according to patient size,and/or use of iterative reconstruction technique. IV Contrast dosage and agent: COMPARISON: August 26, 2024 FINDINGS: --CT BRAIN WITHOUT CONTRAST: BRAIN PARENCHYMA: No intra- or extra-axial hemorrhage. No evidence of acute infarct. 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 No intracranial mass or mass effect. There is preservation of the santos/white matter interface. Posterior fossa structures are unremarkable. CSF SPACES: Prominent with mild atrophy. No hydrocephalus. Basal cisterns are patent. CALVARIUM, SKULL BASE, PARANASAL SINUSES AND MASTOID AIR CELLS: Clear. No discrete lytic or blastic abnormalities. --CTA NECK: AORTIC ARCH AND BRANCHES: Normal anatomy, patent. RIGHT CCA: No occlusion, significant stenosis or dissection. There is a patent stent placed since the previous study with minimal intraluminal thrombus. RIGHT ICA: No occlusion, significant stenosis or dissection. LEFT CCA: No occlusion, significant stenosis or dissection. LEFT ICA: Atherosclerotic calcifications proximally with approximately 75-80 % % stenosis. No occlusion or dissection. RIGHT VERTEBRAL ARTERY: No occlusion, significant stenosis or dissection. LEFT VERTEBRAL ARTERY: Hypoplastic with no occlusion, significant stenosis or dissection. NECK SOFT TISSUES: Right thyroid nodule. --CTA HEAD: --Anterior circulation: ICAs: No significant stenosis at the intracranial/visualized segments. ACAs: Hypoplastic left A1 similar to previous study. ACOM: Present. MCAs: No significant stenosis at the visualized segments. --Posterior circulation: PCOMs: Nonvisualization bilaterally. ecommerce analyst: No significant stenosis at the visualized segments. BASILAR ARTERY: No significant stenosis. VERTEBRAL ARTERIES: The left vertebral artery appears to terminate as a PICA. No evidence of intracranial aneurysm or vascular malformation. CT/CTA Head AND Neck W/ Contrast IMPRESSION: Moderate stenosis or proximal left ICA similar to previous study. A right common carotid stent has been placed since the previous study. Electronically Signed: Antione Lema DO at 22:27 EST ,
[2024-09-16] MEDS: HEPARIN/D5w 25,000 UNITS 25,000 UNITS/250 ML IV.SOLN. 12 UNITS CONT INF (21:45)
[2024-09-16 21:54] LABS: Absolute Lymphocyte Count 1.21 X10^3/uL (0.83-4.51); Absolute Neutrophil Count 8.9 X10^3/uL (2.0-7.7); Basophil# 0.05 X10^3/uL; Basophil% 0.5 % (0-1); Eosinophil# 0.02 X10^3/uL; Eosinophils% 0.2 % (0-5); Hematocrit 36.1 % (40-54); Hemoglobin 12.3 g/dL (13.0-16.5); Lymphocyte # 1.21 X10^3/ul (0.83-4.51); Lymphocyte % 11.1 % (19-41); Mean Corp Hgb Conc 34.1 g/dL (32-36); Mean Platelet Vol. 8.5 fl (6.2-12.0); Monocyte# 0.71 X10^3/uL; Monocyte% 6.5 % (0-10); NRBC Flagged by Analyzer 0 % (0-5); Neutrophil % 81.2 % (47-70); Platelet Count 237 K/mm3 (150-450); RBC Distribution Width CV 13.1 % (11.6-14.6); RBC Distribution Width SD 39.1 fl (35.1-43.9); White Blood Count 10.9 K/mm3 (4.4-11.0)
[2024-09-16 22:06] LABS: International Normalized Ratio 1.1; Partial Thromboplast Time 24.1 Seconds (24.1-36.2); Prothrombin Time (Protime)PT. 14.3 SECONDS (11.7-14.9)
[2024-09-16] MEDS: Tamsulosin HCl 0.4 MG Capsule PO (22:16)
[2024-09-16] MEDS: 0.9% Normal Saline (1000mL) 1,000 ML 200 ML IV (23:41)
[2024-09-17] VITALS (17 sets, daily range): BP systolic 107–153; BP diastolic 59–85; PULSE 67–88; RESP 9–15; TEMP 36.4–37.1; O2SAT 95–100; BMI 31.4
[2024-09-17] MEDS: Labetalol (Prefilled) 20 MG/4 ML Vial 10 MG IV (02:15)
[2024-09-17] MEDS: Ondansetron 4 MG/2 ML Vial IV (02:17)
[2024-09-17] MEDS: Pantoprazole Sodium 40 MG Tablet PO (03:03)
[2024-09-17 04:15] LABS: Absolute Lymphocyte Count 1.19 X10^3/uL (0.83-4.51); Absolute Neutrophil Count 6.9 X10^3/uL (2.0-7.7); Basophil# 0.05 X10^3/uL; Basophil% 0.6 % (0-1); Eosinophil# 0.03 X10^3/uL; Eosinophils% 0.3 % (0-5); Hematocrit 34.6 % (40-54); Hemoglobin 11.8 g/dL (13.0-16.5); Lymphocyte # 1.19 X10^3/ul (0.83-4.51); Lymphocyte % 13.3 % (19-41); Mean Corp Hgb Conc 34.1 g/dL (32-36); Mean Corpuscular Volume 82.2 fL (80-94); Mean Platelet Vol. 8.6 fl (6.2-12.0); Monocyte# 0.68 X10^3/uL; Monocyte% 7.6 % (0-10); NRBC Flagged by Analyzer 0 % (0-5); Neutrophil # 6.94 X10^3/uL (2.7-7.7); Neutrophil % 77.8 % (47-70); Platelet Count 223 K/mm3 (150-450); RBC Distribution Width CV 13.2 % (11.6-14.6); RBC Distribution Width SD 39.6 fl (35.1-43.9); Red Blood Count 4.21 M/mm3 (4.6-6.2); White Blood Count 8.9 K/mm3 (4.4-11.0)
[2024-09-17 04:30] LABS: Anion Gap 8 (5-15); BUN 30 mg/dL (7-18); Calcium,Total 8.5 mg/dL (8.5-10.1); Chloride 108 mmol/L (98-107); Creatinine, Serum 1.67 mg/dL (0.70-1.30); EST Glomerular Filtration Rate 43 mL/min (>60); Est Glom Filt Rate - Afr Amer 52 mL/min (>60); Estimated Creatinine Clearance 43.32 ml/min; Glucose 272 mg/dL (74-106); Potassium 3.6 mmol/L (3.5-5.1); Sodium Level 136 mmol/L (136-145)
[2024-09-17] MEDS: Acetaminophen 500 MG Tablet 1000 MG PO ×3 (04:57→21:26)
[2024-09-17] MEDS: Glimepiride 2 MG Tablet PO ×2 (04:57→17:32)
[2024-09-17 05:12] LABS: Partial Thromboplast Time 85.7 Seconds (24.1-36.2)
[2024-09-17] MEDS: hydrALAZINE 20 MG/ML Vial 10 MG IV (05:56)
--- NOTE | 2024-09-17 06:01 | EKG12_ITS ---
Test Reason : DYSP Blood Pressure : */* mmHG Vent. Rate : 88 BPM Atrial Rate : 88 BPM P-R Int : 216 ms QRS Dur : 96 ms QT Int : 388 ms P-R-T Axes : 37 -7 26 degrees QTcB Int : 469 ms Sinus rhythm with 1st degree A-V block Incomplete right bundle branch block Inferior infarct , age undetermined Abnormal ECG When compared with ECG of 17-Sep-2024 06:01, MANUAL COMPARISON REQUIRED DATA IS UNCONFIRMED Confirmed by EDWIN CACERES, GRISELDA ([id number]), managing editor ALVERTO CELESTIN ([id number]) on 09/18/2024 6:01:50 AM Referred By: Sai Pink Confirmed By: GRISELDA PINEDA MD
--- NOTE | 2024-09-17 06:01 | EKG12_ITS ---
Test Reason : DYSP Blood Pressure : */* mmHG Vent. Rate : 87 BPM Atrial Rate : 87 BPM P-R Int : 220 ms QRS Dur : 96 ms QT Int : 388 ms P-R-T Axes : 37 -4 13 degrees QTcB Int : 466 ms Sinus rhythm with 1st degree A-V block Incomplete right bundle branch block Inferior infarct (cited on or before 14-Feb-2023) Abnormal ECG When compared with ECG of 26-Aug-2024 13:51, QT has lengthened Confirmed by EDWIN CACERES, GRISELDA ([id number]), rewrite editor ALVERTO CELESTIN ([id number]) on 09/18/2024 6:01:40 AM Referred By: Sai Pink Confirmed By: GRISELDA PINEDA MD
--- NOTE | 2024-09-17 06:01 | EKG12_ITS ---
Test Reason : DYSP Blood Pressure : */* mmHG Vent. Rate : 88 BPM Atrial Rate : 88 BPM P-R Int : 216 ms QRS Dur : 96 ms QT Int : 388 ms P-R-T Axes : 37 -7 26 degrees QTcB Int : 469 ms Sinus rhythm with 1st degree A-V block Incomplete right bundle branch block Inferior infarct , age undetermined Abnormal ECG When compared with ECG of 17-Sep-2024 06:01, MANUAL COMPARISON REQUIRED DATA IS UNCONFIRMED Confirmed by EDWIN CACERES, GRISELDA ([id number]), photograph editor ALVERTO CELESTIN ([id number]) on 09/18/2024 6:01:50 AM Referred By: Sai Pink Confirmed By: GRISELDA PINEDA MD
--- NOTE | 2024-09-17 06:01 | EKG12_ITS ---
Test Reason : DYSP Blood Pressure : */* mmHG Vent. Rate : 87 BPM Atrial Rate : 87 BPM P-R Int : 220 ms QRS Dur : 96 ms QT Int : 388 ms P-R-T Axes : 37 -4 13 degrees QTcB Int : 466 ms Sinus rhythm with 1st degree A-V block Incomplete right bundle branch block Inferior infarct (cited on or before 14-Feb-2023) Abnormal ECG When compared with ECG of 26-Aug-2024 13:51, QT has lengthened Confirmed by EDWIN CACERES, GRISELDA ([id number]), graphic editor ALVERTO CELESTIN ([id number]) on 09/18/2024 6:01:40 AM Referred By: Sai Pink Confirmed By: GRISELDA PINEDA MD
--- NOTE | 2024-09-17 06:09 | CT_ITS ---
EXAM: CT HEAD WITHOUT INTRAVENOUS CONTRAST CLINICAL INDICATION: recent carotid stenting w/ neuro deficits TECHNIQUE: Multiple axial images were obtained of the head without intravenous contrast. This CT exam was performed using one or more of the following dose reduction techniques: automated exposure control, adjustment of the mA and/or kV according to patient size, and/or use of iterative reconstruction technique. RADIATION DOSE: Total DLP: 812.98 mGy-cm. COMPARISON: Cranial CT of 09/16/2024 and 03/06/2024. FINDINGS: BRAIN AND EXTRA-AXIAL SPACES: There has been interval development of a wedge-shaped area of mildly diminished attenuation with sulcal effacement involving portions of the right MCA distribution, indicating an early/developing ischemic infarction which extends from the posterior superior temporal cortex into the right parietal lobe, with this new area of hypodensity noted on axial images 22-28 of series 2 and parasagittal images 14-21 of series 602. There is no associated parenchymal hemorrhage. The multiple wedge-shaped areas of diminished attenuation within the right occipital cortex are again noted, stable, consistent with encephalomalacia from old infarction. Atrophy and patchy chronic small vessel ischemic changes are again noted. No intracranial mass or mass effect. No midline shift. Posterior fossa structures are unremarkable. No hydrocephalus. Basal cisterns are patent. BONES/JOINTS: No discrete lytic or blastic abnormalities. VASCULATURE: Atherosclerotic vascular calcification is present. The middle cerebral arteries are not hyperdense. SINUSES: Unremarkable as visualized. Clear. MASTOID AIR CELLS: Unremarkable. Clear. ORBITS: Visualized globes, extraocular muscles, optic nerves and retrobulbar fat appear unremarkable. CT/Brain/Head without Contrast IMPRESSION: 1. Wedge-shaped area of developing hypodensity with sulcal effacement involving the posterior aspect of the right MCA distribution indicating developing ischemic infarction. 2. Chronic right occipital encephalomalacia. 3. Atrophy and chronic small vessel ischemic changes again noted. 4. No acute intracranial hemorrhage. Nonstandard communication protocol initiated and completed. N.B. : The above Results were Read Back by Pradip Bray MD to Lyla Norman RN, and understanding confirmed on 09/17/2024 08:10:55 (ET). Electronically Signed: Pradip Bray MD at 8:12 EST ,
[2024-09-17] MEDS: Insulin Lispro 100 UNIT/ML INSULN.PEN SC ×4 (07:45→21:27)
[2024-09-17] MEDS: Lisinopril 10 MG Tablet PO ×2 (07:48→21:26)
[2024-09-17] MEDS: Aspirin 81 MG TAB.CHEW PO (07:48)
[2024-09-17] MEDS: hydroCHLOROthiazide 12.5mg 12.5 MG PO ×2 (07:48→21:26)
[2024-09-17] MEDS: TICAGRELOR 90 MG TABLET PO (07:49)
--- NOTE | 2024-09-17 07:56 | MRI_ITS ---
We are attempting to reach an attending provider to discuss findings. An addendum with communication details will be sent when the communication is complete. STUDY: MRI BRAIN WITHOUT CONTRAST REASON FOR EXAM: Male, 74 years old. s/p R carotid stent, new neuro deficits TECHNIQUE: Standardized multiplanar fat and water weighted pulse sequences were obtained. COMPARISON: CT earlier today FINDINGS: There is mild cerebral atrophy with widening of the extra-axial spaces and ventricular dilatation. There are a limited number of small white matter hyperintensities, distributed throughout the deep white matter tracts of the cerebral hemispheres, consistent with mild chronic white matter ischemic changes. Focal encephalomalacia and gliosis in the posterior right temporal lobe consistent with a chronic infarct. Large wedge-shaped area of T2 hyperintensity within the posterior right parietal lobe demonstrates restricted diffusion consistent with an acute/subacute infarct. Normal bilateral basal ganglia. Normal thalami. There is no extra-axial fluid accumulation. Normal flow voids within the major intracranial circulation suggesting patency by spin echo criteria. Normal sella turcica, pituitary gland, infundibular stalk, optic chiasm and hypothalamus. Normal tectal plate and pineal gland. Normal midbrain, nazia and medulla. Normal cerebellum. Normal basal cisterns. Normal bilateral temporal bones. Normal bilateral internal auditory canals. No demonstrated orbital abnormality, within the constraints of a routine brain study. Normal visualized paranasal sinuses. Normal calvarium and skull base. Normal visualized soft tissue structures. Normal visualized upper cervical spine. MRI/Brain without Contrast IMPRESSION: Acute/subacute infarct in the posterior right parietal lobe. Electronically Signed: Vj Jane MD at 10:49 EST ,
--- NOTE | 2024-09-17 07:56 | MRI_ITS ---
We are attempting to reach an attending provider to discuss findings. An addendum with communication details will be sent when the communication is complete. STUDY: MRI BRAIN WITHOUT CONTRAST REASON FOR EXAM: Male, 74 years old. s/p R carotid stent, new neuro deficits TECHNIQUE: Standardized multiplanar fat and water weighted pulse sequences were obtained. COMPARISON: CT earlier today FINDINGS: There is mild cerebral atrophy with widening of the extra-axial spaces and ventricular dilatation. There are a limited number of small white matter hyperintensities, distributed throughout the deep white matter tracts of the cerebral hemispheres, consistent with mild chronic white matter ischemic changes. Focal encephalomalacia and gliosis in the posterior right temporal lobe consistent with a chronic infarct. Large wedge-shaped area of T2 hyperintensity within the posterior right parietal lobe demonstrates restricted diffusion consistent with an acute/subacute infarct. Normal bilateral basal ganglia. Normal thalami. There is no extra-axial fluid accumulation. Normal flow voids within the major intracranial circulation suggesting patency by spin echo criteria. Normal sella turcica, pituitary gland, infundibular stalk, optic chiasm and hypothalamus. Normal tectal plate and pineal gland. Normal midbrain, nazia and medulla. Normal cerebellum. Normal basal cisterns. Normal bilateral temporal bones. Normal bilateral internal auditory canals. No demonstrated orbital abnormality, within the constraints of a routine brain study. Normal visualized paranasal sinuses. Normal calvarium and skull base. Normal visualized soft tissue structures. Normal visualized upper cervical spine. MRI/Brain without Contrast IMPRESSION: Acute/subacute infarct in the posterior right parietal lobe. Electronically Signed: Vj Jane MD at 10:49 EST ,
[2024-09-17 08:03] LABS: Bedside Glucose 258 mg/dL (74-106)
--- NOTE | 2024-09-17 09:23 | PCM.PN.SRG ---
Subjective Subjective Significant events overnight. Initially left visual field defect at 1700 hrs then left facial and left upper/lower extremity numbness beginning at 1930 hrs with motor intact. Earlier this AM some N/V though that is now better. SOB but he states that began when he started Brilinta. 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, no hemorrhage CT head 09/17-new frontal infarct, old occipital infarct, no hemorrhage Vital Signs: Vital Signs Temp Pulse Resp BP Pulse Ox O2 Del Method 97.6 F L 87 11 L 131/59 H 95 Room Air 09/17/24 06:00 09/17/24 07:00 09/17/24 07:00 09/17/24 07:00 09/17/24 07:59 09/17/24 07:59 Oxygen Delivery Method Room Air Weight: 207 lb 7.28 oz Body Mass Index (BMI) 31.4 Intake & Output: Intake and Output for Last 24 Hours 09/15/24 09/16/24 09/17/24 23:59 23:59 23:59 Intake Total 2984.17 / 3284.17 1590.00 / 1590.00 Output Total 950 / 950 Balance 2984.17 / 2734.17 640.00 / 640.00 Lab / Micro Data 09/17/24 04:05 09/17/24 04:05 Labs: Laboratory Results - last 24 hr 09/16/24 10:37: POC Glucose 240 H 09/16/24 13:32: Activated Clotting Time 343 H 09/16/24 14:11: Activated Clotting Time 291 H 09/16/24 15:07: POC Glucose 164 H 09/16/24 17:42: POC Glucose 182 H 09/16/24 21:40: WBC 10.9, RBC 4.40 L, Hgb 12.3 L, Hct 36.1 L, MCV 82.0, MCH 28.0, MCHC 34.1, RDW Std Deviation 39.1, RDW Coeff of Alyssia 13.1, Plt Count 237, MPV 8.5, Immature Gran % (Auto) 0.500, Neut % (Auto) 81.2 H, Lymph % (Auto) 11.1 L, Carlton % (Auto) 6.5, Eos % (Auto) 0.2, Baso % (Auto) 0.5, Absolute Neuts (auto) 8.9 H, Absolute Lymphs (auto) 1.21, Nucleated RBC % 0, PT 14.3, INR 1.1, APTT 24.1 09/17/24 04:05: WBC 8.9, RBC 4.21 L, Hgb 11.8 L, Hct 34.6 L, MCV 82.2, MCH 28.0, MCHC 34.1, RDW Std Deviation 39.6, RDW Coeff of Alyssia 13.2, Plt Count 223, MPV 8.6, Immature Gran % (Auto) 0.400, Neut % (Auto) 77.8 H, Lymph % (Auto) 13.3 L, Carlton % (Auto) 7.6, Eos % (Auto) 0.3, Baso % (Auto) 0.6, Absolute Neuts (auto) 6.9, Absolute Lymphs (auto) 1.19, Nucleated RBC % 0, APTT 85.7 H, Sodium 136, Potassium 3.6, Chloride 108 H, Carbon Dioxide 20.0 L, Anion Gap 8, BUN 30 H, Creatinine 1.67 H, Estim Creat Clear Calc 43.32, Est GFR (MDRD) Af Amer 52 L, Est GFR (MDRD) Non-Af 43 L, BUN/Creatinine Ratio 18.0, Glucose 272 H, Calcium 8.5 09/17/24 07:40: POC Glucose 258 H Radiography Diagnostic Testing: Radiology Impression Head/Neck CTA 09/16/24 20:15 IMPRESSION: Moderate stenosis or proximal left ICA similar to previous study. A right common carotid stent has been placed since the previous study. Electronically Signed: Antione Lema DO at 22:27 EST Reading Location ID and State: [facility] / [place] Tel [phone], Service support , Brain CT 09/17/24 06:09 IMPRESSION: 1. Wedge-shaped area of developing hypodensity with sulcal effacement involving the posterior aspect of the right MCA distribution indicating developing ischemic infarction. 2. Chronic right occipital encephalomalacia. 3. Atrophy and chronic small vessel ischemic changes again noted. 4. No acute intracranial hemorrhage. Nonstandard communication protocol initiated and completed. N.B. : The above Results were Read Back by Pradip Bray MD to Lyla Norman RN, and understanding confirmed on 09/17/2024 08:10:55 (ET). Electronically Signed: Pradip Bray MD at 8:12 EST , Assessment & Plan Assessment/Plan (1) Recurrent stenosis of right carotid artery: PLAN: -stable visual field defect, patient does not recognize defect unless actively examined; could potentially be old due to prior infarct -numbness improved, motor intact; new CT reveals evidence of early infarct, MRI pending -location of new infarct not likely to cause visual symptoms -small amount of plaque prolapse within stent, likely source of embolic event post-op -will drop heparin to low dose, if no further new neuro changes then discontinue later today -continue dual antiplatelet; SOB with Brilinta, will switch to Effient
--- NOTE | 2024-09-17 09:59 | CASEMGMT ---
RN CM Assessment Face to Face with patient for initial transition planning/care coordination assessment. Pt is currently off of the floor getting an MRI. Pt and and son at bedside and state they can help answer this RN CM's questions for initial assessment. Care providers, pharmacy, and demographics verified. Admitting dx: Recurrent stenosis of Rt Carotid Artery LACE Strata: 2 PCP: [facility] Specialists: Joesph (Vascular), XIOMARA (Cardio), (Endo) Preferred Pharmacy: P Insurance: [facility] A/B, [facility] Prescription Benefit: Yes LNOK: Jodi Ryan (W), Santiago Ryan (Son) Living Arrangements: Pt lives with his in a single story home with a basement with handrails and 2 step to enter the home ADLs/IADLs: states that the pt is completely independent Transportation: Pt, pt DME: Pt states that the pt takes insulin shots and has a CBGM and a backup BGM with sufficient supplies. Pt also has a BP machine. HHC/SNF: Denies Hx or needs. Pt reports pt was recently DC'd from for OP PT for his knee Plan: TBD. MRI is pending. 6-Click is 17. CM to follow for new blood thinning Rx. Pt states that the pt is on Brilinta at home and that they already utilized the savings card. At this time, the pt states that the pt would refuse home needs including HH, OP Tx, or CCN, due to being independent. However, MRI results are pending and PT/OT evaluations are pending. CM will follow. Michael Ryan RN, CM
--- NOTE | 2024-09-17 09:59 | CASEMGMT ---
RN CM Assessment Face to Face with patient for initial transition planning/care coordination assessment. Pt is currently off of the floor getting an MRI. Pt and and son at bedside and state they can help answer this RN CM's questions for initial assessment. Care providers, pharmacy, and demographics verified. Admitting dx: Recurrent stenosis of Rt Carotid Artery LACE Strata: 2 PCP: [facility] Specialists: Joesph (Vascular), XIOMARA (Cardio), (Endo) Preferred Pharmacy: P Insurance: [facility] A/B, [facility] Prescription Benefit: Yes LNOK: Jodi Ryan (W), Santiago Ryan (Son) Living Arrangements: Pt lives with his in a single story home with a basement with handrails and 2 step to enter the home ADLs/IADLs: states that the pt is completely independent Transportation: Pt, pt DME: Pt states that the pt takes insulin shots and has a CBGM and a backup BGM with sufficient supplies. Pt also has a BP machine. HHC/SNF: Denies Hx or needs. Pt reports pt was recently DC'd from for OP PT for his knee Plan: TBD. MRI is pending. 6-Click is 17. CM to follow for new blood thinning Rx. Pt states that the pt is on Brilinta at home and that they already utilized the savings card. At this time, the pt states that the pt would refuse home needs including HH, OP Tx, or CCN, due to being independent. However, MRI results are pending and PT/OT evaluations are pending. CM will follow. Michael Ryan RN, CM
[2024-09-17 11:51] LABS: Bedside Glucose 240 mg/dL (74-106)
--- NOTE | 2024-09-17 14:00 | CHAPLAIN ---
Type of Pastoral Visit _x__ Initial Visit ___ Follow-up Visit ___ On-call Visit ___ General Patient Visit ___ Spiritual Assessment ___ Family Conference ___ Bereavement ___ Rapid Response ___ Code Blue ___ Other (describe below) Pastoral Care Referral From _x__ Patient ___ Family ___ Nurse ___ Physician ___ Fulfillment Associate ___ Title Vehicle Service Attendant ___ Other (describe below) Sacrament/Intervention _x__ Active listening ___ Anointing ___ Uatsdin ___ Bereavement ___ Communion ___ Kenzie exploration ___ _x__ Life review ___ Prayer ___ Reconciliation ___ Sacrament of Sick _x__ Supportive presence ___ Wedding ___ Other (describe below) Pastoral Comments patient is known to this mannequin mounter; pt explains his situation as the best he can at this time; pt admits that he has a headache and has not been able to truly sleep for a couple of days; pt acknowledges feeling miserable; kept the visit short but did talk about life and how he is handling his nursing home; pt declines any further needs from this mannequin mounter; offer of ongoing support given as needed
--- NOTE | 2024-09-17 14:00 | CHAPLAIN ---
Type of Pastoral Visit _x__ Initial Visit ___ Follow-up Visit ___ On-call Visit ___ General Patient Visit ___ Spiritual Assessment ___ Family Conference ___ Bereavement ___ Rapid Response ___ Code Blue ___ Other (describe below) Pastoral Care Referral From _x__ Patient ___ Family ___ Nurse ___ Physician ___ Litigation Legal Assistant ___ Outpatient Therapist ___ Other (describe below) Sacrament/Intervention _x__ Active listening ___ Anointing ___ Scientologist ___ Bereavement ___ Communion ___ Kenzie exploration ___ _x__ Life review ___ Prayer ___ Reconciliation ___ Sacrament of Sick _x__ Supportive presence ___ Wedding ___ Other (describe below) Pastoral Comments patient is known to this reproductive surgeon; pt explains his situation as the best he can at this time; pt admits that he has a headache and has not been able to truly sleep for a couple of days; pt acknowledges feeling miserable; kept the visit short but did talk about life and how he is handling his shelter; pt declines any further needs from this reproductive surgeon; offer of ongoing support given as needed
[2024-09-17] MEDS: Mag Hydrox/Al Hydrox/Simeth 30 ML UDC PO ×2 (14:20→21:44)
[2024-09-17 16:29] LABS: Bedside Glucose 196 mg/dL (74-106)
[2024-09-17] MEDS: Tamsulosin HCl 0.4 MG Capsule PO (17:32)
[2024-09-17] MEDS: Atorvastatin Calcium 80 MG Tablet PO (21:26)
[2024-09-17 21:47] LABS: Bedside Glucose 195 mg/dL (74-106)
[2024-09-18] VITALS (8 sets, daily range): BP systolic 89–110; BP diastolic 58–67; PULSE 65–73; RESP 15–16; TEMP 36.6–36.8; O2SAT 93–98; BMI 31.6
[2024-09-18] MEDS: Acetaminophen 500 MG Tablet 1000 MG PO ×2 (05:28→14:19)
[2024-09-18] MEDS: Insulin Lispro 100 UNIT/ML INSULN.PEN SC ×2 (08:14→11:39)
[2024-09-18] MEDS: Aspirin 81 MG TAB.CHEW PO (08:15)
[2024-09-18] MEDS: Glimepiride 2 MG Tablet PO (08:15)
[2024-09-18] MEDS: Pantoprazole Sodium 40 MG Tablet PO (08:16)
[2024-09-18] MEDS: Enoxaparin 40 MG/0.4 ML Syringe SC (08:16)
[2024-09-18] MEDS: Lisinopril 10 MG Tablet PO (08:16)
[2024-09-18] MEDS: hydroCHLOROthiazide 12.5mg 12.5 MG PO (08:16)
[2024-09-18 08:29] LABS: Bedside Glucose 173 mg/dL (74-106)
[2024-09-18 11:59] LABS: Bedside Glucose 276 mg/dL (74-106)
--- NOTE | 2024-09-18 12:28 | PCM.PN.SRG ---
Subjective Subjective Patient was seen resting comfortably in bedside chair this morning. He felt much better today compared to yesterday, reports he got better sleep last night. His shortness of breath has resolved since stopping Brilinta. He reports normal sensation in his left extremities and the left side of his face. He reports normal strength through the left side. He reports he does not notice significant visual change until we specifically test it here. His harris was removed early this morning, has not yet voided. He denies headache. No other complaints. He is eager to go home. Objective Data Objective Data Vital Signs: Vital Signs Temp Pulse Resp BP Pulse Ox O2 Del Method 98.3 F 65 16 107/63 97 Room Air 09/18/24 05:58 09/18/24 05:58 09/18/24 05:58 09/18/24 05:58 09/18/24 11:23 09/18/24 07:33 Oxygen Delivery Method Room Air Weight: 208 lb 5.389 oz Body Mass Index (BMI) 31.6 Intake & Output: Intake and Output for Last 24 Hours 09/16/24 09/17/24 09/18/24 23:59 23:59 23:59 Intake Total 2984.17 / 3284.17 1636.07 / 1636.07 Output Total 2100 / 2100 600 / 600 Balance 2984.17 / 2734.17 -463.93 / -463.93 -600 / -600 Lab / Micro Data 09/17/24 04:05 09/17/24 04:05 Labs: Laboratory Results - last 24 hr 09/17/24 16:04: POC Glucose 196 H 09/17/24 21:24: POC Glucose 195 H 09/18/24 08:09: POC Glucose 173 H 09/18/24 11:37: POC Glucose 276 H Physical Exam Narrative Const oriented x3 and no apparent distress HEENT normocephalic, hearing grossly normal bilaterally and external ears normal Eyes General Eye: normal appearance of both eyes Neck Neck Narrative: R neck incision site with skin glue intact, well-healing. No dehiscence, drainage, erythema, excess warmth. Mild edema. Resp normal respiratory effort Cardio regular rate and regular rhythm Extremity normal to inspection and no clubbing, cyanosis or edema Skin no rashes or lesions noted Neuro Neuro Narrative: left lateral visual field defect unchanged left arm, leg, and face sensation now normal left upper and lower extremity strength intact Speech: speech normal Psych mental status grossly normal Appearance: grossly normal Attitude: calm and engaged Activity / Motor Behavior: appropriate eye contact Speech: normal speech Mood & Affect: euthymic mood Judgement: judgement good Assessment & Plan Assessment/Plan (1) Recurrent stenosis of right carotid artery: PLAN: His left sided sensation seems to have returned to baseline, no remaining deficit. He has normal strength on exam through his left extremities. He has stable visual field defect and does not recognize the defect unless actively examined. PT did note however that he would veer left and needed cues to scan left. Speech therapy had him on a pureed diet following their evaluation yesterday. He has been tolerating this diet without issues. Harris was removed this morning. Has not voided yet, will monitor. He has remained hemodynamically stable. The incision site is satisfactory in appearance. Anticipate discharge later today after he works with therapy again and ensuring he is able to void without harris. He will need further PT, outpatient or .
--- NOTE | 2024-09-18 12:29 | PCM.DC.SUM ---
Providers Date of Admission: 09/16/24 Primary Care Physician: Dr. 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5 mg tablet 1 tab PO BID HTN #180 tabs 04/07/24 rosuvastatin 40 mg tablet 40 mg PO DAILY HDL #90 tabs 06/04/24 insulin degludec 200 unit/mL (3 mL) subcutaneous pen (Tresiba FlexTouch U-200 insulin) 21 unit subcut DAILY DIABETES 06/18/24 pantoprazole 40 mg tablet,delayed release 40 mg PO QDAY GERD #90 tabs 07/10/24 aspirin 81 mg capsule 81 mg PO QDAY SUPPLEMENT #30 caps 09/08/24 insulin aspart (niacinamide)(U-100) 100 unit/mL(3 mL) subcutaneous pen (Fiasp FlexTouch U-100 Insulin) 18 unit subcut LUNCH DIABETES 09/10/24 insulin aspart (niacinamide)(U-100) 100 unit/mL(3 mL) subcutaneous pen (Fiasp FlexTouch U-100 Insulin) 19 unit subcut DAILY DIABETES 09/10/24 insulin aspart (niacinamide)(U-100) 100 unit/mL(3 mL) subcutaneous pen (Fiasp FlexTouch U-100 Insulin) 19 unit subcut QPM DIABETES 09/10/24 prasugrel 10 mg tablet 10 mg PO DAILYCM 30 days #30 tabs 09/18/24 Hospital Course Operations - (R TCAR) Summary of Care Provided Hospital Course: Kirk Ryan is a 74 y/o male who presented for planned R TCAR to address severe recurrent R ICA stenosis. Following the procedure, his initial neuro exam was intact; however, subsequent exam on arrival to ICU suggested homonymous hemianopsia though patient did not notice vision loss unless being actively examined. CT was obtained which showed no change from preoperative CT but did show old R occipital infarct so initially felt this vision defect may have been from his old stroke just never recognized. A few hours later, he developed decreased sensation to his L side. Repeat head CT was obtained then which suggested evolving acute infarct in the posterior R MCA distribution. Brain MRI confirmed acute R parietal stroke. Today, his decreased sensation had resolved. He has retained strength and motor function through the left extremities. His visual field deficit has remained stable. PT noted some neglect as well but he did improve from yesterday to today in his PT session. Teleneurology was consulted and overall agreed with current management including statin, DAPT, PT/OT. They advised the patient should not drive until cleared by OT and formal driving eval. He has remained hemodynamically stable throughout his admission. He did report significant SOB since starting the Brilinta and this was adding to his overall discomfort and inability to sleep. For this reason, decided to discontinue Brilinta and changed to Effient. His dyspnea improved quickly after discontinuing Brilinta, has been tolerating Effient well to this point. Also continuing ASA. His R neck incision site has been satisfactory in appearance, well-healing so far. Rudolph catheter was removed this morning and he was able to void successfully. He has had minimal pain, well controlled with tylenol alone. He has been tolerating diet. ST re-evaluated and did advance him to a regular diet but recommended further ST as an outpatient. Outpatient PT/OT also recommended. CHRISTELLE coordinated PT/OT/ST. He is discharged to home with his in medically stable condition with [facility] in place and outpatient follow-up scheduled for 10/03/2023. Physical Exam Const oriented x3 and no apparent distress HEENT normocephalic, hearing grossly normal bilaterally and external ears normal Eyes General Eye: normal appearance of both eyes Neck Neck Narrative: R neck incision site with skin glue intact, well-healing. No dehiscence, drainage, erythema, excess warmth. Mild edema. Resp normal respiratory effort Cardio regular rate and regular rhythm Extremity normal to inspection and no clubbing, cyanosis or edema Skin no rashes or lesions noted Neuro Neuro Narrative: left lateral visual field defect unchanged left arm, leg, and face sensation now normal left upper and lower extremity strength intact Speech: speech normal Psych mental status grossly normal Appearance: grossly normal Attitude: calm and engaged Activity / Motor Behavior: appropriate eye contact Speech: normal speech Mood & Affect: euthymic mood Judgement: judgement good Weight / BMI Weight Weight: 208 lb 5.389 oz Body Mass Index (BMI) 31.6 ABG / Lab / Microbiology Data 09/17/24 04:05 09/17/24 04:05 Laboratory: Laboratory Results - last 24 hr 09/17/24 21:24: POC Glucose 195 H 09/18/24 08:09: POC Glucose 173 H 09/18/24 11:37: POC Glucose 276 H D/C Instructions Discharge Diet: No restrictions May shower in (days): 1 Weight Bearing Status: Weight bearing as tolerated Lifting Restricted to (Lbs): 20 Lifting Restrictions: Do not lift greater than 20 pounds for 3 weeks Call your doctor if your incision/area has: Sudden Increased Bleeding, Increased Pain/ Swelling and Foul Smelling Discharge Call your doctor if you observe: Fever of 101 or Higher and Uncontrolled pain Remove Dressing in: 1 day DC O2, CPAP, BIPAP Needs Home O2 Discharge instructions: No Additional Instructions: You have a small bandage over the site from which the surgical drain was removed and a small bandage over the R groin puncture site. You may remove both bandages tomorrow. As long as there is no residual drainage, you may leave this open to air. If you do notice some continued drainage, you may re-cover with a Band-Aid. Your incision site is covered with skin glue which will continue to protect it. The skin glue will peel/flake off on its own over the next few weeks. Please do not pick at it. You may shower tomorrow. It is okay for soap and water to rinse over the incision site, pat to dry. Do not submerge the incision site in water such as to take a bath or go swimming etc. for 3 weeks. Do not lift greater than 20 pounds for 3 weeks. Otherwise, please continue with activity as tolerated. Do not drive until you can turn your head well enough to safely check your blind spots. You may continue to take Tylenol as needed for pain. You are scheduled for follow-up in the office on October 03 2024 at 11 AM. If you need to change this appointment or have any other questions/concerns, please contact the office at [phone] to make your appointment. Please call or return to the office sooner as needed. Please Follow Up With: Belen Burciaga PA When: 10/03/2023 at 11 AM Meaningful Use Info Meaningful Use Meaningful Use Diagnoses (Choose all that apply): None applicable Ischemic Stroke Statin Dosing Therapy Reference: STATIN DOSE THERAPY REFERENCE: * Patients > 75 years receive moderate or high dose statin therapy. * Patients 75 years or YOUNGER should receive HIGH intensity statin dose unless contraindicated. You will be required to document reason for non-treatment if statin daily dose does not meet guidelines. HIGH DOSE STATIN THERAPY DAILY Atorvastatin > than or = to 40 mg Rosuvastatin > than or = to 20 mg Amlodipine + Atorvastatin > than or = to 2.5/40 mg Ezetimibe + Simvastatin 10/80 mg Simvastatin 80mg Discharge Plan Admission Admit Date/Time: 09/16/24 09:29 Attending Provider: Sai Pink Primary Care Provider: Severino Hylton Consulting Providers: Beck Dai; Tory Quintanilla; Sally Palomares; Belen Markham; Joseline Patel; Stone Calderón; Lornee Benavides; Cr Cody; Ulisses Delgado; Henrry Guardado; Monet Guzmán; Michael Moore; Tammi Day; Chapo Randhawa; Parisa Martin; Clayton Shepard; Francisca Rodriguez; Sammy Pettit; Neisha Mclaughlin; Brittany Stark Instructions Additional Instructions / Restrictions: You have a small bandage over the site from which the surgical drain was removed and a small bandage over the R groin puncture site. You may remove both bandages tomorrow. As long as there is no residual drainage, you may leave this open to air. If you do notice some continued drainage, you may re-cover with a Band-Aid. Your incision site is covered with skin glue which will continue to protect it. The skin glue will peel/flake off on its own over the next few weeks. Please do not pick at it. You may shower tomorrow. It is okay for soap and water to rinse over the incision site, pat to dry. Do not submerge the incision site in water such as to take a bath or go swimming etc. for 3 weeks. Do not lift greater than 20 pounds for 3 weeks. Otherwise, please continue with activity as tolerated. Do not drive until you can turn your head well enough to safely check your blind spots. You may continue to take Tylenol as needed for pain. You are scheduled for follow-up in the office on October 03 2024 at 11 AM. If you need to change this appointment or have any other questions/concerns, please contact the office at [phone] to make your appointment. Please call or return to the office sooner as needed. Discharge Orders/Prescriptions Prescriptions: New prasugrel 10 mg Tablet 10 mg PO DAILYCM 30 Days Qty: 30 2RF Continued dulaglutide 3 mg/0.5 mL pen injector 4.5 mg subcut QWEEK insulin degludec [Tresiba FlexTouch U-200] 200 unit/mL (3 mL) insulin pen 21 unit subcut DAILY Rx Instructions: AM aspirin 81 mg capsule 81 mg PO QDAY Qty: 30 11RF (DME) blood-glucose meter 1 EACH kit See Rx Instructions .Route .MEDSUPPLY Rx Instructions: check blood glucose daily for type 2 DM Fiasp FlexTouch U-100 Insulin 100 unit/mL (3 mL) insulin pen 19 unit subcut DAILY MDD 70 Rx Instructions: subcutaneously three times a day; 17 units in AM; 16 units at Lunch; 17 at dinnertime, plus sliding scale Fiasp FlexTouch U-100 Insulin 100 unit/mL (3 mL) insulin pen 18 unit subcut LUNCH Fiasp FlexTouch U-100 Insulin 100 unit/mL (3 mL) insulin pen 19 unit subcut QPM (DME) blood sugar diagnostic Strip 1 % .Route .MEDSUPPLY Qty: 300 3RF Rx Instructions: lancets-As directed with device up to 3 times daily (DME) FreeStyle Test Strip See Rx Instructions .ROUTE .MEDSUPPLY Qty: 300 3RF Rx Instructions: use to test blood sugar 3 times a day Dx E11 Diabetes glimepiride 2 mg tablet 2 mg PO BID Qty: 180 2RF lisinopril-hydrochlorothiazide 10-12.5 mg tablet 1 tab PO BID Qty: 180 1RF rosuvastatin 40 mg tablet 40 mg PO DAILY Qty: 90 3RF pantoprazole 40 mg tablet,delayed release (DR/EC) 40 mg PO QDAY Qty: 90 3RF Rx Instructions: dm Discontinued Brilinta 90 mg tablet 90 mg PO BID Qty: 60 1RF Referrals / Follow Up: Severino Hylton MD [Primary Care Provider] - Disposition Disposition (needs filled in before D/C Order can be placed): Home, Self Care
--- NOTE | 2024-09-18 12:35 | CASEMGMT ---
Addendum entered by Rema Ryan 09/18/24 14:05: Lyla from [facility] returns calls and states that they will be able to accept the pt for SOC on Sunday, September 22. SN has also been added to the referral d/t recent infarct. Pt and pt updated and deny further needs at this time. Pt RN updated. YESSENIA updated. Addendum entered by Rema Ryan 09/18/24 13:15: Lj from [facility] has delivered the FWW to the pt room. Lyla from [facility] states that they will likely be able to accept the pt but will let this RN CM know for certain when able. Will follow. Original Note: PT, OT, and ST are recommending additional therapy for the pt. Pt is also requesting a FWW. Pt is projected for DC today. A verbal list of local in-network DME companies provided to the pt at this time. Prefers [facility]. Rx signed by Belen Burciaga (YESSENIA). Referral with Rx send to [facility] at this time. Awaiting return response. Copy of Rx placed in pt chart. Initially, the pt was agreeable to attending OP therapy at [facility]. Rx for OP ST, PT, and OT signed by Belen. Copy placed in pt chart. However, after further discussion with the pt, pt , and Belen, the pt has opted to prefer [facility]. This RN CM educated the pt and the pt regarding homebound status. Pt and pt state understanding and that they would prefer home care rather than worrying about driving in the winter time. Pt and pt decline wanting to review a list of local in-network [facility] agencies and state that they would prefer [facility]. TC to [facility]. No answer, VM left with pt information for referral for ST, PT, & OT. Awaiting return response. Belen updated and aware of plan. CM to follow.
--- NOTE | 2024-09-18 12:35 | CASEMGMT ---
Addendum entered by Rema Ryan 09/18/24 14:05: Lyla from [facility] returns calls and states that they will be able to accept the pt for SOC on Sunday, September 22. SN has also been added to the referral d/t recent infarct. Pt and pt updated and deny further needs at this time. Pt RN updated. YESSENIA updated. Addendum entered by Rema Ryan 09/18/24 13:15: Lj from [facility] [place] the FWW to the pt room. Lyla from [facility] states that they will likely be able to accept the pt but will let this RN CM know for certain when able. Will follow. Original Note: PT, OT, and ST are recommending additional therapy for the pt. Pt is also requesting a FWW. Pt is projected for DC today. A verbal list of local in-network DME companies provided to the pt at this time. Prefers [facility]. Rx signed by Belen Burciaga (YESSENIA). Referral with Rx send to [facility] at this time. Awaiting return response. Copy of Rx placed in pt chart. Initially, the pt was agreeable to attending OP therapy at [facility]. Rx for OP ST, PT, and OT signed by Belen. Copy placed in pt chart. However, after further discussion with the pt, pt , and Belen, the pt has opted to prefer [facility]. This RN CM educated the pt and the pt regarding homebound status. Pt and pt state understanding and that they would prefer home care rather than worrying about driving in the winter time. Pt and pt decline wanting to review a list of local in-network [facility] agencies and state that they would prefer [facility]. TC to [facility]. No answer, VM left with pt information for referral for ST, PT, & OT. Awaiting return response. Belen updated and aware of plan. CM to follow.
--- NOTE | 2024-09-18 13:14 | CASEMGMT ---
Social Work SW met with pt and completed PHQ9 depression screen due to stroke. PHQ9 score of 2 indicating minimal depression. SW educated pt to correlation to stroke and depression. Pt denies any other questions at this time. LIZ Powell
--- NOTE | 2024-09-18 13:33 | STROKE.CONS ---
Assessment and Plan: Stroke Assessment/Plan REJI JUSTICE is a 74 M with a history of R carotid stenoses, TIAs, HLD, HTN, DM2 who presented on 09/16 for carotid revascularizaiton in the setting of severe stenosis and recurrent TIAs. Yesterday was noted by therapy to have a visual field deficit. History suggestive of a R parietal stroke which can have minimal symptoms due to a component of neglect. Exam with homonymous hemianopsia and neglect present. Etiology of event given was shortly noticed after procedure is likely procedural or related to the in-stent defect seen - Anti-platelet medication: agree with DAPT - would rec brilinta or plavix with ASA. Standard practice at [facility] is to check a P2Y12 to determine therapeutic range adrian in setting of an in-stent defect, however will defer to Vascular Surgery standard practice at [place] as there are no clear guidelines re this practice - Occupational/ Physical therapy consults - DVT prophylaxis with SCDs and heparin SQ - Vascular risk factor modification. The following are the recommended guidelines: LDL Goal < 70 Smoking Cessation Diabetes Management senior care blood pressure control should achieve <130/80 mmHg. BP management should aim to achieve [facility] in a reasonable amount of time, taking into consideration the individual patient's requirements and characteristics. Weight Management: Goal for BMI is 18.5 -24.9 kg/m2 Alcohol: No more than 2 drinks/day for men or 1 drink/day for non- women - Promote lifestyle modification: weight control, physical activity, moderation of alcohol intake, moderate sodium intake. Re patient's driving, given the neglect and extent of VF deficit, recommend no driving until cleared by OT and formal driving eval. This was discussed with the patient Followup with PCP in 1-2 weeks, and in Neurology clinic in 6-12 weeks HPI Consult Data Date of Consult: 09/18/24 HPI Narrative HPI Narrative: Patient came to the hospital on Sunday - he had an episode Sunday before . Scheduled carotid stent placed on Sunday. Went into procedure and came out of procedure and felt fine. PT noted that his vision had an issues while walking down the [place]. Has never had a full stroke, only had a TIAs. Was started on Brilinta outpt and was baby ASA. [facility] Medical History Wears glasses Cancer Alcohol use Insulin dependent diabetes mellitus History of renal disease Restless legs Dietary restriction Non-smoker Shortness of breath on exertion History of stress test Cardiology follow-up encounter Syncope History of Holter monitoring Flu vaccine need Left knee pain BPH (benign prostatic hyperplasia) History of Mohs micrographic surgery for skin cancer Osteoarthritis Obesity Health care maintenance Overweight (BMI 25.0-29.9) Carotid stenosis, bilateral Right hip pain Hyperlipidemia Type 2 diabetes mellitus Vision problems Skin cancer GERD (gastroesophageal reflux disease) High cholesterol HTN (hypertension) Seasonal allergies Arthritis Home Medications ?Medication ?Instructions ?Recorded ?Last Taken ?Type blood-glucose meter 12/01/20 Unknown History blood sugar diagnostic #300 ea 08/12/21 Unknown Rx blood sugar diagnostic (FreeStyle #300 ea 12/11/22 Unknown Rx Test strips) dulaglutide 3 mg/0.5 mL 4.5 mg subcut QWEEK DIABETES 04/27/23 09/05/24 History subcutaneous pen injector glimepiride 2 mg tablet 2 mg PO BID DIABETES #180 tabs 03/24/24 09/15/24 Rx lisinopril 10 1 tab PO BID HTN #180 tabs 04/07/24 09/15/24 Rx mg-hydrochlorothiazide 12.5 mg tablet rosuvastatin 40 mg tablet 40 mg PO DAILY HDL #90 tabs 06/04/24 09/15/24 Rx insulin degludec 200 unit/mL (3 21 unit subcut DAILY DIABETES 06/18/24 09/15/24 History mL) subcutaneous pen (Tresiba FlexTouch U-200 insulin) pantoprazole 40 mg tablet,delayed 40 mg PO QDAY GERD #90 tabs 07/10/24 09/16/24 Rx release aspirin 81 mg capsule 81 mg PO QDAY SUPPLEMENT #30 caps 09/08/24 09/16/24 Rx insulin aspart 18 unit subcut LUNCH DIABETES 09/10/24 09/15/24 History (niacinamide)(U-100) 100 unit/mL(3 mL) subcutaneous pen (Fiasp FlexTouch U-100 Insulin) insulin aspart 19 unit subcut DAILY DIABETES 09/10/24 Unknown History (niacinamide)(U-100) 100 unit/mL(3 mL) subcutaneous pen (Fiasp FlexTouch U-100 Insulin) insulin aspart 19 unit subcut QPM DIABETES 09/10/24 09/15/24 History (niacinamide)(U-100) 100 unit/mL(3 mL) subcutaneous pen (Fiasp FlexTouch U-100 Insulin) prasugrel 10 mg tablet 10 mg PO DAILYCM 30 days #30 tabs 09/18/24 Unknown Rx Allergy/AdvReac Type Severity Reaction Status Date / Time Penicillins Allergy Severe Rash Verified 09/16/24 10:15 Family History Mother Breast cancer Myocardial infarction Hypertension Diabetes Heart disease CAD (coronary artery disease) Father Myocardial infarction Surgical History H/O eye surgery History of right-sided carotid endarterectomy History of esophageal dilatation History of esophagogastroduodenoscopy (EGD) Social History Smoking Status: Never smoker second hand exposure: No alcohol intake: current alcohol intake frequency: a few times a month Alcohol type: beer substance use type: does not use caffeine: Yes what type of physical activity do you participate in: aerobics and weight training frequency: 3-4 times per week Vital Signs Vital Signs Vital Signs: 09/17/24 15:30 09/17/24 15:36 09/17/24 16:35 Temperature 98.7 F Temperature Source Temporal Pulse Rate 82 Pulse Strength Respiratory Rate 11 L Respiratory Effort Short of Breath Respiratory Depth Normal Respiratory Pattern Normal Blood Pressure 136/85 H Blood Pressure Mean 102 Blood Pressure Source Blood Pressure Position Blood Pressure Location Pulse Ox 99 98 Oxygen Delivery Method Room Air Room Air 09/17/24 21:00 09/17/24 21:30 09/17/24 22:00 Temperature 98.3 F Temperature Source Temporal Pulse Rate 76 67 Pulse Strength Normal (2+) Respiratory Rate 14 Respiratory Effort Respiratory Depth Respiratory Pattern Blood Pressure 107/64 Blood Pressure Mean 78 Blood Pressure Source Blood Pressure Position Blood Pressure Location Pulse Ox 98 Oxygen Delivery Method Room Air 09/17/24 23:00 09/18/24 00:00 09/18/24 03:00 Temperature 98.3 F Temperature Source Temporal Pulse Rate 72 69 Pulse Strength Respiratory Rate 15 Respiratory Effort Normal Non-Labored Respiratory Depth Normal Respiratory Pattern Normal Blood Pressure 110/67 Blood Pressure Mean 81 Blood Pressure Source Blood Pressure Position Blood Pressure Location Pulse Ox 98 Oxygen Delivery Method Room Air Room Air 09/18/24 03:21 09/18/24 03:30 09/18/24 05:30 Temperature 97.9 F 98.3 F Temperature Source Temporal Temporal Pulse Rate 73 65 Pulse Strength Respiratory Rate 15 16 Respiratory Effort Normal Non-Labored Respiratory Depth Normal Respiratory Pattern Normal Blood Pressure 89/58 L 107/63 Blood Pressure Mean 68 77 Blood Pressure Source Monitor Monitor Blood Pressure Position Semi-Fowlers Semi-Fowlers Blood Pressure Location Left Arm Left Arm Pulse Ox 96 97 Oxygen Delivery Method Room Air Room Air Room Air 09/18/24 05:58 09/18/24 07:33 09/18/24 11:23 Temperature 98.3 F Temperature Source Temporal Pulse Rate 65 Pulse Strength Respiratory Rate 16 Respiratory Effort Respiratory Depth Respiratory Pattern Blood Pressure 107/63 Blood Pressure Mean 77 Blood Pressure Source Blood Pressure Position Blood Pressure Location Pulse Ox 97 93 97 Oxygen Delivery Method Room Air Room Air Weight Weight: 94.5 kg Body Mass Index (BMI) 31.6 EEG Results Procedure Details EEG Procedure Details: REJI JUSTICE is a 74 year old M with a past medical history of , who presents for evaluation of Electroencephalogram on DATE at TIME NIHSS NIHSS 1a. Level of Consciousness: Alert; keenly responsive 1b. LOC Questions: Answers BOTH questions correctly. 1c. LOC Commands: Performs both tasks correctly. 2. Best Gaze: Normal 3. Visual: Complete hemianopia 4. Facial Palsy: Minor paralysis (flattened nasolabial fold, asymmetry on smiling) 5a. Left Arm: No drift; arm holds 90 (or 45) degrees for full 10 seconds 5b. Right Arm: No drift; arm holds 90 (or 45) degrees for full 10 seconds 6a. Left Leg: No drift; leg holds 30-degree position for full 5 seconds 6b. Right Leg: No drift; leg holds 30-degree position for full 5 seconds 7. Limb Ataxia: Absent 8. Sensory: Normal; no sensory loss 9. Best Language: No aphasia; normal 10. Dysarthria: Normal 11. Extinction and Inattention: Visual, tactile, auditory, spatial, or personal inattention Total: 4 Lab / Micro Data 09/17/24 04:05 09/17/24 04:05 Labs: Laboratory Results - last 24 hr 09/17/24 16:04: POC Glucose 196 H 09/17/24 21:24: POC Glucose 195 H 09/18/24 08:09: POC Glucose 173 H 09/18/24 11:37: POC Glucose 276 H Active Medications Active Medications Active Medications: Current Medications Generic Name Dose Route Start Last Admin Trade Name Freq PRN Reason Stop Dose Admin Acetaminophen 1,000 mg 09/16/24 22:00 09/18/24 05:28 Acetaminophen 500 Mg Tablet PO 1,000 mg Q8 DAWIT Administration Al Hydroxide/Mg Hydroxide 30 ml 09/17/24 06:10 09/17/24 21:44 Mag Hydrox/Al Hydrox/Simeth 30 Ml Udc PO 30 ml Q4H PRN PRN Administration HEARTBURN OR INDIGESTION Albuterol Sulfate 2.5 mg 09/16/24 15:29 Albuterol 2.5 Mg/3 Ml Vial.Neb. INHALATION Q2H PRN PRN SOB &/OR WHEEZING Aspirin 81 mg 09/17/24 08:00 09/18/24 08:15 Aspirin 81 Mg Tab.Chew PO 81 mg DAILYCM DAWIT Administration Atorvastatin Calcium 80 mg 09/16/24 22:00 09/17/24 21:26 Atorvastatin Calcium 80 Mg Tablet PO 80 mg QHS DAWIT Administration Docusate Sodium 100 mg 09/16/24 15:29 Docusate Sodium 100 Mg Capsule PO BID PRN PRN Constipation Enoxaparin Sodium 40 mg 09/17/24 10:00 09/18/24 08:16 Enoxaparin 40 Mg/0.4 Ml Syringe SC 40 mg DAILY DAWIT Administration Glimepiride 2 mg 09/17/24 05:00 09/18/24 08:15 Glimepiride 2 Mg Tablet PO 2 mg BIDCM DAWIT Administration Glucagon 1 mg 09/16/24 15:29 Glucagon 1 Mg/Ml Syringe IM X1 PRN HYPOGLYCEMIA Protocol Guaifenesin 10 ml 09/16/24 15:29 Guaifenesin 10 Ml Udc (200mg/10ml) PO Q4H PRN PRN COUGH Heparin Sodium (Porcine) 0 unit 09/16/24 21:15 Heparin Injection (Vial) 5,000 Unit/Ml Vial IV UD PRN dose adjustment Protocol Hydralazine HCl 10 mg 09/16/24 15:29 09/17/24 05:56 Hydralazine 20 Mg/Ml Vial IV 10 mg Q2H PRN PRN Administration SBP > 140mmHg Hydrochlorothiazide 12.5 mg 09/16/24 22:00 09/18/24 08:16 Hydrochlorothiazide 12.5mg PO 12.5 mg BID DAWIT Administration Hydromorphone HCl 0.5 mg 09/16/24 15:29 Hydromorphone 0.5 Mg/0.5 Ml Syringe IV Q3H PRN PRN Pain Score 6-10 Dextrose 250 mls @ 0 mls/hr 09/16/24 15:29 Dextrose 10%-Water IV .Q0M PRN HYPOGLYCEMIA Protocol As Directed Sodium Chloride 100 mls @ 15 mls/hr 09/16/24 17:03 IV .Q6H40M PRN Saline Flush Sodium Chloride 100 mls @ 15 mls/hr 09/16/24 17:03 IV .Q6H40M PRN Additional IVPB Infusion Insulin Human Lispro 0 unit 09/16/24 16:00 09/18/24 11:39 Insulin Lispro 100 Unit/Ml Insuln.Pen SC 4 units ACHS DAWIT Administration Protocol Labetalol HCl 10 mg 09/16/24 15:29 09/17/24 02:15 Labetalol (Prefilled) 20 Mg/4 Ml Vial IV 10 mg Q2H PRN PRN Administration SBP > 140mmHg Lisinopril 10 mg 09/16/24 22:00 09/18/24 08:16 Lisinopril 10 Mg Tablet PO 10 mg BID DAWIT Administration Ondansetron HCl 4 mg 09/16/24 15:29 09/17/24 02:17 Ondansetron 4 Mg/2 Ml Vial IV 4 mg Q8H PRN PRN Administration NAUSEA/VOMITING Oxycodone HCl 5 mg 09/16/24 15:29 Oxycodone 5 Mg Tablet PO Q4H PRN PRN Pain Score 4-10 Pantoprazole Sodium 40 mg 09/17/24 10:00 09/18/24 08:16 Pantoprazole Sodium 40 Mg Tablet PO 40 mg DAILY DAWIT Administration Prasugrel 10 mg 09/18/24 08:00 09/18/24 08:15 Prasugrel Hydrochloride 10 Mg Tablet PO 10 mg DAILYCM DAWIT Administration Sodium Chloride 10 - 40 ml 09/16/24 17:03 0.9% Saline Lock 10 Ml Syringe IV UD PRN SALINE FLUSH Tamsulosin HCl 0.4 mg 09/16/24 22:10 09/17/24 17:32 Tamsulosin Hcl 0.4 Mg Capsule PO 0.4 mg DAILY@1730 DAWIT Administration Throat Lozenges 1 lozenge 09/16/24 15:29 Benzocaine/Menthol 1 Lozenge MUCOUS MEM Q2H PRN PRN SORE THROAT
== END 2024-09-18 14:58 | disposition home health service (06) | DRG 34 ==
LOC: ICU 09-18 14:25 → ACINP 09-22 10:34
PROVIDERS: Admitting Provider Surgery Trauma Surgery; PCP Internal Medicine; Referring Provider Surgery Trauma Surgery; Visit Provider Surgery Trauma Surgery
PROC: 037K3EZ Dilation of Right Internal Carotid Artery with Two Intraluminal Devices, Percutaneous Approach (ICD-10-PCS; CPT 37236; principal; 2024-09-16 11:00)
DX: I65.21 Occlusion and stenosis of right carotid artery (principal); I63.411 Cerebral infarction due to embolism of right middle cerebral artery; G81.94 Hemiplegia, unspecified affecting left nondominant side; I97.821 Postprocedural cerebrovascular infarction following other surgery; E11.9 Type 2 diabetes mellitus without complications; I10 Essential (primary) hypertension; I69.312 Visuospatial deficit and spatial neglect following cerebral infarction; H53.47 Heteronymous bilateral field defects; Z79.4 Long term (current) use of insulin; E78.00 Pure hypercholesterolemia, unspecified; Z79.02 Long term (current) use of antithrombotics/antiplatelets; Z79.82 Long term (current) use of aspirin; Z79.84 Long term (current) use of oral hypoglycemic drugs; Z79.85 Long-term (current) use of injectable non-insulin antidiabetic drugs; Z79.899 Other long term (current) drug therapy; Z82.49 Family history of ischemic heart disease and other diseases of the circulatory system; R29.704 NIHSS score 4
CPT/HCPCS: 36415; 37215; 70450; 70496; 70498; 70551; 76937; 80048; 80053; 80061; 82962; 85025; 85347; 85610; 85730; 86850; 86900; 86901; 92526; 92610; 93005; 94668; 94762; 97116; 97162; 97166; 97802; 99252; A4648; C1725; C1769; C1876; C1884; C1894; J7030; J7040; Q9967; G0463; J2405

== ENCOUNTER → 2024-10-22 | Outpatient (CLI) | payer MEDICARE, OTHER, SELFPAY ==
--- NOTE | 2024-10-22 12:53 | CDU_ITS ---
Reason For Study: S/P R TCAR Rt. Velocities/BP Lt. Velocities/BP Prox CCA 32.2/10.9 cm/sec. Prox CCA 83.9/24.9 cm/sec. Mid CCA, Pre Stent, 39.4/16.6 cm/s. Mid CCA 74.0/16.3 cm/sec. Dist CCA, Prox Stent, 45.0/17.3 cm/s. Dist CCA 79.0/26.2 cm/sec. Prox ICA, Mid Stent, 50.0/15.9 cm/s. Prox ICA 146.7/55.3 cm/sec. Mid ICA, Dist Stent, 52.9/18.0 cm/s. Mid ICA 90.5/37.3 cm/sec. Dist ICA, Post Stent, 63.9/26.4 cm/s. Dist ICA 65.2/31.1 cm/sec. Rt. ICA/CCA = 1.6. Lt. ICA/CCA = 2.0. Prox ECA 30.8/7.3 cm/sec. Prox ECA 102.8/18.8 cm/sec. Rt. Vert. 45.6/18.6 cm/sec. Lt. Vert. 24.8/5.7 cm/sec. Right Extracranial There is homogeneous, smooth atherosclerotic plaque noted in the right common carotid artery. There is heterogeneous, irregular atherosclerotic plaque noted in the right internal carotid artery. There is heterogeneous, irregular atherosclerotic plaque noted in the right external carotid artery. Antegrade flow is noted in the right vertebral artery. Left Extracranial There is heterogeneous, irregular atherosclerotic plaque noted in the left common carotid artery. There is heterogeneous, irregular atherosclerotic plaque noted in the left internal carotid artery. There is heterogeneous, irregular atherosclerotic plaque noted in the left external carotid artery. Antegrade flow is noted in the left vertebral artery. Procedure Carotid Duplex 08008. This is a Carotid Duplex examination using B-mode, color flow and specral Doppler. Exam performed in department. VL/Carotid Duplex Ultrasound Interpretation Summary Mild (<50%) stenosis right extracranial internal carotid. Moderate (50-69%) stenosis left extracranial internal carotid. Patent and antegrade vertebrals bilaterally. Ordering Physician: Belen Burciaga Referring Physician: Severino Hylton Performed By: Tracy Valdez RVT and Student
== END | disposition home or self-care (01) ==
LOC: CVS 12:52
PROVIDERS: PCP Internal Medicine; Referring Provider Physician Assistant; Visit Provider Physician Assistant
DX: Z48.812 Encounter for surgical aftercare following surgery on the circulatory system (principal); I65.23 Occlusion and stenosis of bilateral carotid arteries
CPT/HCPCS: 93880

== ENCOUNTER → 2024-11-21 | Outpatient (CLI) | payer MEDICARE, OTHER, SELFPAY | END | disposition home or self-care (01) | PROVIDERS: PCP Internal Medicine; Referring Provider Physician Assistant; Visit Provider Physician Assistant | DX: I65.21 Occlusion and stenosis of right carotid artery (principal); Z98.62 Peripheral vascular angioplasty status | CPT/HCPCS: 36415 ==

== ENCOUNTER → 2024-11-25 | Outpatient (CLI) | payer MEDICARE, OTHER, SELFPAY ==
[2024-11-25 11:00] LABS: Absolute Lymphocyte Count 1.75 X10^3/uL (0.83-4.51); Absolute Neutrophil Count 5.4 X10^3/uL (2.0-7.7); Basophil# 0.06 X10^3/uL; Basophil% 0.8 % (0-1); Eosinophil# 0.09 X10^3/uL; Eosinophils% 1.2 % (0-5); Hematocrit 44.1 % (40-54); Hemoglobin 14.1 g/dL (13.0-16.5); Lymphocyte # 1.75 X10^3/ul (0.83-4.51); Lymphocyte % 22.7 % (19-41); Mean Corpuscular Hgb 27.3 pg (27.0-32.0); Mean Corpuscular Volume 85.5 fL (80-94); Mean Platelet Vol. 8.6 fl (6.2-12.0); Monocyte# 0.39 X10^3/uL; Monocyte% 5.1 % (0-10); NRBC Flagged by Analyzer 0 % (0-5); Neutrophil % 69.9 % (47-70); Platelet Count 273 K/mm3 (150-450); RBC Distribution Width CV 13.7 % (11.6-14.6); RBC Distribution Width SD 42.3 fl (35.1-43.9); Red Blood Count 5.16 M/mm3 (4.6-6.2); White Blood Count 7.7 K/mm3 (4.4-11.0)
== END | disposition home or self-care (01) ==
PROVIDERS: PCP Internal Medicine; Referring Provider Physician Assistant; Visit Provider Physician Assistant
DX: Z48.812 Encounter for surgical aftercare following surgery on the circulatory system (principal)
CPT/HCPCS: 85025

== ENCOUNTER 2025-01-02 15:00 | Outpatient (RCR) | payer MEDICARE, OTHER, SELFPAY ==
--- NOTE | 2024-12-03 15:55 | HP.PTEVAL_ITS ---
Patient's Visit Information Visit Information Visit Information: REJI JUSTICE is a 74 year old M referred to Physical Therapy by Dr. Severino Hylton MD with a diagnosis of abnormalities of gait. Date of Evaluation: 12/03/24 Physical Therapist: Sai Braun, JOET, OCS, CSCS Visit Plan Frequency: 3x /Week Duration: 4-6 Weeks Plan: 3x/week for 3-6 weeks for 1. teach gym based LE and core and postural strngth to progress to I at [facility] with list 2. funcitonal golf club swing and irregalar surface walking/ weight shifting to HEP Subjective Subjective: 09/18 24 Had carotid stent suffered stroke. Symptoms were slurred speech and weakness. In hospital 2 nights and home on . Was back to normal mostly within a day or so xcept peripheral vision in L eye. Is on plavix for 3 weeks and feels weak. Body is rejecting plavix. Now on baby aspirin. Needs to gt strength back. feels weak in legs and fatigue. Sleep is OK Pain is not an issue. Dizzyness is only when he sits up from lying. 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 ipad. Basic ADLS now all I Living with , can do steps but they fatigue him. Driving is out due to peripheral vision, will wait 3+ months. Wants to golf but does not feel like strong enough. No regular ex except walking at previous job. belongs to [employer] Objective Objective: Walks into PT I with a wide ANNIE but otherwise looking good feeling a littl tired. Transfers chair I without UE, steps are reciprocal with one rail I. LE AROM WFL and moving well, HS are etight at -35 on 90/90 test, gastroc tight at 0 DF B. reflexes 2/3 patella and achilles B Sensation LE WNL to gross light touch B. reciprocal toe tap coordination is good B. strngth hips 3+/5 flexion, abd and ext with instability in core knee ext adn flexion 4/5 ankles 4+/5 B. Overall doing well Balance/Special Test Scores Functional Gait Assessment Score: 24 % Disability: 20.0000 Lower Extremity Functional Score: 35 30 Second Chair Rise Test Seconds: 19 Goals Goal 1:: I appropriate gym and home based ex to continue improvement. Goal Time Frame: 4-6 Weeks Goal 2:: FGA to reduce fall risk Goal Time Frame: 4-6 Weeks Goal 3:: swing golf club confidently and without LOB Goal Time Frame: 4-6 Weeks Goal 4:: Pt feel 90% back to normal Goal Time Frame: 4-6 Weeks Rehabilitation Potential Physical Therapy Diagnosis: slightly poor balance and faitgue limiting comfortable activity. Rehabilitation Potential: Good Anticipated Interventions Patient/Client Instruction: Educate patient on: Condition and Plan of Care For the Purpose of:: To decrease pain, To increase ROM, To improve nutrient delivery to tissue, To increase tolerance to activity/condition/position and To improve gait and locomotor functions Therapeutic Exercise to Include: Strength training, Balance training, Postural training and Flexibilty training For the Purpose of:: To increase ROM, To improve nutrient delivery to tissue, To improve muscle performance and motor function, To improve ability to perform ADL's and To increase tolerance to activity/condition/position Functional Training to Include: Functional home training Comments: balance and golf swing For the Purpose of:: To improve muscle performance and motor function, To increase tolerance to activity/condition/position and To improve gait and locomotor functions Text: Thank you for the opportunity to evaluate your patient. For Medicare and Medicare HMO plans, please review the plan of care and approve it. It will need to be FAXED BACK to us at [phone] for Medicare purposes. For Medicare only, by signing this I certify the plan of care. Please let me know if there are questions or concerns regarding this plan of care. Physician Signature: Date:
--- NOTE | 2025-01-02 15:22 | HP.PTDCSUM ---
Discharge Summary D/C summary: It has been my pleasure to treat REJI JUSTICE referred by Dr. Severino Hylton MD, with the diagnosis of abnormalities of gait for a total of 11 visit(s). Discharge Date: 01/02/25 Please see the following information for a summary of their discharge status. Subjective Subjective: Getting better, balance is good, alot stronger. Worked out well. Activities at home including mowing and driving are feel pretty normal. Worked out Sunday and at [employer] and did Ok with that. Saw doctor and A1C is good. has not been golfing but feels like he could. To Doctor 01/19. Overall Improvement % Improvement: 90 Objective Objective/Function: Walking well today and confident. +4 on FGA from start. Swinging pole like golf club I today without a problm. Goals Goal 1:: I appropriate gym and home based ex to continue improvement. Goal Progress: Goal Met Goal 2:: FGA to reduce fall risk Goal Progress: Goal Met Goal 3:: swing golf club confidently and without LOB Goal Progress: Goal Met Goal 4:: Pt feel 90% back to normal Goal Progress: Goal Met Plan Plan: d/c to gym program. D/C Information Discharge Comments: Pt to continue I in gym at [employer]. d/c sentence: If there are questions or concerns regarding this patient's physical therapy, please feel free to call me at [phone]. Thank you for the referral of this patient. Sincerely, Sai Braun, DPT, OCS, CSCS Balance/Gait/Functional tests Balance/Special Test Scores Functional Gait Assessment Score: 29 % Disability: 3.3400 Lower Extremity Functional Score: 66 Tug Test: <10 sec.=free mobile 30 Second Chair Rise Test Seconds: 19 Improvement % Improvement: 90
== END 2025-01-02 19:00 | disposition home or self-care (01) ==
LOC: PT 15:00
PROVIDERS: PCP Internal Medicine; Visit Provider Internal Medicine
DX: R26.89 Other abnormalities of gait and mobility (principal)
CPT/HCPCS: 97110; 97162; 97164

== ENCOUNTER → 2025-03-18 | Outpatient (CLI) | payer MEDICARE, OTHER, SELFPAY ==
[2025-03-18 15:26] LABS: Absolute Neutrophil Count 4.4 X10^3/uL (2.0-7.7); Basophil# 0.05 X10^3/uL; Basophil% 0.7 % (0-1); Eosinophil# 0.09 X10^3/uL; Eosinophils% 1.3 % (0-5); Hemoglobin 13.5 g/dL (13.0-16.5); Lymphocyte % 23.7 % (19-41); Mean Corp Hgb Conc 32.1 g/dL (32-36); Mean Corpuscular Hgb 27.2 pg (27.0-32.0); Mean Corpuscular Volume 84.5 fL (80-94); Mean Platelet Vol. 8.9 fl (6.2-12.0); Monocyte# 0.55 X10^3/uL; Monocyte% 8.2 % (0-10); NRBC Flagged by Analyzer 0 % (0-5); Neutrophil # 4.43 X10^3/uL (2.7-7.7); Neutrophil % 65.8 % (47-70); Platelet Count 246 K/mm3 (150-450); RBC Distribution Width CV 13.9 % (11.6-14.6); RBC Distribution Width SD 42.5 fl (35.1-43.9); Red Blood Count 4.97 M/mm3 (4.6-6.2); White Blood Count 6.7 K/mm3 (4.4-11.0)
[2025-03-18 17:00] LABS: Anion Gap 10 (5-15); BUN 18 mg/dL (4-19); BUN/Creat Ratio 13.4 RATIO (10-20); Carbon Dioxide 22.9 mmol/L (21.0-32.0); Chloride 107 mmol/L (98-108); Creatinine, Serum 1.34 mg/dL (0.70-1.20); EST Glomerular Filtration Rate 56 (>60); Glucose 249 mg/dL (70-99); Potassium 4.3 mmol/L (3.3-5.1); Sodium Level 139 mmol/L (133-145)
== END | disposition home or self-care (01) ==
LOC: BIMLAB 14:37
PROVIDERS: PCP Internal Medicine; Referring Provider Internal Medicine; Visit Provider Internal Medicine
DX: I10 Essential (primary) hypertension (principal); E11.9 Type 2 diabetes mellitus without complications
CPT/HCPCS: 36415; 80048; 85025

== ENCOUNTER → 2025-03-20 | Outpatient (CLI) | payer MEDICARE, OTHER, SELFPAY ==
--- NOTE | 2025-03-20 12:48 | CDU_ITS ---
Reason For Study Reason For Study: S/P Rt TCAR Rt. Velocities/BP Lt. Velocities/BP Prox CCA 32.3/10.9 cm/sec. Prox CCA 94.2/19.4 cm/sec. Mid CCA 39.4/16.6 cm/sec. Mid CCA 74.2/23.0 cm/sec. Dist CCA 45.3/13.4 cm/sec. Dist CCA 107.0/19.4 cm/sec. Prox Stent - 57.6/15.8 cm/s Prox ICA 183.0/60.6 cm/sec. Mid Stent - 56.4/17.1 cm/s Mid ICA 130.8/44.9 cm/sec. Dist Stent - 47.8/17.1 cm/s. Dist ICA 60.4/21.5 cm/sec. Mid ICA 44.9/14.9 cm/sec. Lt. ICA/CCA = 2.5. Dist ICA 53.9/18.3 cm/sec. Prox ECA 98.6/19.5 cm/sec. Rt. ICA/CCA = 1.5. Lt. Vert. 31.0/7.4 cm/sec. Prox ECA 68.6/14.6 cm/sec. Rt. Vert. 42.9/18.3 cm/sec. Right Extracranial There is homogeneous, smooth atherosclerotic plaque noted in the right common carotid artery. There is heterogeneous, irregular atherosclerotic plaque noted in the right internal carotid artery. Stent Noted. There is heterogeneous, irregular atherosclerotic plaque noted in the right external carotid artery. Antegrade flow is noted in the right vertebral artery. Left Extracranial There is heterogeneous, irregular atherosclerotic plaque noted in the left common carotid artery. There is heterogeneous, irregular atherosclerotic plaque noted in the left internal carotid artery. There is heterogeneous, irregular atherosclerotic plaque noted in the left external carotid artery. Antegrade flow is noted in the left vertebral artery. Procedure Carotid Duplex 60600. This is a Carotid Duplex examination using B-mode, color flow and specral Doppler. The exam was diagnostic. Exam performed in department. VL/Carotid Duplex Ultrasound Interpretation Summary Mild (<50%) stenosis right extracranial internal carotid. Moderate (50-69%) stenosis left extracranial internal carotid. Patent and antegrade vertebrals bilaterally. Ordering Physician: Belen Burciaga Referring Physician: Severino Hylton Performed By: Chaz Nguyen RVT
== END | disposition home or self-care (01) ==
LOC: CVS 12:48
PROVIDERS: PCP Internal Medicine; Referring Provider Physician Assistant; Visit Provider Physician Assistant
DX: Z48.812 Encounter for surgical aftercare following surgery on the circulatory system (principal)
CPT/HCPCS: 93880

== ENCOUNTER → 2025-07-03 | Outpatient (CLI) | payer MEDICARE, OTHER, SELFPAY ==
[2025-07-03 10:46] LABS: Hematocrit 42.8 % (40-54); Hemoglobin 14.3 g/dL (13.0-16.5); Immature Granulocytes Count 0.020 X10^3/uL (0.0-0.0); Mean Corp Hgb Conc 33.4 g/dL (32-36); Mean Corpuscular Volume 84.8 fL (80-94); Mean Platelet Vol. 8.8 fl (6.2-12.0); NRBC Flagged by Analyzer 0 % (0-5); Platelet Count 267 K/mm3 (150-450); RBC Distribution Width CV 13.8 % (11.6-14.6); RBC Distribution Width SD 42.5 fl (35.1-43.9); Red Blood Count 5.05 M/mm3 (4.6-6.2); White Blood Count 7.6 K/mm3 (4.4-11.0)
[2025-07-03 11:00] LABS: AST(SGOT) 16 U/L (<=37); Alanine Aminotransfer ALT/SGPT 15 U/L (<=46); Albumin, Serum 3.9 g/dL (3.4-4.8); Alkaline Phosphatase 67 U/L (40-129); Anion Gap 11 (5-15); BUN 22 mg/dL (4-19); BUN/Creat Ratio 14.1 RATIO (10-20); Calcium,Total 9.4 mg/dL (7.6-11.0); Carbon Dioxide 24.8 mmol/L (21.0-32.0); Chloride 104 mmol/L (98-108); Cholesterol 137 mg/dL (<=200); Globulin 3.3 g/dL (2.2-4.2); Glucose 181 mg/dL (70-99); Low Density Lipoprotein Calc. 76 mg/dL; Potassium 4.4 mmol/L (3.3-5.1); Triglycerides 90 mg/dL; Very Low Density Lipoprotein 18 mg/dL (5-40); cholesterol:hdl ratio screen 3.20
== END | disposition home or self-care (01) ==
LOC: MTLAB 08:39
PROVIDERS: PCP Internal Medicine; Referring Provider Physician Assistant; Visit Provider Physician Assistant
DX: E78.5 Hyperlipidemia, unspecified (principal); E11.649 Type 2 diabetes mellitus with hypoglycemia without coma; Z79.4 Long term (current) use of insulin; R53.83 Other fatigue
CPT/HCPCS: 36415; 80053; 80061; 84443; 85025

== ENCOUNTER → 2025-07-07 | Outpatient (CLI) | payer MEDICARE, OTHER, SELFPAY ==
[2025-07-07 12:42] LABS: Vitamin B12 459 pg/mL (180-914)
== END | disposition home or self-care (01) ==
LOC: MTLAB 11:08
PROVIDERS: PCP Internal Medicine
DX: R53.83 Other fatigue (principal)
CPT/HCPCS: 36415; 82607; 84443